=== PATIENT | male | born 1965 | race Hispanic/Latino ===

== ENCOUNTER 2019-01-24 21:23 | Inpatient (IN) | payer BC ==
--- OUTSIDE RECORDS SUMMARY | 2019-01-24 21:27 | XMS REPORT ---
:1965 [facility] Address [address] [place] [address] Dr. Malhotra [address] [place] [id number] Care Team Providers Name Role Phone Unavailable Unavailable Unavailable Problems This patient has no known problems. Allergies, Adverse Reactions, Alerts This patient has no known allergies or adverse reactions. Medications This patient has no known medications.
--- NOTE | 2019-01-24 22:25 | EDPHYS ---
Physician Documentation [facility] Name: Jose Murphy Jr Age: 53 yrs Sex: Male : 1965 Arrival Date: 01/24/2019 Time: 21:26 Bed 28 Private MD: Teto Roberts T ED Physician Gonzales Anguiano HPI: 01/24 22:20 This 53 yrs old Male presents to ER via Wheelchair with complaints of Back rell Pain. 22:20 The patient presents with pain that is acute. The symptoms are located in the left rell scapular area. Historical: - Allergies: 21:40 No Known Allergies; lp1 - Home Meds: 21:40 Cytoxan Oral [Active]; Decadron Oral [Active]; Prilosec 20 mg Oral cpDR 1 cap once lp1 daily [Active]; - PMHx: 21:40 Multiple Myeloma (Poems syndrome); lp1 - PSHx: 21:40 None; lp1 - Immunization history:: Adult Immunizations up to date. - Social history:: Smoking status: Patient/guardian denies using tobacco. - Ebola Screening: : No symptoms or risks identified at this time. - Family history:: not pertinent. ROS: 22:20 Constitutional: Negative for fever, chills, and weight loss, Eyes: Negative for injury, rell pain, redness, and discharge, ENT: Negative for injury, pain, and discharge, Neck: Negative for injury, pain, and swelling, Respiratory: Negative for shortness of breath, cough, wheezing, and pleuritic chest pain, Abdomen/GI: Negative for abdominal pain, nausea, vomiting, diarrhea, and constipation, Back: Negative for injury and pain, : Negative for injury, bleeding, discharge, and swelling, MS/Extremity: Negative for injury and deformity, Skin: Negative for injury, rash, and discoloration, Neuro: Negative for headache, weakness, numbness, tingling, and seizure, Psych: Negative for depression, anxiety, suicide ideation, homicidal ideation, and hallucinations, Allergy/Immunology: Negative for hives, rash, and allergies, Endocrine: Negative for neck swelling, polydipsia, polyuria, polyphagia, and marked weight changes, Hematologic/Lymphatic: Negative for swollen nodes, abnormal bleeding, and unusual bruising. 22:20 Cardiovascular: Positive for chest pain. Exam: 22:20 Constitutional: This is a well developed, well nourished patient who is awake, alert, rell and in no acute distress. Head/Face: Normocephalic, atraumatic. Eyes: Pupils equal round and reactive to light, extra-ocular motions intact. Lids and lashes normal. Conjunctiva and sclera are non-icteric and not injected. Cornea within normal limits. Periorbital areas with no swelling, redness, or edema. ENT: Nares patent. No nasal discharge, no septal abnormalities noted. Tympanic membranes are normal and external auditory canals are clear. Oropharynx with no redness, swelling, or masses, exudates, or evidence of obstruction, uvula midline. Mucous membranes moist. Neck: Trachea midline, no thyromegaly or masses palpated, and no cervical lymphadenopathy. Supple, full range of motion without nuchal rigidity, or vertebral point tenderness. No Meningismus. Chest/axilla: Normal chest wall appearance and motion. Nontender with no deformity. No lesions are appreciated. Cardiovascular: Regular rate and rhythm with a normal S1 and S2. No gallops, murmurs, or rubs. Normal PMI, no JVD. No pulse deficits. Respiratory: Lungs have equal breath sounds bilaterally, clear to auscultation and percussion. No rales, rhonchi or wheezes noted. No increased work of breathing, no retractions or nasal flaring. Abdomen/GI: Soft, non-tender, with normal bowel sounds. No distension or tympany. No guarding or rebound. No evidence of tenderness throughout. Back: No spinal tenderness. No costovertebral tenderness. Full range of motion. Skin: Warm, dry with normal turgor. Normal color with no rashes, no lesions, and no evidence of cellulitis. MS/ Extremity: Pulses equal, no cyanosis. Neurovascular intact. Full, normal range of motion. Neuro: Awake and alert, GCS 15, oriented to person, place, time, and situation. Cranial nerves II-XII grossly intact. Motor strength 5/5 in all extremities. Sensory grossly intact. Cerebellar exam normal. Normal gait. Psych: Awake, alert, with orientation to person, place and time. Behavior, mood, and affect are within normal limits. 23:32 Musculoskeletal/extremity: DVT Exam: No signs of deep vein thrombosis. no pain, no rell swelling, no tenderness, negative Homans' sign noted on exam, no appreciated bluish discoloration, no erythema, no increased warmth. Vital Signs: 21:40 BP 162 / 98; Pulse 107; Resp 18; Temp 99.1(O); Pulse Ox 97% on R/A; Weight 90.72 kg; lp1 Height 5 ft. 9 in. (175.26 cm); Pain 7/10; 22:00 BP 155 / 93 RA; Pulse 94; Resp 19 S; Pulse Ox 98% on R/A; rv 22:30 BP 147 / 95 RA Supine; Pulse 94; Resp 19 S; Pulse Ox 96% on R/A; rv 23:30 BP 138 / 94 RA Supine; Pulse 91; Resp 17 S; Pulse Ox 96% on R/A; rv 21:40 Body Mass Index 29.53 (90.72 kg, 175.26 cm) lp1 MDM: 21:54 Patient medically screened. [facility] 22:21 Data reviewed: vital signs, nurses notes, lab test result(s), EKG, radiologic studies, [facility] plain films. 01/24 22:20 Order name: Basic Metabolic Panel; Complete Time: 23:44 [facility] 01/24 22:20 Order name: CBC with Diff [facility] 01/24 22:20 Order name: LFT's; Complete Time: 23:44 [facility] 01/24 22:20 Order name: Magnesium; Complete Time: 23:44 [facility] 01/24 22:20 Order name: NT PRO-BNP; Complete Time: 23:44 [facility] 01/24 22:20 Order name: PT-INR; Complete Time: 23:30 [facility] 01/24 22:20 Order name: Troponin (emerg Dept Use Only); Complete Time: 23:44 [facility] 01/24 23:00 Order name: Manual Differential [facility] 01/24 23:12 Order name: Basic Metabolic Panel [facility] 01/24 23:12 Order name: CBC with Automated Diff [facility] 01/24 23:12 Order name: Lipid Profile [facility] 01/24 23:12 Order name: Lipid Profile [facility] 01/24 23:12 Order name: Troponin I [facility] 01/24 23:12 Order name: Troponin I [facility] 01/24 22:20 Order name: XRAY Chest (1 view) [facility] 01/24 22:20 Order name: EKG; Complete Time: 22:20 [facility] 01/24 23:12 Order name: Echo with Doppler [facility] 01/24 23:12 Order name: Troponin I [facility] 01/24 23:31 Order name: Blood Culture Adult (2) [facility] 01/24 23:31 Order name: Procalcitonin [facility] 01/24 23:46 Order name: CT Aorta for Dissection [facility] 01/24 22:20 Order name: Cardiac monitoring; Complete Time: 22:52 [facility] 01/24 22:20 Order name: EKG - Nurse/Tech; Complete Time: 22:52 [facility] 01/24 22:20 Order name: IV Saline Lock; Complete Time: 22:52 [facility] 01/24 22:20 Order name: Labs collected and sent; Complete Time: 22:52 [facility] 01/24 22:20 Order name: O2 Per Protocol; Complete Time: 22:52 [facility] 01/24 22:20 Order name: O2 Sat Monitoring; Complete Time: 22:52 [facility] 01/24 23:12 Order name: Heart Healthy [facility] 01/24 23:12 Order name: EKG Electrocardiogram [facility] 01/24 23:12 Order name: EKG Electrocardiogram [facility] 01/24 23:44 Order name: EKG; Complete Time: 23:45 [facility] 01/24 23:44 Order name: EKG - Nurse/Tech; Complete Time: 00:05 [facility] Administered Medications: 22:48 Drug: Aspirin 162 mg Route: PO; rv 01/25 00:44 Follow up: Response: No adverse reaction rv 01/24 22:48 Drug: Lopressor (metoprolol TARTRATE) 50 mg Route: PO; rv 01/25 00:43 Follow up: Response: No adverse reaction rv 01/24 22:48 Drug: morphine 4 mg Route: IVP; Site: left antecubital; rv 01/25 00:42 Follow up: Response: Marked relief of symptoms rv 01/24 22:48 Drug: Zofran 4 mg Route: IVP; Site: left antecubital; rv 01/25 00:38 Follow up: Response: No adverse reaction rv 00:15 Drug: Lovenox 1 mg/kg Route: Sub-Q; Site: left lower abdomen; rv 00:43 Follow up: Response: No adverse reaction rv 00:18 Drug: Rocephin - (cefTRIAXone) 1 grams Route: IVPB; Infused Over: 30 mins; Site: left rv antecubital; 00:41 Follow up: IV Status: Completed infusion rv 00:18 Drug: Lopressor 5 mg Route: IVP; Site: left antecubital; rv 00:40 Follow up: Response: No adverse reaction rv 00:19 Drug: PlaVIX 600 mg Route: PO; rv 00:40 Follow up: Response: No adverse reaction rv 00:19 Drug: Pepcid 20 mg Route: IVP; Site: left antecubital; rv 00:39 Follow up: Response: No adverse reaction rv Disposition: 01/24/19 22:24 Hospitalization ordered by Shala Osei for Inpatient Admission. Preliminary diagnosis are Chest pain, unspecified, Essential (primary) hypertension, Multiple myeloma - began chemo today, Elevated white blood cell count, Non-ST elevation (NSTEMI) myocardial infarction. - Bed requested for Telemetry/MedSurg (Inpatient). - Status is Inpatient Admission. rv - Condition is Fair. - Problem is new. - Symptoms have improved. UTI on Admission? No Signatures: Dispatcher [employer] EDMS Gonzales Anguiano MD MD cha Pena, Laura RN RN lp1 Ida Larios mw2 Avila Thomas RN RN rv Corrections: (The following items were deleted from the chart) 01/24 23:43 22:24 Hospitalization Ordered by Shala Osei MD for Observation. Preliminary mw2 diagnosis is Chest pain, unspecified; Essential (primary) hypertension; Multiple myeloma - began chemo today. Bed requested for Telemetry/MedSurg (observation). Status is Observation. Condition is Fair. Problem is new. Symptoms have improved. UTI on Admission? No. rell 23:46 23:43 01/24/2019 22:24 Hospitalization Ordered by Shala Osei MD for Observation. rell Preliminary diagnosis is Chest pain, unspecified; Essential (primary) hypertension; Multiple myeloma - began chemo today. Bed requested for Telemetry/MedSurg (observation). Status is Observation. Condition is Fair. Problem is new. Symptoms have improved. UTI on Admission? No. mw2 23:47 23:46 01/24/2019 22:24 Hospitalization Ordered by Shala Osei MD for Inpatient rell Admission. Preliminary diagnosis is Chest pain, unspecified; Essential (primary) hypertension; Multiple myeloma - began chemo today. Bed requested for Telemetry/MedSurg (Inpatient). Status is Inpatient Admission. Condition is Fair. Problem is new. Symptoms have improved. UTI on Admission? No. rell 23:50 23:47 01/24/2019 22:24 Hospitalization Ordered by Shala Osei MD for Inpatient mw2 Admission. Preliminary diagnosis is Chest pain, unspecified; Essential (primary) hypertension; Multiple myeloma - began chemo today; Elevated white blood cell count; Non-ST elevation (NSTEMI) myocardial infarction. Bed requested for Telemetry/MedSurg (Inpatient). Status is Inpatient Admission. Condition is Fair. Problem is new. Symptoms have improved. UTI on Admission? No. rell 01/25 00:54 01/24 23:50 01/24/2019 22:24 Hospitalization Ordered by Shala Osei MD for Inpatient rv Admission. Preliminary diagnosis is Chest pain, unspecified; Essential (primary) hypertension; Multiple myeloma - began chemo today; Elevated white blood cell count; Non-ST elevation (NSTEMI) myocardial infarction. Bed requested for Telemetry/MedSurg (Inpatient). Status is Inpatient Admission. Condition is Fair. Problem is new. Symptoms have improved. UTI on Admission? No. mw2
--- NOTE | 2019-01-24 22:25 | ER ---
Nurse's Notes [facility] Name: Jose Murphy Jr Age: 53 yrs Sex: Male : 1965 Arrival Date: 01/24/2019 Time: 21:26 Bed 28 Private MD: Teto Roberts T Diagnosis: Chest pain, unspecified;Essential (primary) hypertension;Multiple myeloma-began chemo today;Elevated white blood cell count;Non-ST elevation (NSTEMI) myocardial infarction Presentation: 01/24 21:38 Presenting complaint: Patient states: Chest and arm pain since Tuesday, L shoulder blade lp1 pain that has been all day today; States taking first dose of Decadron and Cytoxan today for Multiple Myeloma. Transition of care: patient was not received from another setting of care. Onset of symptoms was January 24, 2019. Risk Assessment: Do you want to hurt yourself or someone else? Patient reports no desire to harm self or others. Initial Sepsis Screen: Does the patient meet any 2 criteria? No. Patient's initial sepsis screen is negative. Does the patient have a suspected source of infection? No. Patient's initial sepsis screen is negative. Care prior to arrival: None. 21:38 Method Of Arrival: Wheelchair lp1 21:38 Acuity: SEA 3 lp1 Historical: - Allergies: 21:40 No Known Allergies; lp1 - Home Meds: 21:40 Cytoxan Oral [Active]; Decadron Oral [Active]; Prilosec 20 mg Oral cpDR 1 cap once lp1 daily [Active]; - PMHx: 21:40 Multiple Myeloma (Poems syndrome); lp1 - PSHx: 21:40 None; lp1 - Immunization history:: Adult Immunizations up to date. - Social history:: Smoking status: Patient/guardian denies using tobacco. - Ebola Screening: : No symptoms or risks identified at this time. - Family history:: not pertinent. Screenin:41 Abuse screen: Denies threats or abuse. Denies injuries from another. Nutritional lp1 screening: No deficits noted. Tuberculosis screening: No symptoms or risk factors identified. 21:46 Fall Risk None identified. rv Assessment: 21:44 General: Appears in no apparent distress. comfortable, Behavior is calm, cooperative. rv Pain: Complains of pain in RIGHT SHOULDER\E\. Pain: Pain does not radiate. Neuro: Level of Consciousness is awake, alert, obeys commands, Oriented to person, place, time, situation. Cardiovascular: Capillary refill < 3 seconds Rhythm is sinus tachycardia. Respiratory: Airway is patent. GI: No signs and/or symptoms were reported involving the gastrointestinal system. : No signs and/or symptoms were reported regarding the genitourinary system. EENT: No signs and/or symptoms were reported regarding the EENT system. Derm: Skin is intact. Musculoskeletal: Reports pain in RIGHT SHOULDER. 01/25 00:00 Reassessment: Patient appears in no apparent distress at this time. Patient and/or rv family updated on plan of care and expected duration. Pain level reassessed. Patient is alert, oriented x 3, equal unlabored respirations, skin warm/dry/pink. Vital Signs: 01/24 21:40 BP 162 / 98; Pulse 107; Resp 18; Temp 99.1(O); Pulse Ox 97% on R/A; Weight 90.72 kg; lp1 Height 5 ft. 9 in. (175.26 cm); Pain /10; 22:00 BP 155 / 93 RA; Pulse 94; Resp 19 S; Pulse Ox 98% on R/A; rv 22:30 BP 147 / 95 RA Supine; Pulse 94; Resp 19 S; Pulse Ox 96% on R/A; rv 23:30 BP 138 / 94 RA Supine; Pulse 91; Resp 17 S; Pulse Ox 96% on R/A; rv 21:40 Body Mass Index 29.53 (90.72 kg, 175.26 cm) lp1 ED Course: 21:26 Patient arrived in ED. do 21:27 Teto Roberts MD is Private Physician. do 21:38 EKG done, by ED staff. lp1 21:39 Triage completed. lp1 21:41 Arm band placed on left wrist. lp1 21:41 Patient has correct armband on for positive identification. Placed in gown. Bed in low lp1 position. brick extruder operator on. Pulse ox on. NIBP on. 21:44 Avila Thomas RN is Primary Nurse. rv 21:54 Gonzales Anguiano MD is Attending Physician. rell 22:22 Shala Osei MD is Hospitalizing Provider. rell 22:45 Inserted saline lock: 20 gauge in left antecubital area, using aseptic technique. Blood rv collected. 22:53 XRAY Chest (1 view) In Process Unspecified. EDMS 23:40 Notified ED physician of a critical lab result(s). Troponin of 0.96. Dr Anguiano bb notified. 23:59 First set of blood cultures drawn by me, Second set of blood cultures drawn by me. lt1 04 00:29 CT completed. Patient tolerated procedure well. Patient moved to CT via stretcher. Patient moved back from CT. 00:44 CT Aorta for Dissection Sent. rv 00:44 No provider procedures requiring assistance completed. Patient admitted, IV remains in rv place. Administered Medications: 01/24 22:48 Drug: Aspirin 162 mg Route: PO; rv 01/25 00:44 Follow up: Response: No adverse reaction rv 01/24 22:48 Drug: Lopressor (metoprolol TARTRATE) 50 mg Route: PO; rv 01/25 00:43 Follow up: Response: No adverse reaction rv 01/24 22:48 Drug: morphine 4 mg Route: IVP; Site: left antecubital; rv 01/25 00:42 Follow up: Response: Marked relief of symptoms rv 01/24 22:48 Drug: Zofran 4 mg Route: IVP; Site: left antecubital; rv 01/25 00:38 Follow up: Response: No adverse reaction rv 00:15 Drug: Lovenox 1 mg/kg Route: Sub-Q; Site: left lower abdomen; rv 00:43 Follow up: Response: No adverse reaction rv 00:18 Drug: Rocephin - (cefTRIAXone) 1 grams Route: IVPB; Infused Over: 30 mins; Site: left rv antecubital; 00:41 Follow up: IV Status: Completed infusion rv 00:18 Drug: Lopressor 5 mg Route: IVP; Site: left antecubital; rv 00:40 Follow up: Response: No adverse reaction rv 00:19 Drug: PlaVIX 600 mg Route: PO; rv 00:40 Follow up: Response: No adverse reaction rv 00:19 Drug: Pepcid 20 mg Route: IVP; Site: left antecubital; rv 00:39 Follow up: Response: No adverse reaction rv Outcome: 01/24 22:24 Decision to Hospitalize by Provider. rell 01/25 00:44 Admitted to Med/surg accompanied by tech, via wheelchair, room 206, with chart, Report rv called to FABIÁN PRAJAPATI Condition: good Instructed on the need for admit, Demonstrated understanding of instructions. 00:54 Patient left the ED. rv Signatures: Dispatcher [employer] EDGonzales Danielle MD MD cha Hagler, Ervin eh Ballard, Brenda, RN RN bb Salima Barrera RN RN lp1 Corrie Briceño Ronaldo RN RN Lali Bedolla 1
[2019-01-24] MEDS ORDERED: MORPHINE 4 MG/ML SYR ONE (22:38)
[2019-01-24] MEDS ORDERED: METOPROLOL TAR 50 MG TAB ONE (22:38)
[2019-01-24] MEDS ORDERED: ASPIRIN 81 MG CHEWABLE TABLET ONE (22:38)
[2019-01-24] MEDS ORDERED: ENOXAPARIN 100 MG/ML SYR SQ ONE (22:39)
[2019-01-24] MEDS ORDERED: ONDANSETRON 4 MG/2 ML VIAL ONE (22:39)
[2019-01-24 22:57] LABS: Absolute Lymphocytes (CBC) 1.2 K/uL (0.7-4.9); Absolute Monocytes 0.1 K/uL (0.1-1.3); Absolute Neutrophil 24.2 K/uL (1.8-8.0); Basophils % 0.4 % (0-1.3); Lymphocytes % 4.6 % (15.3-44.8); MPV 6.5 fL (7.6-11.3); Monocytes % 0.5 % (3.3-12.3); RBC Red Blood Cell Count 5.21 M/uL (4.33-5.43)
[2019-01-24 23:00] LABS: Protime INR 1.18
[2019-01-24] MEDS ORDERED: ACETAMINOPHEN 500 MG TAB PO PRN (23:08)
[2019-01-24] MEDS ORDERED: ALPRAZOLAM 0.25 MG TABLET PO PRN (23:08)
[2019-01-24] MEDS ORDERED: MORPHINE 4 MG/ML SYR IV PRN (23:08)
[2019-01-24 23:39] LABS: Albumin 3.7 g/dL (3.4-5.0); Bilirubin Direct 0.2 mg/dL (0-0.2); Bilirubin Total 0.6 mg/dL (0.2-1.0); Magnesium 2.1 mg/dL (1.8-2.4); Potassium 4.6 mmol/L (3.5-5.1); Protein, Total 7.8 g/dL (6.4-8.2)
[2019-01-24 23:42] LABS: Troponin (Emerg Dept Use Only) 0.96 ng/mL (0.0-0.045)
[2019-01-24 23:46] LABS: Blood Morphology Comment NOT SEEN (NOT SEEN); Platelet Estimate INCR
[2019-01-25] MEDS ORDERED: METOPROLOL TARTRATE 5 MG/5 ML INJ IV ONE (00:19)
[2019-01-25] MEDS ORDERED: CEFTRIAXONE/SWI 1gm 1 GM/10 ML SYR ONE (00:19)
[2019-01-25] MEDS ORDERED: CLOPIDOGREL 75 MG TABLET ONE (00:19)
[2019-01-25] MEDS ORDERED: FAMOTIDINE 20 MG/2 ML VIAL IV ONE (00:19)
[2019-01-25 07:51] LABS: Potassium 4.7 mmol/L (3.5-5.1)
[2019-01-25 08:09] LABS: Troponin I 2.47 ng/mL (0.0-0.045)
[2019-01-25 08:10] LABS: Absolute Lymphocytes (CBC) 1.1 K/uL (0.7-4.9); Absolute Monocytes 0.6 K/uL (0.1-1.3); Absolute Neutrophil 21.4 K/uL (1.8-8.0); Basophils % 0.1 % (0-1.3); Lymphocytes % 4.9 % (15.3-44.8); MPV 6.7 fL (7.6-11.3); Monocytes % 2.5 % (3.3-12.3); RBC Red Blood Cell Count 5.02 M/uL (4.33-5.43)
--- NOTE | 2019-01-25 08:17 | EKG ---
Test Date: 2019-01-24 Test Time: 23:56:10 Weapons Designer: MEASUREMENT RESULTS: Intervals: Rate: 85 [place]: 142 QRSD: 86 QT: 332 QTc: 395 [place]: P: 45 [place]: 142 QRS: 1 T: 10 INTERPRETIVE STATEMENTS: Normal sinus rhythm Nonspecific T wave abnormality Abnormal ECG Compared to ECG 01/24/2019 21:35:23 T-wave abnormality now present Sinus tachycardia no longer present Electronically Signed On 01-25-19 07:50:18 CDT by Mario Crandall
--- NOTE | 2019-01-25 08:18 | EKG ---
Test Date: 2019-01-24 Test Time: 21:35:23 Feed Elevator Worker: JESSICA MEASUREMENT RESULTS: Intervals: Rate: 108 [place]: 144 QRSD: 88 QT: 314 QTc: 420 [place]: P: 41 [place]: 144 QRS: -10 T: 0 INTERPRETIVE STATEMENTS: Sinus tachycardia Otherwise normal ECG No previous ECG available for comparison Electronically Signed On 01-25-19 07:51:04 CDT by Mario Crandall
--- NOTE | 2019-01-25 08:57 | RAD REPORT ---
EXAM DESCRIPTION: RAD - Chest Single View - 01/24/2019 10:52 pm CLINICAL HISTORY: CHEST PAIN Chest pain. COMPARISON: No comparisons FINDINGS: Portable technique limits examination quality. The lungs are grossly clear. The heart is normal in size. No displaced fractures. IMPRESSION: No acute intrathoracic process suspected.
[2019-01-25] MEDS ORDERED: ENOXAPARIN 40 MG/0.4 ML SQ SCH (09:00)
[2019-01-25] MEDS: METOPROLOL TAR 50 MG TAB PO SCH ×2 (09:10→20:42)
[2019-01-25] MEDS: ASPIRIN EC 81 MG TAB PO SCH (09:11)
--- NOTE | 2019-01-25 09:50 | RAD REPORT ---
EXAM DESCRIPTION: RAD - Chest Single View - 01/25/2019 8:43 am CLINICAL HISTORY: Elevated Trop Chest pain. COMPARISON: Chest Single View dated 01/24/2019 FINDINGS: Portable technique limits examination quality. The lungs are grossly clear. The heart is normal in size. No displaced fractures. IMPRESSION: No acute intrathoracic process suspected.
--- NOTE | 2019-01-25 10:32 | P.HP ---
Certification for Inpatient Patient admitted to: Observation With expected LOS: <2 Midnights Patient will require the following post-hospital care: None Practitioner: I am a practitioner with admitting privileges, knowledge of patient current condition, hospital course, and medical plan of care. Services: Services provided to patient in accordance with Admission requirements found in Title 42 Section 412.3 of the Code of Federal Regulations Patient History Date of Service: 01/24/19 Reason for admission: DYSPNEA AND CHEST PAIN History of Present Illness: PATIENT IS A 53-YEAR-OLD GENTLEMAN WHO RECEIVED HIS 1ST COURSE OF CHEMOTHERAPY YESTERDAY AT [facility]. PATIENT IS BEING TREATED FOR MULTIPLE MYELOMA. AFTER THE CHEMOTHERAPY PATIENT STATES HE BECAME SHORT OF BREATH. HE WAS HAVING A HARD TIME CATCHING HIS BREATH AND HE CAME INTO THE EMERGENCY ROOM. HE DID HAVE SOME CHEST DISCOMFORT WELL. HOWEVER, SHORTLY AFTER COMING TO THE ER IN GETTING PAIN MEDICATION HIS SYMPTOMS SUBSIDED AND HE WAS FEELING MUCH BETTER. HIS CHEST PAIN HAS COMPLETELY RESOLVED. CURRENTLY HE FEELS LIKE HE IS FEELING GOOD ENOUGH FOR DISCHARGE HOME. WE DO HAVE SERIAL TROPONINS AND EKG PENDING. HE STATES HE HAD AN ECHOCARDIOGRAM AND STRESS TEST PERFORMED ALL IN THE LAST YEAR. THERE WAS NO SIGNIFICANT ABNORMALITY. WILL RULE HIM OUT FOR ACUTE CORONARY SYNDROME AND THEN POSSIBLE DISCHARGE AFTERWARDS. Allergies No Known Allergies Allergy (Unverified 09/22/12 00:44) Home Medications: Cyclophosphamide 50 mg PO DAILY 01/25/19 Dexamethasone [Decadron] 4 mg PO DAILY 01/25/19 Omeprazole 1 tab PO DAILY 01/25/19 Ondansetron [Zofran] 4 mg PO Q6H PRN 01/25/19 - Past Medical/Surgical History Has patient received pneumonia vaccine in the past: No Diabetic: No -: multiple myoloma -: neuropathy Past Surgical History: Patient denies surgical history - Family History Father Medical History: Cancer Mother Medical History: Cancer Notes: breast cancer Brother Medical History: Cancer Notes: prostate - Social History Smoking Status: Former smoker Alcohol use: No CD- Drugs: No Caffeine use: Yes Place of Residence: Home Review of Systems 10-point ROS is otherwise unremarkable Physical Examination - Vital Signs Temperature: 98 F Blood Pressure: 120/69 Pulse: 80 Respirations: 20 Pulse Ox (%): 95 - Physical Exam General: Alert, In no apparent distress, Oriented x3 HEENT: Atraumatic, PERRLA, Mucous membr. moist/pink, EOMI, Sclerae nonicteric Neck: Supple, 2+ carotid pulse no bruit, No LAD, Without JVD or thyroid abnormality Respiratory: Clear to auscultation bilaterally, Normal air movement Cardiovascular: Regular rate/rhythm, Normal S1 S2, No murmurs Gastrointestinal: Normal bowel sounds, Soft and benign, Non-distended, No tenderness Musculoskeletal: No clubbing, No swelling, No tenderness Integumentary: No rashes Neurological: Normal gait, Normal speech, Normal strength at 5/5 x4 extr, Normal tone, Sensation intact, Cranial nerves 3-12 intact, Normal affect Lymphatics: No axilla or inguinal lymphadenopathy - Studies Laboratory Data (last 24 hrs) 01/24/19 22:45: PT 13.8 H, INR 1.18 01/24/19 22:45: WBC 25.7 H*, Hgb 14.3, Hct 42.0, Plt Count 542 H 01/24/19 22:45: Sodium 135 L, Potassium 4.6, BUN 25 H, Creatinine 1.00, Glucose 185 H, Magnesium 2.1, Total Bilirubin 0.6, AST 17, ALT 18, Alkaline Phosphatase 106 01/24/19 06:50: Sodium Cancelled, Potassium Cancelled, BUN Cancelled, Creatinine Cancelled, Glucose Cancelled 01/24/19 06:50: WBC Cancelled, Hgb Cancelled, Hct Cancelled, Plt Count Cancelled Assessment & Plan - Problems (Diagnosis) (1) Chest pain, rule out acute myocardial infarction Current Visit: Yes Status: Acute (2) Dyspnea Current Visit: Yes Status: Acute - Plan 1. SERIAL TROPONINS AND EKG 2. CARDIOLOGY CONSULTATION 3. ECHOCARDIOGRAM AND INPATIENT STRESS TEST PERFORMED AN OUTPT WHICH WERE NEGATIVE 4. ANTI-PLATELET THERAPY, BETA-TRENA, STATIN, AND O2 NEEDED 5. IV MORPHINE FOR PAIN 6. GI/DVT PROPHYLAXIS; ANTICIPATE DISCHARGE HOME IN THE NEXT 24 HR IF WORKUP IS NEGATIVE Discharge Plan: Home Plan to discharge in: 24 Hours - Advance Directives Does patient have a Living Will: No Does patient have a Durable POA for Healthcare: No - Code Status/Comfort Care Code Status Assessed: Yes Code Status: Full Code Critical Care: No Time Spent Managing PTS Care (In Minutes): 40
[2019-01-25] MEDS ORDERED: PRASUGREL (EFFIENT) 10 MG TAB PO ONE (11:31)
--- NOTE | 2019-01-25 12:22 | RAD REPORT ---
EXAM DESCRIPTION: CT Angiography Chest With Intravenous Contrast CT Angiography Abdomen and Pelvis With Intravenous Contrast CLINICAL HISTORY: The patient is 53 years old and is Male; CHEST PAIN TECHNIQUE: Axial computed tomographic angiography images of the chest, abdomen and pelvis with intra venous contrast using CT angiography protocol. Sagittal and coronal reformatted images were created and reviewed. Sagittal and coronal reformatted images were created and reviewed. This CT exam wa s performed using one or more of the following dose reduction techniques: automated exposure contro l, adjustment of the mA and/or kV according to patient size, and/or use of iterative reconstruction t echnique. MIP reconstructed images were created and reviewed. COMPARISON: No relevant prior studies available. FINDINGS: VASCULATURE: AORTA: No acute findings. No aortic aneurysm. No dissection. PULMONARY ARTERIES: Unremarkable as visualized. No pulmonary embolism is identified. GREAT VESSELS OF AORTIC ARCH: No acute findings. No dissection. No arterial occlusion or sig nificant stenosis. CELIAC TRUNK AND MESENTERIC ARTERIES: No acute findings. No occlusion or significant stenosis. RENAL ARTERIES: No acute findings. No occlusion or significant stenosis. ILIAC ARTERIES: No acute findings. No occlusion or significant stenosis. CHEST: LUNGS: A 4 mm right middle lobe pulmonary nodule is present. Minimal dependent densities are not ed within the lung bases. PLEURAL SPACE: Unremarkable. No significant effusion. No pneumothorax. HEART: Unremarkable. No cardiomegaly. No significant pericardial effusion. ABDOMEN: LIVER: There is a diffuse decrease in hepatic parenchymal density, consistent with fatty infiltr ation. The liver is enlarged. GALLBLADDER AND BILE DUCTS: Unremarkable. No calcified stones. No ductal dilation. PANCREAS: Unremarkable. No ductal dilation. No mass. SPLEEN: Unremarkable. No splenomegaly. ADRENALS: Unremarkable. No mass. KIDNEYS AND URETERS: Bilateral nonspecific perinephric stranding is present. The kidneys enhance symmetrically. No obstructing renal or ureteral calculus is seen. There is no hydronephrosis or hydr oureter of either kidney. No solid mass. STOMACH AND BOWEL: The stomach is moderately distended. The small bowel is normal in caliber. St ool is present throughout the colon. There is no mucosal thickening or evidence of bowel obstruction. PELVIS: APPENDIX: The appendix is normal in caliber without surrounding inflammation. BLADDER: The bladder is well distended. REPRODUCTIVE: Unremarkable as visualized. CHEST, ABDOMEN and PELVIS: INTRAPERITONEAL SPACE: Unremarkable. No significant fluid collection. No free air. BONES/JOINTS: Multiple sclerotic foci are present within the pelvis and throughout the spine. Th is correlates with the recent bone scan. No acute fracture. No dislocation. SOFT TISSUES: Small fat-containing umbilical hernia is present. LYMPH NODES: Shotty retroperitoneal adenopathy is present. Minimally prominent mediastinal and hilar adenopathy is present. IMPRESSION: 1. No evidence of aortic aneurysm or dissection. 2. Extensive sclerotic lesions throughout the axial and appendicular skeleton which correlates to p rior bone scan findings. Findings are concerning for metastatic disease. 3. Prominent mediastinal and hilar adenopathy with extensive shotty retroperitoneal adenopathy. Fin dings are concerning for malignancy. Correlation with patient's history is recommended. 4. Incidental right middle lobe pulmonary nodule. ACR White Paper guidelines (MacMahon, et al. Radi ology 2017; 284(1):228-43) suggest an optional follow-up chest CT could be performed at 12 months due to the high risk of malignancy. If unchanged, no further follow-up is necessary. Electronically signed by: Lucia Murillo MD 01/25/2019 12:49 AM CDT Due to temporary technical issues with the PACS/Fluency reporting system, reports are being signed by the in house radiologist as a courtesy to ensure prompt reporting. The interpreting radiologist is f ully responsible for the content of the report.
--- NOTE | 2019-01-25 12:33 | CON ---
Chief Complaint: Chest pain. History Of Present Illness: Mr. Murphy came to the hospital with chest pain. He saw Dr. Mckoy, who had given him chemotherapy a few days earlier. She thought he might have been having acute coronary syndrome, send him to the ER. He has been in the hospital and has had very abnormal cardiac enzymes. The highest troponin so far is 2.4, the initial one was 0.9. He has no previous history of myocard ial infarction or vascular disease. He is a former cigarette smoker. About 2 weeks ago, he had a no ninvasive cardiac workup, that was normal. He has Rdui syndrome with multiple myeloma and has un dergone one induction chemotherapy. He is on the list to have an autologous bone marrow transplant f or this disease at [facility] and that is why he underwent a noninvasive cardiac workup recently. Lukasz marie has been taking dexamethasone, cyclophosphamide, Zofran, and omeprazole. Physical Examination: Vital Signs: He is 5 feet 9 inches, 197 pounds. General: Alert, oriented, pleasant, not in distress. Lungs: Clear. Heart: Within normal limits. Abdomen: Soft. Extremities: Normal. Diagnostic Data: His EKG shows nonspecific T-wave abnormality. Laboratory Data: Reveals an elevated white blood cell count. Platelet count is also elevated at 606 ,000. His creatinine is 1.0. Blood sugar 185, 153. His total cholesterol is 124. Impression: The patient has had a non-ST elevation non-Q-wave myocardial infarction. He should unde rgo a cardiac cath. Right now, it is just a few hours since he ate and he has had Lovenox this morni ng. My plan is to load him with Effient today, hold Lovenox, make him n.p.o. after midnight, and do a cardiac cath and possible stent tomorrow. The patient seems to understand the procedure, potential benefits, indications, risk s, and agrees to proceed. STEVEN/EBONY Voice ID: [id number] Report ID: [id number]
--- NOTE | 2019-01-25 17:16 | EKG ---
Test Date: 2019-01-25 Test Time: 07:47:26 Training And Documentation Specialist: BOBY MEASUREMENT RESULTS: Intervals: Rate: 82 ID: [id number] QRSD: 92 QT: 370 QTc: 432 [place]: P: 35 ID: [id number] QRS: 7 T: 0 INTERPRETIVE STATEMENTS: Normal sinus rhythm Nonspecific T wave abnormality Abnormal ECG Compared to ECG 01/24/2019 23:56:10 No significant changes Electronically Signed On 01-25-19 17:14:53 CDT by Mario Crandall
--- NOTE | 2019-01-25 17:54 | P.PN ---
Date of Service: 01/25/19 (Oncology) Mr Jose Murphy is known to me from outpatient for management of his recent diagnosis of POEMS syndrome. He initially was referred to me for work up for thrombocytosis. 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 He has been seen and evaluated by Stem cell transplant/ myeloma team in [facility] and currently awaiting transplant. In the meantime, he has been started on induction chemotherapy with oral cyclophosphamide and decadron. He presented to our clinic yesterday with epigastric/chest discomfort with radiation to the left arm along with belching and was advised to go to ER for work up to r/o ACS. As per cardiology, it appears to be NSTEMI and is awaiting cardiac cath tomorrow. He seems symptomatically better and back to his baseline. White count elevation is likely secondary to steroid use. Thrombocytosis due to the underlying POEMS. Please do not hesitate to contact me should you have any questions or concerns.
[2019-01-26] MEDS ORDERED: HEPA 1000U/500MLS 2,000 UNIT/1,000 ML BAG IV ONE (07:19)
[2019-01-26] MEDS ORDERED: LIDOCAINE 1% 20 ML MDV ONE (07:19)
[2019-01-26] MEDS ORDERED: NITROGLYCERIN/D5W 25 MG/250 ML BTL IV ONE (07:28)
[2019-01-26] MEDS ORDERED: HEPARIN 5000 UNIT/ML 1 ML VIAL ONE (07:28)
[2019-01-26] MEDS ORDERED: NICARDIPINE HCL 25 MG/10 ML IV ONE (07:28)
[2019-01-26] MEDS: ASPIRIN EC 81 MG TAB PO SCH (07:28)
[2019-01-26] MEDS ORDERED: ATROPINE SULF 1 MG/10 ML SYR IV ONE (07:28)
[2019-01-26] MEDS ORDERED: NA CHLORIDE 0.9% 0 ML ONE (07:28)
[2019-01-26] MEDS ORDERED: NITROGLYCERIN 100 MCG/ML SYR (for cath lab use only) IV ONE (07:28)
[2019-01-26] MEDS: METOPROLOL TAR 50 MG TAB PO SCH (07:29)
[2019-01-26] MEDS ORDERED: NA CHLORIDE 0.9% 500 ML ONE (07:59)
--- NOTE | 2019-01-26 08:17 | P.PN ---
Subjective Date of Service: 01/25/19 Patient's troponin were elevated. They have started trending downward. He remains asymptomatic. Scheduled for cardiac catheterization for non ST- elevation myocardial infarction Review of Systems 10-point ROS is otherwise unremarkable Physical Examination - Vital Signs Temperature: 98.0 F Blood Pressure: 115/66 Pulse: 70 Respirations: 18 Pulse Ox (%): 97 - Physical Exam General: Alert, In no apparent distress, Oriented x3 Respiratory: Clear to auscultation bilaterally, Normal air movement Cardiovascular: Regular rate/rhythm, Normal S1 S2 Gastrointestinal: Normal bowel sounds, Soft and benign, Non-distended, No tenderness Musculoskeletal: No tenderness Integumentary: No rashes Neurological: Normal speech, Normal tone, Sensation intact, Cranial nerves 3-12 intact, Normal affect Lymphatics: No axilla or inguinal lymphadenopathy - Studies Medications List Reviewed: Yes Assessment & Plan - Problems (Diagnosis) (1) Chest pain, rule out acute myocardial infarction Current Visit: Yes Status: Acute (2) Dyspnea Current Visit: Yes Status: Acute (3) POEMS syndrome Current Visit: Yes Status: Acute (4) Multiple myeloma Current Visit: Yes Status: Acute - Plan 1. SERIAL TROPONINS WERE ELEVATED; CARDIAC CATHETERIZATION MORNING 2. CARDIOLOGY CONSULTATION APPRECIATED 3. ECHOCARDIOGRAM AND INPATIENT STRESS TEST PERFORMED AN OUTPT WHICH WERE NEGATIVE 4. ANTI-PLATELET THERAPY, BETA-TRENA, STATIN, AND O2 NEEDED 5. IV MORPHINE FOR PAIN 6. CONTINUE WITH OUTPT FOLLOW-UP PENDING ONCOLOGY 7. GI/DVT PROPHYLAXIS; ANTICIPATE DISCHARGE HOME IN THE NEXT 24 HR IF WORKUP IS NEGATIVE Discharge Plan: Home Plan to discharge in: Greater than 2 days - Advance Directives Does patient have a Living Will: No Does patient have a Durable POA for Healthcare: No - Code Status/Comfort Care Code Status: Full Code Critical Care: No Time Spent Managing PTS Care (In Minutes): 30
[2019-01-26] MEDS ORDERED: MIDAZOLAM HCL 2 MG/2 ML INJ ONE (08:28)
[2019-01-26] MEDS ORDERED: FENTANYL CITR 100 MCG/2 ML ONE (08:29)
[2019-01-26] MEDS ORDERED: PRASUGREL (EFFIENT) 10 MG TAB PO SCH (09:00)
[2019-01-26] MEDS ORDERED: NITROGLYCERIN 0.4 MG/TAB SL PRN (09:15)
[2019-01-26 09:52] VITALS: O2SAT 97
--- NOTE | 2019-01-26 13:49 | P.PN ---
Subjective Date of Service: 01/26/19 Chief Complaint: DYSPNEA AND CHEST PAIN Subjective: No C/O voiced, Improving Patient seen and examined at bedside. at bedside. Chart reviewed and case discussed with nursing staff and Dr. Crandall. Reports no chest pain at this time. Reports no other symptoms. Dyspnea has resolved States he is doing well. No acute events noted overnight Review of Systems 10-point ROS is otherwise unremarkable Physical Examination - Vital Signs Temperature: 97.8 F Blood Pressure: 121/69 Pulse: 71 Respirations: 16 Pulse Ox (%): 98 - Physical Exam General: Alert, In no apparent distress, Oriented x3 HEENT: Atraumatic, PERRLA, EOMI Neck: Supple, JVD not distended Respiratory: Clear to auscultation bilaterally, Normal air movement Cardiovascular: Regular rate/rhythm, Normal S1 S2 Gastrointestinal: Normal bowel sounds, No tenderness - Studies Medications List Reviewed: Yes Assessment And Plan - Plan This is a 53-year-old male with: Chest pain NSTEMI Chest pain seems to have resolved. Cardiology consultation appreciated. Troponins were elevated, he is status post cardiac catheterization. Per cardiology, coronary is were normal, no blockage found. Though did have apical area of ischemia We will continue small dose Cardizem. He does not need Plavix or beta-tara at this time. Continue IV morphine for pain Provide oxygen if needed Anticipate discharge in the next 24 hr. Multiple myeloma. POEMS syndrome He will continue with outpatient follow up with an oncology. DVT prophylaxis: Lovenox GI prophylaxis: None Diet: Heart healthy Disposition: Pending symptomatic improvement. We will observe the next 1 4 hr , discharge in the morning if clinically stable Discharge Plan: Home Plan to discharge in: 24 Hours
--- NOTE | 2019-01-26 19:52 | OP ---
Surgeon: Mario Crandall MD Procedures: Left heart catheterization, coronary left ventricular angiography. Indication: Ocd-IN-skeimgwia GA. Procedure Findings: The patient has normal coronary arteries. There is no clot or dissection or art erial plaque. There is very slow flow in the distal part of the LAD, and there is also an apical GA. Apical akinesis is noted. All these findings are consistent with a Takotsubo myocardial infarction . Procedure In Detail: The patient was brought to the cardiac laboratory helper in a fasting state, sedated wit h Versed, fentanyl, prepared and draped in usual sterile fashion. Right radial approach was used. W e anesthetized the tissues over the right radial artery using 1% lidocaine after an appropriate time- out. We entered the artery with a 21-gauge needle, cannulated it with a 0.021 inch diameter guidewir e, placed a 6-Barb[place] Terumo sheath, flushed it, gave a radial cocktail consisting of nicardipine, hep rich and nitroglycerin. We guided a TIG catheter into the ascending aorta, coronary sinus region usi ng a Terumo Glidewire and fluoroscopy. The wire was removed. We were able to place the catheter tip in the right coronary, left coronary, and left ventricle without any problems. At the end of the pr ocedure, it was apparent no angioplasty or other intervention would be done. We removed the TIG cath eter using a guidewire to keep it as straight as possible, flushed the sheath, removed it, and closed the arteriotomy with a TR band. Estimated Blood Loss: 5 cc. Complications: None. Heavy Equipment Plumbing Supervisor: El Hardwick. STEVEN/EBONY Voice ID: [id number] Report ID: [id number]
[2019-01-27 05:18] VITALS: BMI 27.9
[2019-01-27] MEDS: ASPIRIN EC 81 MG TAB PO SCH (08:45)
[2019-01-27] MEDS ORDERED: DILTIAZEM HCL 120 MG SR CAP PO SCH (09:00)
[2019-01-27 09:49] VITALS: TEMP 97.7
--- NOTE | 2019-01-27 12:25 | P.DS ---
Admission Date: 01/25/19 Discharge Date: 01/27/19 Disposition: ROUTINE DISCHARGE Discharge Condition: GOOD Reason for Admission: DYSPNEA AND CHEST PAIN Consultations: Cardiology Oncology Brief History of Present Illness: PATIENT IS A 53-YEAR-OLD GENTLEMAN WHO RECEIVED HIS 1ST COURSE OF CHEMOTHERAPY YESTERDAY AT [facility]. PATIENT IS BEING TREATED FOR MULTIPLE MYELOMA. AFTER THE CHEMOTHERAPY PATIENT STATES HE BECAME SHORT OF BREATH. HE WAS HAVING A HARD TIME CATCHING HIS BREATH AND HE CAME INTO THE EMERGENCY ROOM. HE DID HAVE SOME CHEST DISCOMFORT WELL. HOWEVER, SHORTLY AFTER COMING TO THE ER IN GETTING PAIN MEDICATION HIS SYMPTOMS SUBSIDED AND HE WAS FEELING MUCH BETTER. HIS CHEST PAIN HAS COMPLETELY RESOLVED. CURRENTLY HE FEELS LIKE HE IS FEELING GOOD ENOUGH FOR DISCHARGE HOME. WE DO HAVE SERIAL TROPONINS AND EKG PENDING. HE STATES HE HAD AN ECHOCARDIOGRAM AND STRESS TEST PERFORMED ALL IN THE LAST YEAR. THERE WAS NO SIGNIFICANT ABNORMALITY. WILL RULE HIM OUT FOR ACUTE CORONARY SYNDROME AND THEN POSSIBLE DISCHARGE AFTERWARDS Hospital Course: Chest pain NSTEMI Chest pain seems to have resolved. Cardiology was consulted. Troponins were elevated, he is status post cardiac catheterization. Per cardiology, coronary is were normal, no blockage found. Though did have apical area of ischemia We will continue small dose Cardizem. He does not need beta-tara at this time. He otherwise remained stable throughout the stay. He will follow up with cardiology in 2 weeks. Multiple myeloma. POEMS syndrome He will continue with outpatient follow up with an oncology. Prior to discharge, patient was symptom free, tolerating PO, ambulating without concerns. He was hemodynamically stable. His cath site was without any hematoma or pain. His diagnosis and treatment plan were discussed with patient and at bedside. All questions were answered. They verbalized understanding. He was discharged in a safe and stable manner. Vital Signs/Physical Exam: Temp Pulse Resp BP Pulse Ox 97.7 F 83 16 114/72 98 01/27/19 08:00 01/27/19 08:45 01/27/19 08:00 01/27/19 08:45 01/27/19 08:00 General: Alert, In no apparent distress, Oriented x3 HEENT: Atraumatic, PERRLA, EOMI Neck: Supple, JVD not distended Respiratory: Clear to auscultation bilaterally, Normal air movement Cardiovascular: Regular rate/rhythm, Normal S1 S2 Gastrointestinal: Normal bowel sounds, No tenderness Musculoskeletal: No tenderness Integumentary: No rashes Neurological: Normal speech, Normal tone, Normal affect Lymphatics: No axilla or inguinal lymphadenopathy Laboratory Data at Discharge: WBC 23.1 K/uL (4.3-10.9) H* 01/25/19 06:50 Hgb 14.1 g/dL (13.6-17.9) 01/25/19 06:50 Hct 41.0 % (39.6-49.0) 01/25/19 06:50 Plt Count 606 K/uL (152-406) H 01/25/19 06:50 PT 13.8 SECONDS (9.5-12.5) H 01/24/19 22:45 INR 1.18 01/24/19 22:45 Sodium 137 mmol/L (136-145) 01/25/19 06:50 Potassium 4.7 mmol/L (3.5-5.1) 01/25/19 06:50 BUN 24 mg/dL (7-18) H 01/25/19 06:50 Creatinine 1.01 mg/dL (0.55-1.3) 01/25/19 06:50 Glucose 153 mg/dL (74-106) H 01/25/19 06:50 Magnesium 2.1 mg/dL (1.8-2.4) 01/24/19 22:45 Total Bilirubin 0.6 mg/dL (0.2-1.0) 01/24/19 22:45 AST 17 U/L (15-37) 01/24/19 22:45 ALT 18 U/L (12-78) 01/24/19 22:45 Alkaline Phosphatase 106 U/L (45-117) 01/24/19 22:45 Troponin I 2.14 ng/mL (0.0-0.045) H* 01/25/19 15:28 Triglycerides 173 mg/dL (<150) H 01/25/19 06:50 Cholesterol 124 mg/dL (<200) 01/25/19 06:50 HDL Cholesterol 33 mg/dL (40-60) L 01/25/19 06:50 Cholesterol/HDL Ratio 3.76 01/25/19 06:50 Home Medications: Cyclophosphamide 50 mg PO DAILY 01/25/19 Dexamethasone [Decadron*] 4 mg PO DAILY 01/25/19 Omeprazole 1 tab PO DAILY 01/25/19 Ondansetron [Zofran (Odt)*] 4 mg PO Q6H PRN 01/25/19 Aspirin [Aspir-Low] 81 mg PO DAILY #30 tablet. 01/27/19 Clopidogrel Bisulfate [Plavix] 75 mg PO DAILY #30 tablet 01/27/19 Diltiazem HCl [Cardizem] 120 mg PO DAILY #30 tablet 01/27/19 Nitroglycerin [Nitrostat*] 0.4 mg SL UD PRN #15 tab 01/27/19 New Medications: Aspirin [Aspir-Low] 81 mg PO DAILY #30 tablet. Clopidogrel Bisulfate [Plavix] 75 mg PO DAILY #30 tablet Diltiazem HCl [Cardizem] 120 mg PO DAILY #30 tablet Nitroglycerin [Nitrostat*] 0.4 mg SL UD PRN #15 tab PRN Reason: Pain Scale 2-4 (Mild) Patient Discharge Instructions: Please follow up with your primary care physician in 2-3 days. Please follow up with cardiology in 1-2 weeks Diet: AHA Activity: Ad chloe Followup: Sean Rowland MD [ACTIVE - CAN ADMIT] - 1-2 Weeks Time spent managing pt's care (in minutes): 45
[2019-01-27 14:20] VITALS: BP 100/57
--- NOTE | 2019-01-28 23:15 | PN ---
Date of Progress Note: 01/27/2019 Mr. Murphy [facility] Heart catheterization on 01/26/2019 revealed takotsubo syndrome. He had no focal stenosis. Some low flow in the distal LAD, apical ballooning. No intervention was d one. The patient is doing great and no issues with his right wrist. He will be going home on Cardiz em, aspirin, and Plavix, and we would like to see him in the office in the next 2 weeks. LISS/EBONY Voice ID: [id number] Report ID: [id number]
== END 2019-01-27 13:29 | disposition home or self-care (01) | DRG 287 ==
LOC: ER 21:23 → ERHOLD 23:14 → INTOOBSV 23:14 → 2ND 01-25 00:50 → OBSVTOIN 01-25 13:47
PROVIDERS: ADMIT Hospitalist; ATTEND Family Medicine
PROC: 4A023N7 Measurement of Cardiac Sampling and Pressure, Left Heart, Percutaneous Approach (ICD-10-PCS; principal; 2019-01-26)
PROC: B211YZZ Fluoroscopy of Multiple Coronary Arteries using Other Contrast (ICD-10-PCS; 2019-01-26)
PROC: B215YZZ Fluoroscopy of Left Heart using Other Contrast (ICD-10-PCS; 2019-01-26)
DX: I51.81 Takotsubo syndrome (principal); C90.00 Multiple myeloma not having achieved remission; Q93.82 Williams syndrome; G62.9 Polyneuropathy, unspecified; Z87.891 Personal history of nicotine dependence; D47.3 Essential (hemorrhagic) thrombocythemia
CPT/HCPCS: 36415; 71045; 71275; 74175; 80048; 80061; 80076; 82962; 83735; 83880; 84145; 84484; 85025; 85610; 87040; 93005; 93458; 96365; 96372; 96375; 99285; C1893; G0378; J0583; J0696; J1644; J1650; J2250; J2405; J3010; Q9967

== ENCOUNTER → 2023-11-03 | Emergency (ER) | payer OTHER ==
[~2023-11-03] MED LIST: DIPHENHYDRAMINE 50 MG/ML VIAL ONE
--- OUTSIDE RECORDS SUMMARY | 2023-11-03 05:45 | XMS REPORT | Clinical Summary ---
Author Name Unknown Organization [facility] Address [address] [place] [address] Care Team Providers Care Transportation Dispatch Manager Name Role Phone Jennie Rivera Unavailable [phone] Dewayne Nowak MD Primary Care Provider [phone] Daniel Rowe DDS Unavailable [phone] Jailene Gray MD Unavailable [phone] Grant Bangura MD Unavailable [phone] Allergies Active Allergy Reactions Criticality Noted Date Comments Carfilzomib Itching,Rash Medium 06/22/2023 Patient received C1D1 Daratumumab and Carfilzomib and had rash, redness, warmth 2 hours after treatment (discharged and returned 10 mins later) requiring additional Benadryl before resolving. Daratumumab Itching,Rash Medium 06/22/2023 Patient received C1D1 Daratumumab and carfilzomib and had rash, redness, warmth 2 hours after treatment (discharged and returned 10 mins later) requiring additional Benadryl before resolving. Diltiazem Rash Low 07/09/2019 Medications Medication Sig Dispensed Refills Start Date End Date Status traMADol (ULTRAM) 50 mg tabletIndicatio ns:Status post stem cell transplant,POEM S syndrome Take 1 tablet (50 mg) by mouth every 6 (six) hours as needed for moderate pain or severe pain. 30 tablet 0 06/17/2020 Active gabapentin (NEURONTIN) 600 mg tabletIndicatio ns:Status post stem cell transplant,POEM S syndrome Take 1 tablet (600 mg) by mouth 3 (three) times a day. 270 tablet 1 06/12/2021 Active cetirizine (ZyrTEC) 10 mg tablet TAKE ONE (1) TABLET(S) BY MOUTH EVERY MORNING. 0 03/31/2023 Active valACYclovir (Valtrex) 500 mg tabletIndicatio ns:POEMS syndrome Take 1 tablet (500 mg) by mouth daily. 90 tablet 3 06/20/2023 Active montelukast (SINGULAIR) 10 mg tablet TAKE ONE (1) TABLET(S) BY MOUTH DAILY IN THE MORNING. 0 03/31/2023 3 Discontinued dexAMETHasone (DECADRON) 4 mg tabletIndicatio ns:POEMS syndrome Take 20 mg (5 tablets) by mouth once weekly on the day after daratumumab. 20 tablet 0 06/21/2023 3 Discontinued(Ther apy completed) pantoprazole (PROTONIX) 40 mg EC tabletIndicatio ns:POEMS syndrome Take 1 tablet (40 mg) by mouth every morning before breakfast. 90 tablet 3 06/14/2023 3 Discontinued(Ther apy completed) baclofen (LIORESAL) 5 mg tab tabletIndicatio ns:Hiccoughs Take 1 tablet (5 mg) by mouth 3 (three) times a day. 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 Encounters Date Type Department Care Team Description 09/21/2023 10:30 AM CIGAR MAKING MACHINE SUPERVISOR Follow[facility]Up [facility] [address] [place] [address] Main [facility], 8th [place] [address] Favian Stacy MD Status post stem cell transplant; POEMS syndrome 09/21/2023 8:16 AM CIGAR MAKING MACHINE SUPERVISOR - 09/21/2023 11:59 PM CIGAR MAKING MACHINE SUPERVISOR Hospital Encounter Diagnostic [facility] Center [facility], [place] [address] Thuy Jimenez V, SLOOP CAPTAIN POEMS syndrome; Status post stem cell transplant Discharge Disposition: Home 09/21/2023 8:15 AM CIGAR MAKING MACHINE SUPERVISOR Hospital Encounter Diagnostic [facility], [place] [address] Barbara, Cyndi, SLOOP CAPTAIN POEMS syndrome; Status post stem cell transplant Discharge Disposition: Home 09/21/2023 Travel 09/20/2023 4:15 PM CIGAR MAKING MACHINE SUPERVISOR [facility] [address] [place] [address], 6th [place] [address] Dewayne Nowak MD POEMS syndrome 09/19/2023 Mobile Encounter [facility] [address] [place] [address], 6th [place] [address] Halie Verduzco APRN POEMS syndrome (Primary Dx) 08/16/2023 1:15 PM CDT [facility]Up [facility] [address] [place] [address], 6th [place] [address] Dewayne Nowak MD POEMS syndrome 08/16/2023 7:00 AM CDT Ancillary Procedure PET Imaging [address] [facility], 6th [place] [address] Dewayne Nowak MD POEMS syndrome 08/16/2023 Travel 08/15/2023 9:32 AM CDT - 08/15/2023 11:59 PM CDT Hospital Encounter [facility] [address] [place] [address], [place] [address] Shelley Jones PA POEMS syndrome Discharge Disposition: Home 08/15/2023 9:30 AM CDT - 08/15/2023 9:31 AM CDT Hospital Encounter [facility] [address] [place] [address], [place] [address] Shelley Jones PA POEMS syndrome Discharge Disposition: Home 08/09/2023 7:10 AM CDT - 08/09/2023 11:59 PM CDT Hospital Encounter Ambulatory Treatment Center - Main Building [address] [place] [address], 2nd [place] [address] Dewayne Nowak MD Panganiban, Ezra B, RN POEMS syndrome (Primary Dx) Discharge Disposition: Home 08/09/2023 Travel 08/04/2023 10:00 AM CDT Social Work [facility] Clinical Support Services [address] [place] [address], 8th [place] [address] Thuy Jimenez V, Radha Dunbar, FRONT OFFICE MEDICAL ASSISTANT POEMS syndrome 08/02/2023 8:00 AM CDT Infusion [facility] [address] [place] [address] [facility], Floor 6 [place] [address] Dewayne Nowak, Ratna Bedoya, RN POEMS syndrome (Primary Dx) 08/02/2023 Travel 07/26/2023 9:00 AM CDT Infusion [facility] [address] [place] [address] [facility], Floor 6 [place] [address] Dewayne Nowak, Hansa Betancur, RN POEMS syndrome (Primary Dx) 07/26/2023 Travel 07/22/2023 Orders Only [facility] [address] [place] [address], 8th Floor Elevator [address] [place] [phone] Favian Stacy MD POEMS syndrome (Primary Dx) 07/19/2023 11:26 AM CDT - 07/19/2023 11:59 PM CDT Hospital Encounter [facility] Treatment Center - Main Building [address] [place] [address], 10th [place] [address] Dewayne Nowak, Mario Jurado, RN POEMS syndrome (Primary Dx) Discharge Disposition: Home 07/19/2023 10:15 AM CDT [facility] [address] [place] [address], 6th [place] [address] Dewayne Nowak MD POEMS syndrome (Primary Dx) 07/19/2023 Travel 07/18/2023 10:30 AM CDT Follow-Up [facility] Main dg, 8th [place] [address] Favian Stacy MD POEMS syndrome (Primary Dx); Status post stem cell transplant 07/18/2023 9:10 AM CDT - 07/18/2023 11:59 PM CDT Hospital Encounter [facility] [address] [place] [address] Main [facility], [place] [address] Dewayne Nowak MD POEMS syndrome Discharge Disposition: Home 07/18/2023 9:00 AM CDT - 07/18/2023 9:09 AM CDT Hospital Encounter [facility] [address] [place] [address] Main [facility], Elevator A [place] [phone] Dewayne Nowak MD POEMS syndrome Discharge Disposition: Home 07/18/2023 Travel 07/12/2023 7:10 AM CDT - 07/12/2023 11:59 PM CDT Hospital Encounter [facility]ulatory Treatment Center - Main Building [address] [place] [address] Main [facility], 2nd [place] [address] Dewayne Nowak MD Reine, Sharon A, VICTORINA POEMS syndrome (Primary Dx) Discharge Disposition: Home 07/12/2023 6:53 AM CDT - 07/12/2023 7:09 AM CDT Hospital Encounter [facility] [address] [place] [address] Main [facility], Elevator A [place] [phone] Dewayne Nowak MD POEMS syndrome Discharge Disposition: Home 07/12/2023 Travel 07/07/2023 Orders Only [facility] [address] [place] [address] Main [facility], 6th Floor Elevator B [place] [phone] Dewayne Nowak MD Hiccoughs (Primary Dx) 07/05/2023 7:33 AM CDT - 07/05/2023 11:59 PM CDT Hospital Encounter [facility]ulatory Treatment [facility] - Main Building [address] [place] [address] Main dg, 2nd [place] [address] Dewayne Nowak MD Ventura, Clarivel T, RN POEMS syndrome (Primary Dx) Discharge Disposition: Home 07/05/2023 Travel 06/29/2023 Orders Only [facility] Main dg, 6th [place] [address] Halie Verduzco APRN 06/28/2023 8:12 AM CDT - 06/28/2023 11:59 PM CDT Hospital Encounter [facility]ulatory Treatment Center - Main Building [address] [place] [address], 2nd [place] [address] Dewayne Nowak MD Saberon, Baby L, RN POEMS syndrome (Primary Dx) Discharge Disposition: Home 06/28/2023 Travel 06/22/2023 8:30 AM CDT Infusion [facility] [address] [facility], 8th Floor Elev[place] [address] Halie Verduzco, Teodora Kim RN Adverse effect of antineoplastic and immunosuppressive drugs, initial encounter (Primary Dx); POEMS syndrome; Rash 06/22/2023 Travel 06/21/2023 12:00 PM CDT - 06/21/2023 11:59 PM CDT Hospital Encounter [facility] [address] [place] [address], [place] [address] Dewayne Nowak MD POEMS syndrome Discharge Disposition: Home 06/21/2023 10:28 AM CDT - 06/21/2023 11:59 AM CDT Hospital Encounter Cardiopulmonary Center - Pulmonology Lab [address] [place] [address], 6th [place] [address] Dewayne Nowak MD POEMS syndrome Discharge Disposition: Home 06/21/2023 10:25 AM CDT - 06/21/2023 10:27 AM CDT Hospital Encounter Cardiopulmonary Center [address] [place] [address] Main [facility], 6th [place] [address] Dewayne Nowak MD POEMS syndrome Discharge Disposition: Home 06/21/2023 Travel 06/21/2023 Orders Only [facility] Main [facility], 6th [place] [address] Halie Verduzco APRN POEMS syndrome (Primary Dx) 06/20/2023 Nurse Triage [facility] PHYSICIAN [address] [place] [id number] Anna Dyson RN 06/15/2023 Orders Only [facility] [address] [place] [address] Main [facility], 6th [place] [address] Heydi Berrios MD 06/10/2023 10:45 AM CDT Follow[facility]Up [facility] [address] [place] [address], 6th [place] [address] Dewayne Nowak MD POEMS syndrome (Primary Dx) 06/10/2023 9:45 AM CDT - 06/10/2023 11:59 PM CDT Hospital Encounter [facility] [address] [place] [address], [place] [address] Halie Verduzco APRN POEMS syndrome Discharge Disposition: Home 06/10/2023 Travel 06/10/2023 Orders Only [facility] [address] [place] [address], 6th [place] [address] Halie Verduzco APRN POEMS syndrome (Primary Dx) 05/24/2023 9:17 AM CDT - 05/24/2023 11:59 PM CDT Hospital Encounter Interventional Radiology [address] [facility], 4th [place] [address] Halie Verduzco APRN Lee, Stephen, MD POEMS syndrome Discharge Disposition: Home 05/24/2023 Travel 05/23/2023 9:36 AM CDT - 05/23/2023 11:59 PM CDT Hospital Encounter [facility] [address] [place] [address], 11th [place] [address] Halie Verduzco APRN Suarez, Carla Patricia, APRN POEMS syndrome Discharge Disposition: Home 05/23/2023 8:51 AM CDT - 05/23/2023 9:35 AM CDT Hospital Encounter [facility] [address] [facility] Main Bldg, [place] [address] Halie Verduzco APRN POEMS syndrome Discharge Disposition: Home 05/23/2023 Education Main [facility] 3rd [place] [address] Denilson Wells MA 05/23/2023 Travel 05/23/2023 Orders Only Main Interventional Radiology [address] [facility] B[facility]g, 3rd [place] [address] Adriana Pedro PA 05/20/2023 Orders Only Main Interventional Radiology [address] [facility], 3rd [place] [address] Melvina López PA-C 05/18/2023 Orders Only [facility] [address] [facility] Main Bldg, 6th [place] [address] Halie Verduzco APRN POEMS syndrome (Primary Dx) 05/11/2023 11:30 AM CDT Follow-Up [facility] [address] [facility] Main Bldg, 8th [place] [address] Favian Stacy MD POEMS syndrome (Primary Dx); Status post stem cell transplant 05/11/2023 7:30 AM CDT Ancillary Procedure PET Imaging [address] [facility], 6th [place] [address] Thuy Jimenez APRN Status post stem cell transplant; POEMS syndrome 05/11/2023 7:00 AM CDT Hospital Encounter [facility] [address] [facility] Main dg, [place] [address] Thuy Jimenez V, SLOOP CAPTAIN Status post stem cell transplant; POEMS syndrome Discharge Disposition: Home 05/11/2023 7:00 AM CDT Hospital Encounter [facility] [address] [place] [address], [place] [address] Tuhy Jimenez V, SLOOP CAPTAIN Status post stem cell transplant; POEMS syndrome Discharge Disposition: Home 05/11/2023 Travel 11/23/2022 3:30 PM CIGAR MAKING MACHINE SUPERVISOR Telemedicine [facility] [address] [place] [address], 6th [place] [address] Dewayne Nowak MD POEMS syndrome 11/16/2022 9:23 AM CIGAR MAKING MACHINE SUPERVISOR - 11/16/2022 11:59 PM CIGAR MAKING MACHINE SUPERVISOR Hospital Encounter [facility] [address] [place] [address], [place] [address] Dewayne Nowak MD POEMS syndrome Discharge Disposition: Home after 11/03/2022 Immunizations Name Administration Dates Next Due Pfizer SARS-CoV-2 Vaccination (Purple Cap) 01/11,12/20/2020 DTaP / IPV 04/02/2020,12/31/2019,10/03/2019 Hepatitis A 04/02/2020,10/03/2019 Hepatitis B 04/02/2020,12/31/2019,10/03/2019 Hib (PRP-OMP) 04/02/2020,12/31/2019,10/03/2019 Influenza Quadrivalent High Dose 10/05/2021 Influenza, Unspecified 09/29/2020,10/03/2019 Pneumococcal Conjugate 13-Valent 04/02/2020,12/15,10/03/2019 Pneumococcal Polysaccharide 09/29/2020 Surgical History Surgery Date Site/Laterality Comments MULTIPLE TOOTH EXTRACTIONS 10/17/2016 - 10/16/2017 Right Medical History Medical History Date Comments Neuropathy 2018 Family History Medical History Relation Name Comments -Genitourinary (Bladder, Kid manda, Prostate, Testicle) Brother 1 Richie mabry -Other cancer Brother 2 Richie abarcaza Gastric cancer Relation Name Status Comments Brother 1 Richie mabry Brother 2 Richie douglass clotilde Social History Tobacco Use Types Packs/Day Years Used Date Smoking Tobacco: Former Cigarettes 1 15 0 03/18/1984 - 06/27/2011 Smokeless Tobacco: Never Tobacco Cessation:Counseling Given: Not Answered Alcohol Use Standard Drinks/Week Comments No 0 (1 standard drink = 0.6 oz pur e alcohol) Sex and Gender Information Value Date Recorded Sex Assigned at Male 09/30/2020 8:21 AM CIGAR MAKING MACHINE SUPERVISOR Gender Identity Male 09/30/2020 8:21 AM CIGAR MAKING MACHINE SUPERVISOR Sexual Orientation Straight 09/30/2020 8: 21 AM CIGAR MAKING MACHINE SUPERVISOR Obstetrics History Last Filed Vital Signs Vital Sign Reading Time Taken Comments Blood Pressure 146/78 09/21/2023 9:54 AM CIGAR MAKING MACHINE SUPERVISOR Pulse 75 09/21/2023 9:54 AM CIGAR MAKING MACHINE SUPERVISOR Temperature 36.6 C (97.9 F) 09/21/2023 9:54 AM CS T Respiratory Rate 18 09/21/2023 9:54 AM CIGAR MAKING MACHINE SUPERVISOR Oxygen Saturation 99% 09/21/2023 9:54 AM CIGAR MAKING MACHINE SUPERVISOR Inhaled Oxygen Concentration - - Weight 93.3 kg (205 lb 11 oz) 09/21/2023 9:54 AM CIGAR MAKING MACHINE SUPERVISOR Height 172 cm (5' 7.72") 08/16/2023 6:49 AM CDT Body Mass Index 31.54 08/16/2023 6:49 AM CDT Plan of Treatment Upcoming Encounters Date Type Department Care Team Description 11/22/2023 3:00 PM CIGAR MAKING MACHINE SUPERVISOR Telemedicine [facility] [address] [place] [address], 6th [place] [address] Dewayne Nowak MD [address] [place] [id number] 01/20/2024 11:30 AM CDT Appointment [facility] [address] [place] [address], [facility] [address] Dewayne Nowak MD [address] [place] [address] 01/20/2024 11:45 AM CDT Appointment [facility] [address] [place] [address], [place] [address] Dewayne Nowak MD [address] [place] [address] 01/24/2024 11:30 AM CDT Follow-Up [facility] [address] [facility] Main Bldg, 6th Floor [address]vator [address] [place], [place] [id number] Dewayne Nowak MD [address] [place] [address] Health Maintenance Due Date Last Done Comments COVID-19 Vaccination (3 - Pf izer risk series) 02/08/2021 01/11/2021, 12/20/2020 Procedures Procedure Name Priority Date/Time Associated Diagnosis Comments HISTORICAL ABORH Routine 09/21/2023 9:31 AM CIGAR MAKING MACHINE SUPERVISOR Status post stem cell transplant POEMS syndrome TMP INTERPRETATION ANTIBODY IDENTIFICATION Routine 09/21/2023 8:36 AM CIGAR MAKING MACHINE SUPERVISOR Status post stem cell transplant POEMS syndrome ANTIBODY ID Routine 09/21/2023 8:36 AM CIGAR MAKING MACHINE SUPERVISOR Status post stem cell transplant POEMS syndrome ABID COMPLETE Routine 09/21/2023 8:36 AM CIGAR MAKING MACHINE SUPERVISOR Status post stem cell transplant POEMS syndrome TMP INTERP AUTO ANTIBODY SCREEN POSITIVE Routine 09/21/2023 8:36 AM CIGAR MAKING MACHINE SUPERVISOR Status post stem cell transplant POEMS syndrome FREE KAPPA/FREE LAMBDA RATIO Routine 09/21/2023 8:36 AM CIGAR MAKING MACHINE SUPERVISOR POEMS syndrome IMMUNOFIXATION ELECTROPHORESIS Routine 09/21/2023 8:36 AM CIGAR MAKING MACHINE SUPERVISOR POEMS syndrome PROTEIN ELECTROPHORESIS Routine 09/21/20 8:36 AM CIGAR MAKING MACHINE SUPERVISOR POEMS syndrome .CBC Routine 09/21/2023 8:36 AM CIGAR MAKING MACHINE SUPERVISOR POEMS syndrome URINE TOTAL PROTEIN 24 HOUR Routine 09/21/2023 8:36 AM CIGAR MAKING MACHINE SUPERVISOR POEMS syndrome TYPE AND SCREEN Routine 09/21/2023 8:36 AM CIGAR MAKING MACHINE SUPERVISOR Status post stem cell transplant POEMS syndrome TESTOSTERONE LEVEL Routine 09/21/2023 8: 36 AM CIGAR MAKING MACHINE SUPERVISOR POEMS syndrome HEMOGLOBIN A1C Routine 09/21/2023 8:36 AM CIGAR MAKING MACHINE SUPERVISOR POEMS syndrome THYROID STIMULATING HORMONE Routine 09/21/2023 8:36 AM CIGAR MAKING MACHINE SUPERVISOR POEMS syndrome FREE T3 Routine 09/21/2023 8:36 AM CIGAR MAKING MACHINE SUPERVISOR POEMS syndrome FREE THYROXINE Routine 09/21/2023 8:36 AM CIGAR MAKING MACHINE SUPERVISOR POEMS syndrome INTERLEUKIN-6 Routine 09/21/2023 8:36 AM CIGAR MAKING MACHINE SUPERVISOR POEMS syndrome VASCULAR ENDOTHELIAL GROWTH FCT Routine 09/21/2023 8:36 AM CIGAR MAKING MACHINE SUPERVISOR POEMS syndrome LACTATE DEHYDROGENASE Routine 09/21/2023 8:36 AM CIGAR MAKING MACHINE SUPERVISOR POEMS syndrome BETA 2 MICROGLOBULIN Routine 09/21/2023 8:36 AM CIGAR MAKING MACHINE SUPERVISOR POEMS syndrome SERUM PROTEIN ELECTROPHORESIS WITH MELISSA Routine 09/21/2023 8:36 AM CIGAR MAKING MACHINE SUPERVISOR POEMS syndrome FREE LAMBDA LIGHT CHAIN Routine 09/21/20 8:36 AM CIGAR MAKING MACHINE SUPERVISOR POEMS syndrome FREE KAPPA LIGHT CHAIN Routine 8:36 AM CIGAR MAKING MACHINE SUPERVISOR POEMS syndrome IMMUNOGLOBULIN M Routine 09/21/2023 8:36 AM CIGAR MAKING MACHINE SUPERVISOR POEMS syndrome IMMUNOGLOBULIN G Routine 09/21/2023 8:36 AM CIGAR MAKING MACHINE SUPERVISOR POEMS syndrome IMMUNOGLOBULIN A Routine 09/21/2023 8:36 AM CIGAR MAKING MACHINE SUPERVISOR POEMS syndrome URIC ACID Routine 09/21/2023 8:36 AM CIGAR MAKING MACHINE SUPERVISOR POEMS syndrome PHOSPHORUS LEVEL Routine 09/21/2023 8:36 AM CIGAR MAKING MACHINE SUPERVISOR POEMS syndrome MAGNESIUM LEVEL Routine 09/21/2023 8:36 AM CIGAR MAKING MACHINE SUPERVISOR POEMS syndrome COMPREHENSIVE METABOLIC PANEL Routine 09/21/2023 8:36 AM CIGAR MAKING MACHINE SUPERVISOR POEMS syndrome COMPLETE BLOOD COUNT W/ DIFFERENTIAL Routine 09/21/2023 8:36 AM CIGAR MAKING MACHINE SUPERVISOR POEMS syndrome PETCT WB SUBSEQUENT TREATMENT STRATEGY Routine 08/16/2023 8:33 AM CDT POEMS syndrome DIFFERENTIAL Routine 08/15/2023 9:46 AM CDT POEMS syndrome FREE KAPPA/FREE LAMBDA RATIO Routine 08/15/2023 9:46 AM CDT POEMS syndrome MDA CP BLSTFL Routine 08/15/2023 9:46 AM CDT POEMS syndrome URINE TOTAL PROTEIN 24 HOUR Routine 08/15/2023 9:46 AM CDT POEMS syndrome IMMUNOFIXATION ELECTROPHORESIS URINE Routine 08/15/2023 9:46 AM CDT POEMS syndrome PROTEIN ELECTROPHORESIS URINE Routine 08/15/2023 9:46 AM CDT POEMS syndrome IMMUNOFIXATION ELECTROPHORESIS Routine 08/15/2023 9:46 AM CDT POEMS syndrome PROTEIN ELECTROPHORESIS Routine 08/15/20 9:46 AM CDT POEMS syndrome PROTEIN ELECTROPHORESIS URINE WITH MELISSA Routine 08/15/2023 9:46 AM CDT POEMS syndrome .CBC Routine 08/15/2023 9:46 AM CDT POEMS syndrome VASCULAR ENDOTHELIAL GROWTH FCT Routine 08/15/2023 9:46 AM CDT POEMS syndrome LACTATE DEHYDROGENASE Routine 08/15/2023 9:46 AM CDT POEMS syndrome BETA 2 MICROGLOBULIN Routine 08/15/2023 9:46 AM CDT POEMS syndrome SERUM PROTEIN ELECTROPHORESIS WITH MELISSA Routine 08/15/2023 9:46 AM CDT POEMS syndrome FREE LAMBDA LIGHT CHAIN Routine 08/15/20 9:46 AM CDT POEMS syndrome FREE KAPPA LIGHT CHAIN Routine 9:46 AM CDT POEMS syndrome IMMUNOGLOBULIN M Routine 08/15/2023 9:46 AM CDT POEMS syndrome IMMUNOGLOBULIN G Routine 08/15/2023 9:46 AM CDT POEMS syndrome IMMUNOGLOBULIN A Routine 08/15/2023 9:46 AM CDT POEMS syndrome URIC ACID Routine 08/15/2023 9:46 AM CDT POEMS syndrome PHOSPHORUS LEVEL Routine 08/15/2023 9:46 AM CDT POEMS syndrome MAGNESIUM LEVEL Routine 08/15/2023 9:46 AM CDT POEMS syndrome COMPREHENSIVE METABOLIC PANEL Routine 08/15/2023 9:46 AM CDT POEMS syndrome COMPLETE BLOOD COUNT W/ DIFFERENTIAL Routine 08/15/2023 9:46 AM CDT POEMS syndrome DIFFERENTIAL Routine 08/09/2023 7:03 AM CDT POEMS syndrome MDA CP PLASMF Routine 08/09/2023 7:03 AM CDT POEMS syndrome MDA CP BLSTFL Routine 08/09/2023 7:03 AM CDT POEMS syndrome .CBC Routine 08/09/2023 7:03 AM CDT POEMS syndrome COMPLETE BLOOD COUNT W/ DIFFERENTIAL Routine 08/09/2023 7:03 AM CDT POEMS syndrome FRACTIONATED BILIRUBIN Routine 7:12 AM CDT POEMS syndrome TOTAL PROTEIN Routine 08/02/2023 7:12 AM CDT POEMS syndrome ASPARTATE AMINOTRANSFERASE Routine 08/02/2023 7:12 AM CDT POEMS syndrome ALANINE AMINOTRANSFERASE Routine 7:12 AM CDT POEMS syndrome ALKALINE PHOSPHATASE Routine 08/02/2023 7:12 AM CDT POEMS syndrome ALBUMIN LEVEL Routine 08/02/2023 7:12 AM CDT POEMS syndrome CALCIUM LEVEL Routine 08/02/2023 7:12 AM CDT POEMS syndrome .GLOMERULAR FILTRATION RATE Routine 08/02/2023 7:12 AM CDT POEMS syndrome SERUM CREATININE Routine 08/02/2023 7:12 AM CDT POEMS syndrome ELECTROLYTE PANEL Routine 08/02/2023 7:1 2 AM CDT POEMS syndrome BLOOD UREA NITROGEN Routine 08/02/2023 7 :12 AM CDT POEMS syndrome GLUCOSE LEVEL Routine 08/02/2023 7:12 AM CDT POEMS syndrome DIFFERENTIAL Routine 08/02/2023 7:12 AM CDT POEMS syndrome .CBC Routine 08/02/2023 7:12 AM CDT POEMS syndrome MAGNESIUM LEVEL Routine 08/02/2023 7:12 AM CDT POEMS syndrome COMPREHENSIVE METABOLIC PANEL Routine 08/02/2023 7:12 AM CDT POEMS syndrome COMPLETE BLOOD COUNT W/ DIFFERENTIAL Routine 08/02/2023 7:12 AM CDT POEMS syndrome HIV 1 RNA PCR QUANTITATIVE Routine 07/26/2023 10:36 AM CDT TMP RPR PATH INTERP Routine 07/26/2023 8 :26 AM CDT HIV 1/2 ANTIGEN/ANTIBODY, FOURTH GEN W/RFL Routine 07/26/2023 8:26 AM CDT HTLV I/II AB SCREEN WITH CONFIRM Routine 07/26/2023 8:26 AM CDT POEMS syndrome RAPID PLASMA REAGIN (RPR) Routine 07/26/2023 8:26 AM CDT POEMS syndrome HEPATITIS C VIRUS ANTIBODY Routine 07/26/2023 8:26 AM CDT POEMS syndrome HEPATITIS B CORE ANTIBODY Routine 07/26/2023 8:26 AM CDT POEMS syndrome HEPATITIS B SURFACE ANTIGEN Routine 07/26/2023 8:26 AM CDT POEMS syndrome FRACTIONATED BILIRUBIN Routine 8:26 AM CDT POEMS syndrome TOTAL PROTEIN Routine 07/26/2023 8:26 AM CDT POEMS syndrome ASPARTATE AMINOTRANSFERASE Routine 07/26/2023 8:26 AM CDT POEMS syndrome ALANINE AMINOTRANSFERASE Routine 8:26 AM CDT POEMS syndrome ALKALINE PHOSPHATASE Routine 07/26/2023 8:26 AM CDT POEMS syndrome ALBUMIN LEVEL Routine 07/26/2023 8:26 AM CDT POEMS syndrome CALCIUM LEVEL Routine 07/26/2023 8:26 AM CDT POEMS syndrome .GLOMERULAR FILTRATION RATE Routine 07/26/2023 8:26 AM CDT POEMS syndrome SERUM CREATININE Routine 07/26/2023 8:26 AM CDT POEMS syndrome ELECTROLYTE PANEL Routine 07/26/2023 8:2 6 AM CDT POEMS syndrome BLOOD UREA NITROGEN Routine 07/26/2023 8 :26 AM CDT POEMS syndrome GLUCOSE LEVEL Routine 07/26/2023 8:26 AM CDT POEMS syndrome DIFFERENTIAL Routine 07/26/2023 8:26 AM CDT POEMS syndrome .CBC Routine 07/26/2023 8:26 AM CDT POEMS syndrome MAGNESIUM LEVEL Routine 07/26/2023 8:26 AM CDT POEMS syndrome COMPREHENSIVE METABOLIC PANEL Routine 07/26/2023 8:26 AM CDT POEMS syndrome COMPLETE BLOOD COUNT W/ DIFFERENTIAL Routine 07/26/2023 8:26 AM CDT POEMS syndrome CMV ANTIBODY IGG + IGM - PATHOLOGIST REVIEW Routine 07/26/2023 8:26 AM CDT CMV ANTIBODY IGG + IGM Routine 8:26 AM CDT POEMS syndrome INFECTIOUS DISEASE GROUPING Routine 07/26/2023 8:[address] CRAWFORD MELISSA PATH REVIEW Routine 023 9:28 AM CDT PROT ELEC PATH REVIEW Routine 07/18/2023 9:28 AM CDT FREE KAPPA/FREE LAMBDA RATIO Routine 07/18/2023 9:28 AM CDT FRACTIONATED BILIRUBIN Routine 9:28 AM CDT POEMS syndrome TOTAL PROTEIN Routine 07/18/2023 9:28 AM CDT POEMS syndrome ASPARTATE AMINOTRANSFERASE Routine 07/18/2023 9:28 AM CDT POEMS syndrome ALANINE AMINOTRANSFERASE Routine 023 9:28 AM CDT POEMS syndrome ALKALINE PHOSPHATASE Routine 07/18/2023 9:28 AM CDT POEMS syndrome ALBUMIN LEVEL Routine 07/18/2023 9:28 AM CDT POEMS syndrome CALCIUM LEVEL Routine 07/18/2023 9:28 AM CDT POEMS syndrome .GLOMERULAR FILTRATION RATE Routine 07/18/2023 9:28 AM CDT POEMS syndrome SERUM CREATININE Routine 07/18/2023 9:28 AM CDT POEMS syndrome ELECTROLYTE PANEL Routine 07/18/2023 9:2 8 AM CDT POEMS syndrome BLOOD UREA NITROGEN Routine 07/18/2023 9 :28 AM CDT POEMS syndrome GLUCOSE LEVEL Routine 07/18/2023 9:28 AM CDT POEMS syndrome DIFFERENTIAL Routine 07/18/2023 9:28 AM CDT POEMS syndrome .CBC Routine 07/18/2023 9:28 AM CDT POEMS syndrome VASCULAR ENDOTHELIAL GROWTH FCT Routine 07/18/2023 9:28 AM CDT POEMS syndrome LACTATE DEHYDROGENASE Routine 07/18/2023 9:28 AM CDT POEMS syndrome BETA 2 MICROGLOBULIN Routine 07/18/2023 9:28 AM CDT POEMS syndrome SERUM PROTEIN ELECTROPHORESIS WITH MELISSA Routine 07/18/2023 9:28 AM CDT POEMS syndrome PROTEIN ELECTROPHORESIS Routine 07/18/20 9:28 AM CDT POEMS syndrome FREE LAMBDA LIGHT CHAIN Routine 07/18/20 9:28 AM CDT POEMS syndrome FREE KAPPA LIGHT CHAIN Routine 9:28 AM CDT POEMS syndrome IMMUNOGLOBULIN M Routine 07/18/2023 9:28 AM CDT POEMS syndrome IMMUNOGLOBULIN G Routine 07/18/2023 9:28 AM CDT POEMS syndrome IMMUNOGLOBULIN A Routine 07/18/2023 9:28 AM CDT POEMS syndrome URIC ACID Routine 07/18/2023 9:28 AM CDT POEMS syndrome PHOSPHORUS LEVEL Routine 07/18/2023 9:28 AM CDT POEMS syndrome MAGNESIUM LEVEL Routine 07/18/2023 9:28 AM CDT POEMS syndrome COMPREHENSIVE METABOLIC PANEL Routine 07/18/2023 9:28 AM CDT POEMS syndrome COMPLETE BLOOD COUNT W/ DIFFERENTIAL Routine 07/18/2023 9:28 AM CDT POEMS syndrome .DR. ARCHIBALD UIFE PATH REVIEW Routine 07/18/2023 4:[address] ARCHIBALD U PROT ELEC PATH REVIEW Routine 07/18/2023 4:00 AM CDT .TOTAL VOLUME Routine 07/18/2023 4:00 AM CDT URINE TOTAL PROTEIN 24 HOUR Routine 07/18/2023 4:00 AM CDT PROTEIN ELECTROPHORESIS URINE WITH MELISSA Routine 07/18/2023 4:00 AM CDT POEMS syndrome PROTEIN ELECTROPHORESIS URINE Routine 07/18/2023 4:00 AM CDT POEMS syndrome DIFFERENTIAL Routine 07/12/2023 7:05 AM CDT POEMS syndrome .CBC Routine 07/12/2023 7:05 AM CDT POEMS syndrome COMPLETE BLOOD COUNT W/ DIFFERENTIAL Routine 07/12/2023 7:05 AM CDT POEMS syndrome BLOOD UREA NITROGEN Routine 07/05/2023 7 :24 AM CDT POEMS syndrome FRACTIONATED BILIRUBIN Routine 7:24 AM CDT POEMS syndrome TOTAL PROTEIN Routine 07/05/2023 7:24 AM CDT POEMS syndrome ASPARTATE AMINOTRANSFERASE Routine 07/05/2023 7:24 AM CDT POEMS syndrome ALANINE AMINOTRANSFERASE Routine 023 7:24 AM CDT POEMS syndrome ALKALINE PHOSPHATASE Routine 07/05/2023 7:24 AM CDT POEMS syndrome ALBUMIN LEVEL Routine 07/05/2023 7:24 AM CDT POEMS syndrome CALCIUM LEVEL Routine 07/05/2023 7:24 AM CDT POEMS syndrome .GLOMERULAR FILTRATION RATE Routine 07/05/2023 7:24 AM CDT POEMS syndrome SERUM CREATININE Routine 07/05/2023 7:24 AM CDT POEMS syndrome ELECTROLYTE PANEL Routine 07/05/2023 7:2 4 AM CDT POEMS syndrome GLUCOSE LEVEL Routine 07/05/2023 7:24 AM CDT POEMS syndrome DIFFERENTIAL Routine 07/05/2023 7:24 AM CDT POEMS syndrome .CBC Routine 07/05/2023 7:24 AM CDT POEMS syndrome MAGNESIUM LEVEL Routine 07/05/2023 7:24 AM CDT POEMS syndrome COMPREHENSIVE METABOLIC PANEL Routine 07/05/2023 7:24 AM CDT POEMS syndrome COMPLETE BLOOD COUNT W/ DIFFERENTIAL Routine 07/05/2023 7:24 AM CDT POEMS syndrome FRACTIONATED BILIRUBIN Routine 8:03 AM CDT POEMS syndrome TOTAL PROTEIN Routine 06/28/2023 8:03 AM CDT POEMS syndrome ASPARTATE AMINOTRANSFERASE Routine 06/28/2023 8:03 AM CDT POEMS syndrome ALANINE AMINOTRANSFERASE Routine 023 8:03 AM CDT POEMS syndrome ALKALINE PHOSPHATASE Routine 06/28/2023 8:03 AM CDT POEMS syndrome ALBUMIN LEVEL Routine 06/28/2023 8:03 AM CDT POEMS syndrome CALCIUM LEVEL Routine 06/28/2023 8:03 AM CDT POEMS syndrome .GLOMERULAR FILTRATION RATE Routine 06/28/2023 8:03 AM CDT POEMS syndrome SERUM CREATININE Routine 06/28/2023 8:03 AM CDT POEMS syndrome ELECTROLYTE PANEL Routine 06/28/2023 8:0 3 AM CDT POEMS syndrome BLOOD UREA NITROGEN Routine 06/28/2023 8 :03 AM CDT POEMS syndrome GLUCOSE LEVEL Routine 06/28/2023 8:03 AM CDT POEMS syndrome DIFFERENTIAL Routine 06/28/2023 8:03 AM CDT POEMS syndrome .CBC Routine 06/28/2023 8:03 AM CDT POEMS syndrome MAGNESIUM LEVEL Routine 06/28/2023 8:03 AM CDT POEMS syndrome COMPREHENSIVE METABOLIC PANEL Routine 06/28/2023 8:03 AM CDT POEMS syndrome COMPLETE BLOOD COUNT W/ DIFFERENTIAL Routine 06/28/2023 8:03 AM CDT POEMS syndrome TMP INTERPRETATION RBC PHENOTYPE BY MOLECULAR METHODS Routine 06/21/2023 12:31 PM CDT TMP INTERPRETATION ANTIBODY SCREEN NEGATIVE Routine 06/21/2023 12:31 PM CDT CLOT EXPIRATION DATE Routine 06/21/2023 12:31 PM CDT FRACTIONATED BILIRUBIN Routine 12:31 PM CDT POEMS syndrome TOTAL PROTEIN Routine 06/21/2023 12:31 PM CDT POEMS syndrome ASPARTATE AMINOTRANSFERASE Routine 06/21/2023 12:31 PM CDT POEMS syndrome ALANINE AMINOTRANSFERASE Routine 023 12:31 PM CDT POEMS syndrome ALKALINE PHOSPHATASE Routine 06/21/2023 12:31 PM CDT POEMS syndrome ALBUMIN LEVEL Routine 06/21/2023 12:31 PM CDT POEMS syndrome CALCIUM LEVEL Routine 06/21/2023 12:31 PM CDT POEMS syndrome .GLOMERULAR FILTRATION RATE Routine 06/21/2023 12:31 PM CDT POEMS syndrome SERUM CREATININE Routine 06/21/2023 12:3 1 PM CDT POEMS syndrome ELECTROLYTE PANEL Routine 06/21/2023 12: 31 PM CDT POEMS syndrome BLOOD UREA NITROGEN Routine 06/21/2023 1 2:31 PM CDT POEMS syndrome GLUCOSE LEVEL Routine 06/21/2023 12:31 PM CDT POEMS syndrome DIFFERENTIAL Routine 06/21/2023 12:31 PM CDT POEMS syndrome .CBC Routine 06/21/2023 12:31 PM CDT POEMS syndrome ANTIBODY SCREEN Routine 06/21/2023 12:31 PM CDT POEMS syndrome ABORH Routine 06/21/2023 12:31 PM CDT POEMS syndrome MAGNESIUM LEVEL Routine 06/21/2023 12:31 PM CDT POEMS syndrome COMPREHENSIVE METABOLIC PANEL Routine 06/21/2023 12:31 PM CDT POEMS syndrome COMPLETE BLOOD COUNT W/ DIFFERENTIAL Routine 06/21/2023 12:31 PM CDT POEMS syndrome TYPE AND SCREEN Routine 06/21/2023 12:31 PM CDT POEMS syndrome RBC ANTIGENS BY MOLECULAR METHODS Routine 06/21/2023 12:31 PM CDT POEMS syndrome SPIROMETRY W/O DILATORS, DLCO AND BODY PLETHSMOGRAPHIC LUNG VOLUMES Routine 06/21/2023 12:00 PM CDT POEMS syndrome ECHOCARDIOGRAM 2D COMPLETE Routine 06/21/2023 11:28 [address] CDT POEMS syndrome DR[address] PRAKASH MELISSA PATHE REVIEW Routine 06/10/20 10:[address] PRAKASH PROT ELECTROPHORESIS PATH REVIEW Routine 06/10/2023 10:06 AM CDT FREE KAPPA/FREE LAMBDA RATIO Routine 06/10/2023 10:06 AM CDT INTERLEUKIN-6 FINAL REPORT Routine 06/10/2023 10:06 AM CDT FRACTIONATED BILIRUBIN Routine 10:06 AM CDT POEMS syndrome TOTAL PROTEIN Routine 06/10/2023 10:06 AM CDT POEMS syndrome ASPARTATE AMINOTRANSFERASE Routine 06/10/2023 10:06 AM CDT POEMS syndrome ALANINE AMINOTRANSFERASE Routine 023 10:06 AM CDT POEMS syndrome ALKALINE PHOSPHATASE Routine 06/10/2023 10:06 AM CDT POEMS syndrome ALBUMIN LEVEL Routine 06/10/2023 10:06 AM CDT POEMS syndrome CALCIUM LEVEL Routine 06/10/2023 10:06 AM CDT POEMS syndrome .GLOMERULAR FILTRATION RATE Routine 06/10/2023 10:06 AM CDT POEMS syndrome SERUM CREATININE Routine 06/10/2023 10:0 6 AM CDT POEMS syndrome ELECTROLYTE PANEL Routine 06/10/2023 10: 06 AM CDT POEMS syndrome BLOOD UREA NITROGEN Routine 06/10/2023 1 0:06 AM CDT POEMS syndrome GLUCOSE LEVEL Routine 06/10/2023 10:06 AM CDT POEMS syndrome DIFFERENTIAL Routine 06/10/2023 10:06 AM CDT POEMS syndrome .CBC Routine 06/10/2023 10:06 AM CDT POEMS syndrome INTERLEUKIN-6 Routine 06/10/2023 10:06 AM CDT POEMS syndrome VASCULAR ENDOTHELIAL GROWTH FCT Routine 06/10/2023 10:06 AM CDT POEMS syndrome LACTATE DEHYDROGENASE Routine 06/10/2023 10:06 AM CDT POEMS syndrome BETA 2 MICROGLOBULIN Routine 06/10/2023 10:06 AM CDT POEMS syndrome SERUM PROTEIN ELECTROPHORESIS WITH MELISSA Routine 06/10/2023 10:06 AM CDT POEMS syndrome PROTEIN ELECTROPHORESIS Routine 06/10/20 10:06 AM CDT POEMS syndrome FREE LAMBDA LIGHT CHAIN Routine 06/10/20 10:06 AM CDT POEMS syndrome FREE KAPPA LIGHT CHAIN Routine 10:06 AM CDT POEMS syndrome IMMUNOGLOBULIN M Routine 06/10/2023 10:0 6 AM CDT POEMS syndrome IMMUNOGLOBULIN G Routine 06/10/2023 10:0 6 AM CDT POEMS syndrome IMMUNOGLOBULIN A Routine 06/10/2023 10:0 6 AM CDT POEMS syndrome URIC ACID Routine 06/10/2023 10:06 AM CDT POEMS syndrome PHOSPHORUS LEVEL Routine 06/10/2023 10:0 6 AM CDT POEMS syndrome MAGNESIUM LEVEL Routine 06/10/2023 10:06 AM CDT POEMS syndrome COMPREHENSIVE METABOLIC PANEL Routine 06/10/2023 10:06 AM CDT POEMS syndrome COMPLETE BLOOD COUNT W/ DIFFERENTIAL Routine 06/10/2023 10:06 AM CDT POEMS syndrome IR US GUIDED BIOPSY LYMPH NODE 60 Routine 05/24/2023 11:28 AM CDT POEMS syndrome FUNGAL CULTURE W/ SMEAR Routine 05/24/20 11:14 AM CDT TISSUE/FNA CULTURE W/ GRAM STAIN Routine 05/24/2023 11:14 AM CDT ANAEROBIC CULTURE Routine 05/24/2023 11: 14 AM CDT AFB CULTURE W/ SMEAR Routine 05/24/2023 11:14 AM CDT CYTOLOGY IMAGE-GUIDED FNA INTERPRETATION Routine 05/24/2023 10:53 AM CDT POEMS syndrome PATHOLOGY BIOPSY INTERPRETATION Routine 05/24/2023 10:53 AM CDT POEMS syndrome HP FC MRD MYELOMA INTERPRETATION AND REPORT Routine 05/24/2023 10:53 AM CDT HP FC FLOW CYTOMETRY BLOOD COLLECTION Routine 05/24/2023 10:53 AM CDT HP CG MYELOMA FISH TESTS INTERPRETATION AND REPORT Routine 05/24/2023 9:16 AM CDT HP CYTOGENETICS BLOOD COLLECTION Routine 05/24/2023 9:16 AM CDT HEMATOPATHOLOGY BONE MARROW DIFFERENTIAL Routine 05/23/2023 10:48 AM CDT POEMS syndrome HEMATOPATHOLOGY BONE MARROW INTERPRETATION Routine 05/23/2023 10:48 AM CDT POEMS syndrome HP CG MYELOMA FISH TESTS INTERPRETATION AND REPORT Routine 05/23/2023 10:41 AM CDT HP CG CHROMOSOME ANALYSIS INTERPRETATION AND REPORT Routine 05/23/2023 10:41 AM CDT HP FC MRD MYELOMA INTERPRETATION AND REPORT Routine 05/23/2023 10:41 AM CDT HP CYTOGENETICS BLOOD COLLECTION Routine 05/23/2023 10:41 AM CDT HP MOLECULAR BLOOD COLLECTION Routine 05/23/2023 10:41 AM CDT HP FC FLOW CYTOMETRY BLOOD COLLECTION Routine 05/23/2023 10:41 AM CDT NASIM TOMPKINS TP53 COLLECTION, NONBLOOD Routine 05/23/2023 10:41 AM CDT POEMS syndrome NASIM TOMPKINS KRAS MUTATION ANALYSIS COLLECTION, NONBLOOD Routine 05/23/2023 10:41 AM CDT POEMS syndrome NASIM TOMPKINS BRAF MUTATION ANALYSIS COLLECTION, NONBLOOD Routine 05/23/2023 10:41 AM CDT POEMS syndrome HP CG CHROMOSOME ANALYSIS COLLECTION, NONBLOOD Routine 05/23/2023 10:41 AM CDT POEMS syndrome HP CG MYELOMA FISH PANEL COLLECTION, NONBLOOD Routine 05/23/2023 10:41 AM CDT POEMS syndrome HP FC MYELOMA COLLECTION, NONBLOOD Routine 05/23/2023 10:41 AM CDT POEMS syndrome GA DIAGNOSTIC BONE MARROW BIOPSIES & ASPIRATIONS Routine 05/23/2023 10:20 AM CDT POEMS syndrome INTERLEUKIN-6 FINAL REPORT Routine 05/23/2023 9:07 AM CDT DIFFERENTIAL Routine 05/23/2023 9:07 AM CDT POEMS syndrome .CBC Routine 05/23/2023 9:07 AM CDT POEMS syndrome PROTHROMBIN TIME Routine 05/23/2023 9:07 AM CDT COMPLETE BLOOD COUNT W/ DIFFERENTIAL Routine 05/23/2023 9:07 AM CDT POEMS syndrome INTERLEUKIN-6 Routine 05/23/2023 9:07 AM CDT POEMS syndrome VASCULAR ENDOTHELIAL GROWTH FCT Routine 05/23/2023 9:07 AM CDT POEMS syndrome PERIPHERAL SMR FOR BONE MARROW Routine 05/23/2023 9:07 AM CDT POEMS syndrome PETCT SUBSEQUENT TREATMENT STRATEGY Routine 05/11/2023 9:43 AM CDT Status post stem cell transplant POEMS syndrome .DR. ARCHIBALD MELISSA PATH REVIEW Routine 05/11/2023 7:[address] ARCHIBALD PROT ELEC PATH REVIEW Routine 05/11/2023 7:21 AM CDT CLOT EXPIRATION DATE Routine 05/11/2023 7:21 AM CDT TMP INTERPRETATION ANTIBODY SCREEN NEGATIVE Routine 05/11/2023 7:21 AM CDT FREE KAPPA/FREE LAMBDA RATIO Routine 05/11/2023 7:21 AM CDT ANTIBODY SCREEN Routine 05/11/2023 7:21 AM CDT Status post stem cell transplant POEMS syndrome ABORH Routine 05/11/2023 7:21 AM CDT Status post stem cell transplant POEMS syndrome FRACTIONATED BILIRUBIN Routine 7:21 AM CDT Status post stem cell transplant POEMS syndrome TOTAL PROTEIN Routine 05/11/2023 7:21 AM CDT Status post stem cell transplant POEMS syndrome ASPARTATE AMINOTRANSFERASE Routine 05/11/2023 7:21 AM CDT Status post stem cell transplant POEMS syndrome ALANINE AMINOTRANSFERASE Routine 023 7:21 AM CDT Status post stem cell transplant POEMS syndrome ALKALINE PHOSPHATASE Routine 05/11/2023 7:21 AM CDT Status post stem cell transplant POEMS syndrome ALBUMIN LEVEL Routine 05/11/2023 7:21 AM CDT Status post stem cell transplant POEMS syndrome CALCIUM LEVEL Routine 05/11/2023 7:21 AM CDT Status post stem cell transplant POEMS syndrome .GLOMERULAR FILTRATION RATE Routine 05/11/2023 7:21 AM CDT Status post stem cell transplant POEMS syndrome SERUM CREATININE Routine 05/11/2023 7:21 AM CDT Status post stem cell transplant POEMS syndrome ELECTROLYTE PANEL Routine 05/11/2023 7:2 1 AM CDT Status post stem cell transplant POEMS syndrome BLOOD UREA NITROGEN Routine 05/11/2023 7 :21 AM CDT Status post stem cell transplant POEMS syndrome GLUCOSE LEVEL Routine 05/11/2023 7:21 AM CDT Status post stem cell transplant POEMS syndrome DIFFERENTIAL Routine 05/11/2023 7:21 AM CDT Status post stem cell transplant POEMS syndrome .CBC Routine 05/11/2023 7:21 AM CDT Status post stem cell transplant POEMS syndrome VASCULAR ENDOTHELIAL GROWTH FCT Routine 05/11/2023 7:21 AM CDT Status post stem cell transplant POEMS syndrome SERUM PROTEIN ELECTROPHORESIS WITH MELISSA Routine 05/11/2023 7:21 AM CDT Status post stem cell transplant POEMS syndrome PROTEIN ELECTROPHORESIS Routine 05/11/20 7:21 AM CDT Status post stem cell transplant POEMS syndrome FREE LAMBDA LIGHT CHAIN Routine 05/11/20 7:21 AM CDT Status post stem cell transplant POEMS syndrome FREE KAPPA LIGHT CHAIN Routine 7:21 AM CDT Status post stem cell transplant POEMS syndrome IMMUNOGLOBULIN M Routine 05/11/2023 7:21 AM CDT Status post stem cell transplant POEMS syndrome IMMUNOGLOBULIN G Routine 05/11/2023 7:21 AM CDT Status post stem cell transplant POEMS syndrome IMMUNOGLOBULIN A Routine 05/11/2023 7:21 AM CDT Status post stem cell transplant POEMS syndrome BETA 2 MICROGLOBULIN Routine 05/11/2023 7:21 AM CDT Status post stem cell transplant POEMS syndrome MAGNESIUM LEVEL Routine 05/11/2023 7:21 AM CDT Status post stem cell transplant POEMS syndrome LACTATE DEHYDROGENASE Routine 05/11/2023 7:21 AM CDT Status post stem cell transplant POEMS syndrome URIC ACID Routine 05/11/2023 7:21 AM CDT Status post stem cell transplant POEMS syndrome PHOSPHORUS LEVEL Routine 05/11/2023 7:21 AM CDT Status post stem cell transplant POEMS syndrome COMPREHENSIVE METABOLIC PANEL Routine 05/11/2023 7:21 AM CDT Status post stem cell transplant POEMS syndrome TYPE AND SCREEN Routine 05/11/2023 7:21 AM CDT Status post stem cell transplant POEMS syndrome COMPLETE BLOOD COUNT W/ DIFFERENTIAL Routine 05/11/2023 7:21 AM CDT Status post stem cell transplant POEMS syndrome .DR. ARCHIBALD UIFE PATH REVIEW Routine 05/11/2023 6:[address] ARCHIBALD U PROT ELEC PATH REVIEW Routine 05/11/2023 6:00 AM CDT .TOTAL VOLUME Routine 05/11/2023 6:00 AM CDT URINE TOTAL PROTEIN 24 HOUR Routine 05/11/2023 6:00 AM CDT PROTEIN ELECTROPHORESIS URINE Routine 05/11/2023 6:00 AM CDT Status post stem cell transplant POEMS syndrome PROTEIN ELECTROPHORESIS URINE WITH MELISSA Routine 05/11/2023 6:00 AM CDT Status post stem cell transplant POEMS syndrome DR. CRAWFORD MELISSA PATH REVIEW Routine 023 9:34 AM CIGAR MAKING MACHINE SUPERVISOR PROT ELEC PATH REVIEW Routine 11/16/2022 9:34 AM CIGAR MAKING MACHINE SUPERVISOR FREE KAPPA/FREE LAMBDA RATIO Routine 11/16/2022 9:34 AM CIGAR MAKING MACHINE SUPERVISOR INTERLEUKIN-6 FINAL REPORT Routine 11/16/2022 9:34 AM CIGAR MAKING MACHINE SUPERVISOR FRACTIONATED BILIRUBIN Routine 9:34 AM CIGAR MAKING MACHINE SUPERVISOR POEMS syndrome TOTAL PROTEIN Routine 11/16/2022 9:34 AM CIGAR MAKING MACHINE SUPERVISOR POEMS syndrome ASPARTATE AMINOTRANSFERASE Routine 11/16/2022 9:34 AM CIGAR MAKING MACHINE SUPERVISOR POEMS syndrome ALANINE AMINOTRANSFERASE Routine 023 9:34 AM CIGAR MAKING MACHINE SUPERVISOR POEMS syndrome ALKALINE PHOSPHATASE Routine 11/16/2022 9:34 AM CIGAR MAKING MACHINE SUPERVISOR POEMS syndrome ALBUMIN LEVEL Routine 11/16/2022 9:34 AM CIGAR MAKING MACHINE SUPERVISOR POEMS syndrome CALCIUM LEVEL Routine 11/16/2022 9:34 AM CIGAR MAKING MACHINE SUPERVISOR POEMS syndrome .GLOMERULAR FILTRATION RATE Routine 11/16/2022 9:34 AM CIGAR MAKING MACHINE SUPERVISOR POEMS syndrome SERUM CREATININE Routine 11/16/2022 9:34 AM CIGAR MAKING MACHINE SUPERVISOR POEMS syndrome ELECTROLYTE PANEL Routine 11/16/2022 9:3 4 AM CIGAR MAKING MACHINE SUPERVISOR POEMS syndrome BLOOD UREA NITROGEN Routine 11/16/2022 9 :34 AM CIGAR MAKING MACHINE SUPERVISOR POEMS syndrome GLUCOSE LEVEL Routine 11/16/2022 9:34 AM CIGAR MAKING MACHINE SUPERVISOR POEMS syndrome DIFFERENTIAL Routine 11/16/2022 9:34 AM CIGAR MAKING MACHINE SUPERVISOR POEMS syndrome .CBC Routine 11/16/2022 9:34 AM CIGAR MAKING MACHINE SUPERVISOR POEMS syndrome INTERLEUKIN-6 Routine 11/16/2022 9:34 AM CIGAR MAKING MACHINE SUPERVISOR POEMS syndrome VASCULAR ENDOTHELIAL GROWTH FCT Routine 11/16/2022 9:34 AM CIGAR MAKING MACHINE SUPERVISOR POEMS syndrome LACTATE DEHYDROGENASE Routine 11/16/2022 9:34 AM CIGAR MAKING MACHINE SUPERVISOR POEMS syndrome BETA 2 MICROGLOBULIN Routine 11/16/2022 9:34 AM CIGAR MAKING MACHINE SUPERVISOR POEMS syndrome SERUM PROTEIN ELECTROPHORESIS WITH MELISSA Routine 11/16/2022 9:34 AM CIGAR MAKING MACHINE SUPERVISOR POEMS syndrome PROTEIN ELECTROPHORESIS Routine 11/16/19 9:34 AM CIGAR MAKING MACHINE SUPERVISOR POEMS syndrome FREE LAMBDA LIGHT CHAIN Routine 11/16/19 9:34 AM CIGAR MAKING MACHINE SUPERVISOR POEMS syndrome FREE KAPPA LIGHT CHAIN Routine 9:34 AM CIGAR MAKING MACHINE SUPERVISOR POEMS syndrome IMMUNOGLOBULIN M Routine 11/16/2022 9:34 AM CIGAR MAKING MACHINE SUPERVISOR POEMS syndrome IMMUNOGLOBULIN G Routine 11/16/2022 9:34 AM CIGAR MAKING MACHINE SUPERVISOR POEMS syndrome IMMUNOGLOBULIN A Routine 11/16/2022 9:34 AM CIGAR MAKING MACHINE SUPERVISOR POEMS syndrome URIC ACID Routine 11/16/2022 9:34 AM CIGAR MAKING MACHINE SUPERVISOR POEMS syndrome PHOSPHORUS LEVEL Routine 11/16/2022 9:34 AM CIGAR MAKING MACHINE SUPERVISOR POEMS syndrome MAGNESIUM LEVEL Routine 11/16/2022 9:34 AM CIGAR MAKING MACHINE SUPERVISOR POEMS syndrome COMPREHENSIVE METABOLIC PANEL Routine 11/16/2022 9:34 AM CIGAR MAKING MACHINE SUPERVISOR POEMS syndrome COMPLETE BLOOD COUNT W/ DIFFERENTIAL Routine 11/16/2022 9:34 AM CIGAR MAKING MACHINE SUPERVISOR POEMS syndrome after 11/03/2022 Results * Historical ABORh (09/21/2023 9:31 AM CIGAR MAKING MACHINE SUPERVISOR) ABORh O POS 09/21/2023 9:32 AM CIGAR MAKING MACHINE SUPERVISOR [facility] Blood Peripheral blood specimen / Unknown 09/21/2023 9:31 AM CIGAR MAKING MACHINE SUPERVISOR 09/21/2023 9:31 AM CIGAR MAKING MACHINE SUPERVISOR Thuy Odonnell APRN BLOOD BANK TEST OR DERABLES [facility] - TRANSFUSION SERVICES [facility] [id number] [place] [address] * ABID Complete (09/21/2023 8:36 AM CIGAR MAKING MACHINE SUPERVISOR) ABID Complete Yes 09/21/2023 12:18 PM CIGAR MAKING MACHINE SUPERVISOR [facility] - TRANSFUSION SERVICES Blood Peripheral blood specimen / Unknown Venipuncture / Unknown 09/21/2023 8:36 AM CIGAR MAKING MACHINE SUPERVISOR 09/21/2023 8:42 AM CIGAR MAKING MACHINE SUPERVISOR Thuy Odonnell APRN BLOOD BANK TEST OR DERABLES Performing Organization Address City/[facility] Co de Phone Number [facility] [address] [facility] [address] [place] [address] * MELISSA (09/21/2023 8:36 AM CIGAR MAKING MACHINE SUPERVISOR) Only the most recent of2 resultswithin the time period is included. Serum Immunofixation AL + AL 09/30/2023 4:12 PM CIGAR MAKING MACHINE SUPERVISOR [facility] MELISSA Path Interp The follow-up serum protein immunofixation electrophoretic patterns obtained with the use of antisera against IgG, IgA, IgM, bound kappa and bound lambda light chains show two IgA lambda M-protein bands. 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 A small IgG kappa band is also present. Correlation with the clinical findings is recommended to determine the significance of this IgG kappa band, as it may represent the presence of daratumumab. 09/30/2023 4:12 PM CIGAR MAKING MACHINE SUPERVISOR [facility] Pathologist Signature . 09/30/2023 4:12 PM CIGAR MAKING MACHINE SUPERVISOR [facility] Blood Peripheral blood specimen / Unknown Venipuncture / Unknown 09/21/2023 8:36 AM CIGAR MAKING MACHINE SUPERVISOR 09/21/2023 8:42 AM CIGAR MAKING MACHINE SUPERVISOR Dewayne Nowak MD LAB BLOOD ORDERABLES [facility] Unless otherwise noted, all lab tests performed by: Division of Pathology and Laboratory Medicine [address] [place] [id number] * (ABNORMAL) Serum Protein Electrophoresis (09/21/2023 8:36 AM CIGAR MAKING MACHINE SUPERVISOR) Only the most recent of2 resultswithin the time period is included. Albumin 4.4 3.6 - 5.4 gm/dL 09/30/2023 4:12 PM CIGAR MAKING MACHINE SUPERVISOR [facility] Alpha 1 Globulin 0.3 0.2 - 0.4 gm/dL 09/30/2023 4:12 PM CIGAR MAKING MACHINE SUPERVISOR [facility] Alpha 2 Globulin 0.9 0.5 - 1.0 gm/dL 09/30/2023 4:12 PM CIGAR MAKING MACHINE SUPERVISOR [facility] Beta Globulin 0.9 0.5 - 1.1 gm/dL 09/30/2023 4:12 PM CIGAR MAKING MACHINE SUPERVISOR [facility] Gamma Globulin 0.3(L) 0.7 - 1.6 gm/dL 09/30/2023 4:12 PM CIGAR MAKING MACHINE SUPERVISOR [facility] Paraprotein1 0.0 0.0 - 0.0 gm/dL 09/30/2023 4:12 PM CIGAR MAKING MACHINE SUPERVISOR [facility] [facility] Paraprotein2 0.1(H) 0.0 - 0.0 gm/dL 09/30/2023 4:12 PM CIGAR MAKING MACHINE SUPERVISOR [facility] SPE Path Interp The follow-up serum protein electrophoretic pattern shows that the small M-protein peak is still discernable in the gamma region. It shows no change when compared to the previous value on 08/15/23. 09/30/2023 4:12 PM CIGAR MAKING MACHINE SUPERVISOR [facility] Pathologist Signature . 09/30/2023 4:12 PM CIGAR MAKING MACHINE SUPERVISOR [facility] Total Protein 6.8 6.4 - 8.3 gm/dL 09/30/2023 4:12 PM CIGAR MAKING MACHINE SUPERVISOR [facility] Blood Peripheral blood specimen / Unknown Venipuncture / Unknown 09/21/2023 8:36 AM CIGAR MAKING MACHINE SUPERVISOR 09/21/2023 8:42 AM CIGAR MAKING MACHINE SUPERVISOR Dewayne Nowak MD LAB BLOOD ORDERABLES [facility] Unless otherwise noted, all lab tests performed by: Division of Pathology and Laboratory Medicine [address] [place] [address] * Interleukin-6 (09/21/2023 8:36 AM CIGAR MAKING MACHINE SUPERVISOR) Only the most recent of4 resultswithin the time period is included. Interleukin-6 Quantity <3.2 <=5.0 pg/mL 09/22/2023 8:27 AM CIGAR MAKING MACHINE SUPERVISOR [facility] Comment:<LLOQ: Concentration is below the Lower Limit of Quantification of this test. HLA Comment Interfering substances were not determined. 09/22/2023 8:27 AM CIGAR MAKING MACHINE SUPERVISOR [facility] Cytokine Testing Note Test results are used to understand the pathophysiology of Immune, infectious, or inflammatory disorders. Given significant variation between laboratories and/or lots with all reagents, current methodology used in this test may not be suitable for repeated determinations over a long-term study or comparison between different laboratories. 09/22/2023 8:27 AM CIGAR MAKING MACHINE SUPERVISOR [facility] Cytokine Testing Methodology Multiplex Luminex Assay 09/22/2023 8:27 AM CIGAR MAKING MACHINE SUPERVISOR [facility] Cytokine Testing Signature These results were reviewed and interpreted byÁngel Amos MD, MS, F([facility])[[id number]] and Bruce Floyd M.D.[[id number]], Ph.D. 09/22/2023 8:27 AM CIGAR MAKING MACHINE SUPERVISOR [facility] Cytokine Testing Disclaimer Tests were developed and characteristics determined by [facility] laboratory. The validation study has been reviewed, and the performance of the method is considered acceptable for patient testing. The tests have not cleared by U.S. Food and Drug Administration. The laboratory is certified under CLIA-88 as qualified to perform high- complexity clincal laboratory testing. BIJAL: [id number] CAP: [id number] 09/22/2023 8:27 AM CIGAR MAKING MACHINE SUPERVISOR [facility] Blood Peripheral blood specimen / Unknown Venipuncture / Unknown 09/21/2023 8:36 AM CIGAR MAKING MACHINE SUPERVISOR 09/21/2023 8:42 AM CIGAR MAKING MACHINE SUPERVISOR Dewayne Nowak MD LAB BLOOD ORDERABLES [facility] [address] [place] [address] * (ABNORMAL) .CBC (09/21/2023 8:36 AM [facility]) Only the most recent of14 resultswithin the time period is included. White Blood Cell 7.1 4.1 - 10.5 K/uL 09/21/2023 9:01 AM [facility] Red Blood Cell 4.33 4.30 - 6.04 M/uL 09/21/2023 9:01 AM [facility] Hemoglobin 13.7 13.3 - 17.4 g/dL 09/21/2023 9:01 AM [facility] Hematocrit 39.7 39.5 - 51.8 % 09/21/2023 9:01 AM [facility] Mean Cell Volume 92 82 - 99 fL 09/21/2023 9:01 AM [facility] Mean Cell Hemoglobin 31.6 26.6 - 33.2 pg 09/21/2023 9:01 AM [facility] Mean Cell Hemoglobin Concentration 34.5 31.1 - 35.2 g/dL 09/21/2023 9:01 AM [facility] RDW-SD 39.8 37.5 - 49.7 fL 09/21/2023 9:01 AM [facility] Red Cell Diameter Width 11.8 11.6 - 15.5 % 09/21/2023 9:01 AM [facility] Platelet 225 160 - 397 K/uL 09/21/2023 9:01 AM [facility] Mean Platelet Volume 9.0(L) 9.1 - 12.6 fL 09/21/2023 9:01 AM [facility] INRBC 0.0 0.0 - 0.1 /100 WBC 09/21/2023 9:01 AM [facility] Comment: The INRBC (instrument NRBC) value reflects the enumeration of nucleated red blood cells contained in a 200uL sample of whole blood analyzed by the instrument. This value may differ from the NRBC value reported in a manual differential, which is based on a 100 cell differential. Neutrophil % 71.3 43.2 - 72.7 % 09/21/2023 9:01 AM [facility] Lymphocyte % 19.0 16.8 - 46.2 % 09/21/2023 9:01 AM [facility] Monocyte % 7.6 5.1 - 12.5 % 09/21/2023 9:01 AM [facility] Eosinophil % 1.4 0.4 - 6.3 % 09/21/2023 9:01 AM [facility] Basophil % 0.6 0.2 - 1.4 % 09/21/2023 9:01 AM [facility] IGRE % 0.1 0.1 - 1.5 % 09/21/2023 9:01 AM [facility] Comment:The IGRE% includes M etamyelocytes, Myelocytes and Promyelocytes. Neutrophil Abs 5.08 1.95 - 7.25 K/uL 09/21/2023 9:01 AM [facility] Lymphocyte Abs 1.35 1.01 - 3.24 K/uL 09/21/2023 9:01 AM [facility] Monocyte Abs 0.54 0.24 - 0.85 K/uL 09/21/2023 9:01 AM [facility] Eosinophil Abs 0.10 0.02 - 0.50 K/uL 09/21/2023 9:01 AM [facility] Basophil Abs 0.04 0.02 - 0.09 K/uL 09/21/2023 9:01 AM [facility] IG Abs 0.01 0.01 - 0.12 K/uL 09/21/2023 9:01 AM [facility] Blood Peripheral blood specimen / Unknown Venipuncture / Unknown 09/21/2023 8:36 AM CIGAR MAKING MACHINE SUPERVISOR 09/21/2023 8:42 AM [facility] Dewayne Nowak MD LAB BLOOD ORDERABLES [facility] Unless otherwise noted, all lab tests performed by: Division of Pathology and Laboratory Medicine [address] [place] [id number] * TMP Interp Auto Antibody Screen Positive (09/21/2023 8:36 AM CIGAR MAKING MACHINE SUPERVISOR) TMP Auto Pos ABSC Interp At the present time, laboratory testing of this patient s red blood cell (RBC) antibody screen is positive. DISPENSING CROSSMATCH COMPATIBLE RBC UNITS TO THIS PATIENT MAY REQUIRE ADDITIONAL TIME. Alloantibodies directed to RBC surface antigens most often form due to exposure to foreign RBCs during previous transfusion(s) / transplantation, during in female patients, or from exposure to environmental antigens similar in structure to RBC antigens. The presence of these actively formed antibodies may fade over time but can reemerge with re-exposure. Passively acquired alloantibodies may be present in a patient who recently received intravenous immunoglobulin (IVIg) and may be detected by this test. Additional new alloantibodies can result from recent transfusion or ; therefore, we require a repeat type and screen every three days in patients with continuing transfusion needs. 09/21/2023 4:17 PM CIGAR MAKING MACHINE SUPERVISOR [facility] TMP Signature . 09/21/2023 4:17 PM CIGAR MAKING MACHINE SUPERVISOR [facility] Blood Peripheral blood specimen / Unknown Venipuncture / Unknown 09/21/2023 8:36 AM CIGAR MAKING MACHINE SUPERVISOR 09/21/2023 8:42 AM CIGAR MAKING MACHINE SUPERVISOR Thuy Odonnell APRN BLOOD BANK TEST OR DERABLES [facility] - TRANSF[facility]ION SERVICES [facility] [address] [facility] [address] [place] [address] * Free [place]/Free Lambda Ratio (09/21/2023 8:36 AM CIGAR MAKING MACHINE SUPERVISOR) Only the most recent of6 resultswithin the time period is included. Free [place]/ Free Lambda Ratio 0.98 0.26 - 1.65 09/21/2023 3:42 PM CIGAR MAKING MACHINE SUPERVISOR [facility] Blood Peripheral blood specimen / Unknown Venipuncture / Unknown 09/21/2023 8:36 AM CIGAR MAKING MACHINE SUPERVISOR 09/21/2023 8:42 AM CIGAR MAKING MACHINE SUPERVISOR Dewayne Nowak MD LAB BLOOD ORDERABLES [facility] Unless otherwise noted, all lab tests performed by: Division of Pathology and Laboratory Medicine [address] [place] [address] * (ABNORMAL) Comprehensive Metabolic Panel (09/21/2023 8:36 AM CIGAR MAKING MACHINE SUPERVISOR) Only the most recent of2 resultswithin the time period is included. Bilirubin Total 0.6 <=1.2 mg/dL 09/21/2023 9:28 AM [facility] Comment: Indocyanine Green (ICG) may cause falsely elevated bilirubin results. Total and direct bilirubin must not be measured from samples containing indocyanine green. False elevation of total bilirubin can be seen in patients with IgG concentrations above 28 g/L. This result was previously suppressed from the chart. Bilirubin Direct <0.2 <=0.3 mg/dL 09/21/2023 9:28 AM [facility] Comment: Indocyanine Green (ICG) may cause falsely elevated bilirubin results. Total and direct bilirubin must not be measured from samples containing indocyanine green. This result was previously suppressed from the chart. Bilirubin Indirect 2022 9:28 AM [facility] Comment:Unable to calculate Indirect Bilirubin result due to some parameters are outside reportable range eGFR 100 >=60 mL/min/1. 73 sq. m 09/21/2023 9:28 AM [facility] Comment: The eGFRcr is calculated with the 2020 CKD-EPI creatinine equation using creatinine, patient's age, and sex for adults 18 years of age and older. Other factors, especially muscle mass, may affect accuracy and need to be considered. According to the Kidney Disease: Improving Global Outcomes (KDIGO) CKD Work Group 2012 Clinical Practice Guideline, chronic kidney disease (CKD) is defined as the abnormalities of kidney structure or function, present for more than 3 months, with implications for health. CKD should be classified by cause, GFR category, and albuminuria category. KDIGO guidelines provide the following GFR categories. Stage / Description / GFR mL/min/1.73 m2: G1* / Normal or high / >= 90 G2* / Mildly decreased / 60-89 G3a / Mildly to moderately decreased / 45-59 G3b / Moderately to severely decreased / 30-44 G4 / Severely decreased / 15-29 G5 / Kidney failure / <15 *In the absence of evidence of kidney damage, neither G1 nor G2 fulfill criteria for CKD. Tot Protein 6.8 6.4 - 8.3 gm/dL 09/21/2023 9:28 AM [facility] Comment:This result was prev iously suppressed from the chart. Calcium Level Total 9.3 8.2 - 10.2 mg/dL 09/21/2023 9:28 AM [facility] Comment:This result was prev iously suppressed from the chart. Alkaline Phosphatase 98 40 - 129 U/L 09/21/2023 9:28 AM [facility] Comment:This result was prev iously suppressed from the chart. Albumin Level 4.8 3.5 - 5.2 gm/dL 09/21/2023 9:28 AM [facility] Comment:This result was prev iously suppressed from the chart. AST 16 <=40 U/L 09/21/2023 9:28 AM [facility] Comment:This result was prev iously suppressed from the chart. ALT 15 <=41 U/L 09/21/2023 9:28 AM [facility] Comment:This result was prev iously suppressed from the chart. Sodium Level 141 136 - 145 mmol/L 09/21/2023 9:28 AM [facility] Comment:This result was prev iously suppressed from the chart. Potassium Level 4.2 3.4 - 4.5 mmol/L 09/21/2023 9:28 AM [facility] Comment:This result was prev iously suppressed from the chart. Chloride 103 98 - 107 mmol/L 09/21/2023 9:28 AM [facility] Comment:This result was prev iously suppressed from the chart. CO2 28 22 - 29 mmol/L 09/21/2023 9:28 AM [facility] Comment:This result was prev iously suppressed from the chart. Anion Gap 10 4 - 14 mmol/L 09/21/2023 9:28 AM [facility] Comment:This result was prev iously suppressed from the chart. Creatinine 0.84 0.67 - 1.17 mg/dL 09/21/2023 9:28 AM CIGAR MAKING MACHINE SUPERVISOR [facility] Comment:This result was prev iously suppressed from the chart. BUN 13 6 - 23 mg/dL 09/21/2023 9:28 AM [facility] Comment:This result was prev iously suppressed from the chart. Glucose Level 105(H) 70 - 99 mg/dL 09/21/2023 9:28 AM [facility] Comment: Effective 05/12/16, the glucose reference intervals have been updated based on [place] [employer] guidelines (Standards of Medical Care in Diabetes 2016. Diabetes Care 2016; 39: S13-S22). Fasting blood glucose: Normal: 70-99 mg/dL Impaired fasting glucose (increased risk for diabetes or pre-diabetes): 100-125 mg/dL Diabetes mellitus: >/=126 mg/dL Random blood glucose: Normal: 70-199 mg/dL Note: Random glucose >100 mg/dL is associated with increased risk for diabetes. This result was previously suppressed from the chart. Blood Peripheral blood specimen / Unknown Venipuncture / Unknown 09/21/2023 8:36 AM CIGAR MAKING MACHINE SUPERVISOR 09/21/2023 8:42 AM CIGAR MAKING MACHINE SUPERVISOR Dewayne Nowak MD LAB BLOOD ORDERABLES [facility] Unless otherwise noted, all lab tests performed by: Division of Pathology and Laboratory Medicine [address] [place] [id number] * 24hr Urine Total Protein (09/21/2023 8:36 AM CIGAR MAKING MACHINE SUPERVISOR) Only the most recent of4 resultswithin the time period is included. Urine Total Protein <4 mg/dL 09/21/2023 10:25 AM [facility] Comment:Caution is advised w hen interpreting values greater than 555 mg/dL. Results requiring extended dilution beyond the supervisor screen making's recommended limit may not dilute linearly due to potential matrix effect. Correlation with clinical context is recommended. Urine Total Pro per Total volume 09/21/2023 10:25 AM [facility] Comment:Unable to perform 24 hr calculation due to one or more parameters outside of reportable ranges. Total Volume 2,250 mL/24hr 09/21/2023 10:25 AM CIGAR MAKING MACHINE SUPERVISOR [facility] Hours Collected 24 hr 10:25 AM CIGAR MAKING MACHINE SUPERVISOR [facility] Start Date 09/20/2023 09/21/2023 10:25 AM CIGAR MAKING MACHINE SUPERVISOR [facility] Start Time 8:00 AM 09/21/2023 10:25 AM CIGAR MAKING MACHINE SUPERVISOR [facility] End Date 09/21/2023 09/21/2023 10:25 AM CIGAR MAKING MACHINE SUPERVISOR [facility] End Time 8:00 AM 09/21/2023 10:25 AM [facility] How many jugs collected? 1 09/21/2023 10:25 AM [facility] Urine 24 Hr Voided urine specimen / Unknown Non-blood Collection / Unknown 09/21/2023 8:36 AM CIGAR MAKING MACHINE SUPERVISOR 09/21/2023 9:34 AM CIGAR MAKING MACHINE SUPERVISOR Dewayne Nowak MD URINE ORDERABLES [facility] Unless otherwise noted, all lab tests performed by: Division of Pathology and Laboratory Medicine [address] [place] [id number] * TMP Interpretation Antibody Identification (09/21/2023 8:36 AM CIGAR MAKING MACHINE SUPERVISOR) TMP ABID Interpretation At the present time, laboratory testing of this patient's red blood cell (RBC) antibody screen is positive. DISPENSING CROSSMATCH COMPATIBLE RBC UNITS TO THIS PATIENT MAY REQUIRE ADDITIONAL TIME. This patient has formed an alloantibody against an unidentified RBC antigen(s). We are unable to determine if specific alloantibodies are present or if the unidentified antibodies are clinically significant. All RBC units for transfusion should be crossmatched, and compatible or least incompatible RBC unit(s) should be selected for transfusion. This will cause a delay in dispensing RBCs. If least incompatible units are dispensed, monitoring for signs or symptoms of hemolysis is recommended. Alloantibodies directed to RBC surface antigens most often form due to exposure to foreign RBCs during previous transfusion(s) / transplantation, during in female patients, or from exposure to environmental antigens similar in structure to RBC antigens. The presence of these actively formed antibodies may fade over time but can reemerge with re-exposure. Passively acquired alloantibodies may be present in a patient who recently received intravenous immunoglobulin (IVIg) and may be detected by this test. Additional new alloantibodies can result from recent transfusion or ; therefore, we require a repeat type and screen every three days in patients with continuing transfusion needs. 09/22/2023 1:40 PM CIGAR MAKING MACHINE SUPERVISOR [facility] TMP Signature . 09/22/2023 1:40 PM CIGAR MAKING MACHINE SUPERVISOR [facility] Blood Peripheral blood specimen / Unknown Venipuncture / Unknown 09/21/2023 8:36 AM CIGAR MAKING MACHINE SUPERVISOR 09/21/2023 8:42 AM CIGAR MAKING MACHINE SUPERVISOR Thuy Odonnell APRN BLOOD BANK TEST OR DERABLES [facility] - TRANSF[facility]ION SERVICES [facility] [address] [facility] [address] [place] [address] * Vascular Endothelial Growth Factor (VEGF) (09/21/2023 8:36 AM CIGAR MAKING MACHINE SUPERVISOR) Only the most recent of7 resultswithin the time period is included. VEGF-Sullivan 47.1 <=96.2 pg/mL 09/27/2023 1:29 PM CIGAR MAKING MACHINE SUPERVISOR [facility] Comment: ADDITIONAL INFORMATION This test was developed and its performance characteristics determined by [facility] in a manner consistent with CLIA requirements. This test has not been cleared or approved by the U.S. Food and Drug Administration. Test Performed by: [facility] - [address] [address] Child Care Provider: Chase Thornton M.D. Ph.D.; CLIA# [id number] Blood Peripheral blood specimen / Unknown Venipuncture / Unknown 09/21/2023 8:36 AM CIGAR MAKING MACHINE SUPERVISOR 09/21/2023 8:42 AM CIGAR MAKING MACHINE SUPERVISOR Dewayne Nowak MD LAB BLOOD ORDERABLES Performing Organization Address City/[facility]/ZIP Co de Phone Number [facility] * Free Lambda Light Chain (09/21/2023 8:36 AM CIGAR MAKING MACHINE SUPERVISOR) Only the most recent of6 resultswithin the time period is included. Free Lambda Light chain 6.88 5.71 - 26.30 mg/L 09/21/2023 3:42 PM CIGAR MAKING MACHINE SUPERVISOR [facility] Blood Peripheral blood specimen / Unknown Venipuncture / Unknown 09/21/2023 8:36 AM CIGAR MAKING MACHINE SUPERVISOR 09/21/2023 8:42 AM CIGAR MAKING MACHINE SUPERVISOR Dewayne Nowak MD LAB BLOOD ORDERABLES Performing Organization Address City/[facility] Co de Phone Number [facility] Unless otherwise noted, all lab tests performed by: Division of Pathology and Laboratory Medicine [address] [place] [address] * Free [place] Light Chain (09/21/2023 8:36 AM CIGAR MAKING MACHINE SUPERVISOR) Only the most recent of6 resultswithin the time period is included. Free [place] Light 6.77 3.30 - 19.40 mg/L 09/21/2023 3:42 PM CIGAR MAKING MACHINE SUPERVISOR [facility] Blood Peripheral blood specimen / Unknown Venipuncture / Unknown 09/21/2023 8:36 AM CIGAR MAKING MACHINE SUPERVISOR 09/21/2023 8:42 AM CIGAR MAKING MACHINE SUPERVISOR Dewayne Nowak MD LAB BLOOD ORDERABLES Performing Organization Address City/[facility] Co de Phone Number [facility] Unless otherwise noted, all lab tests performed by: Division of Pathology and Laboratory Medicine [address] [place] [id number] * Antibody Identification (09/21/2023 8:36 AM CIGAR MAKING MACHINE SUPERVISOR) ABID 1 Ab Und Specificity 09/21/2023 12:18 PM CIGAR MAKING MACHINE SUPERVISOR [facility] Blood Peripheral blood specimen / Unknown Venipuncture / Unknown 09/21/2023 8:36 AM CIGAR MAKING MACHINE SUPERVISOR 09/21/2023 8:42 AM CIGAR MAKING MACHINE SUPERVISOR Thuy Jimenez V SLOOP CAPTAIN BLOOD BANK TEST OR DERABLES [facility] TRAN[facility]ION SERVICES [facility] [address] [facility] [address] [place] [address] * (ABNORMAL) Type and Screen (09/21/2023 8:36 AM CIGAR MAKING MACHINE SUPERVISOR) ABORh O POS 09/21/2023 8:16 AM CIGAR MAKING MACHINE SUPERVISOR [facility] ABSC Positive(A) 09/21/2023 8:16 AM CIGAR MAKING MACHINE SUPERVISOR [facility] Clot Expiration 09/24/2023 23:59 09/21/2023 8:16 AM CIGAR MAKING MACHINE SUPERVISOR [facility] Historical Record Check Complete 09/21/2023 8:16 AM CIGAR MAKING MACHINE SUPERVISOR [facility] Blood Peripheral blood specimen / Unknown Venipuncture / Unknown 09/21/2023 8:36 AM CIGAR MAKING MACHINE SUPERVISOR 09/21/2023 8:42 AM CIGAR MAKING MACHINE SUPERVISOR Thuy Jimenez VBRIGETTE BLOOD BANK TEST OR DERABLES [facility] - TRANSFUSION SERVICES [facility] [address] [facility] [address] [place] [address] * Uric Acid (09/21/2023 8:36 AM CIGAR MAKING MACHINE SUPERVISOR) Only the most recent of6 resultswithin the time period is included. Uric Acid 6.8 3.4 - 7.0 mg/dL 09/21/2023 9:27 AM CIGAR MAKING MACHINE SUPERVISOR [facility] Blood Peripheral blood specimen / Unknown Venipuncture / Unknown 09/21/2023 8:36 AM CIGAR MAKING MACHINE SUPERVISOR 09/21/2023 8:42 AM CIGAR MAKING MACHINE SUPERVISOR Dewayne Nowak MD LAB BLOOD ORDERABLES [facility] Unless otherwise noted, all lab tests performed by: Division of Pathology and Laboratory Medicine [address] [place] [id number] * Free T3 (09/21/2023 8:36 AM CIGAR MAKING MACHINE SUPERVISOR) Free T3 3.0 2.0 - 4.4 pg/mL 09/21/2023 10:06 AM CIGAR MAKING MACHINE SUPERVISOR [facility] Blood Peripheral blood specimen / Unknown Venipuncture / Unknown 09/21/2023 8:36 AM CIGAR MAKING MACHINE SUPERVISOR 09/21/2023 8:42 AM CIGAR MAKING MACHINE SUPERVISOR Dewayne Nowak MD LAB BLOOD ORDERABLES [facility] Unless otherwise noted, all lab tests performed by: Division of Pathology and Laboratory Medicine [address] [place] [address] * TSH (09/21/2023 8:36 AM CIGAR MAKING MACHINE SUPERVISOR) Thyroid Stimulating Hormone 1.67 0.27 - 4.20 mcunit/mL 09/21/2023 9:40 AM CIGAR MAKING MACHINE SUPERVISOR [facility] Blood Peripheral blood specimen / Unknown Venipuncture / Unknown 09/21/2023 8:36 AM CIGAR MAKING MACHINE SUPERVISOR 09/21/2023 8:42 AM CIGAR MAKING MACHINE SUPERVISOR Dewayne Nwoak MD LAB BLOOD ORDERABLES Performing Organization Address City/[facility]/ZIP Co de Phone Number [facility] Unless otherwise noted, all lab tests performed by: Division of Pathology and Laboratory Medicine [address] [place] [id number] * Free T4 (09/21/2023 8:36 AM CIGAR MAKING MACHINE SUPERVISOR) T4 (Thyroxine) Free 1.22 0.93 - 1.70 ng/dL 09/21/2023 9:40 AM CIGAR MAKING MACHINE SUPERVISOR [facility] Blood Peripheral blood specimen / Unknown Venipuncture / Unknown 09/21/2023 8:36 AM CIGAR MAKING MACHINE SUPERVISOR 09/21/2023 8:42 AM CIGAR MAKING MACHINE SUPERVISOR Dewayne Nowak MD LAB BLOOD ORDERABLES [facility] Unless otherwise noted, all lab tests performed by: Division of Pathology and Laboratory Medicine [address] [place] [phone] * Testosterone Level (09/21/2023 8:36 AM CIGAR MAKING MACHINE SUPERVISOR) Pathologist [facility] Testosterone Total 373 193 - 740 ng/dL 09/21/2023 10:06 AM CIGAR MAKING MACHINE SUPERVISOR [facility] Blood Peripheral blood specimen / Unknown Venipuncture / Unknown 09/21/2023 8:36 AM CIGAR MAKING MACHINE SUPERVISOR 09/21/2023 8:42 AM CIGAR MAKING MACHINE SUPERVISOR Narrative [facility] - 09/21/2023 10:06 AM CIGAR MAKING MACHINE SUPERVISOR Reference Ranges: Male: Age 20 - 49 249 - 836 Age >=50 193 - 740 Female: Age 20 - 49 8 - 48 Age >=50 3 - 41 Dewayne Nowak MD LAB BLOOD ORDERABLES Performing Organization Address City/[facility]/ZIP Co de Phone Number [facility] Unless otherwise noted, all lab tests performed by: Division of Pathology and Laboratory Medicine [address] [place] [address] [id number] * Phosphorus Level (09/21/2023 8:36 AM CIGAR MAKING MACHINE SUPERVISOR) Only the most recent of6 resultswithin the time period is included. [facility] Phosphorus Level 3.5 2.5 - 4.5 mg/dL 09/21/2023 9:27 AM CIGAR MAKING MACHINE SUPERVISOR [facility] Blood Peripheral blood specimen / Unknown Venipuncture / Unknown 09/21/2023 8:36 AM CIGAR MAKING MACHINE SUPERVISOR 09/21/2023 8:42 AM CIGAR MAKING MACHINE SUPERVISOR Dewayne Nowak MD LAB BLOOD ORDERABLES [facility] Unless otherwise noted, all lab tests performed by: Division of Pathology and Laboratory Medicine [address] [place] [address] [id number] * Magnesium Level (09/21/2023 8:36 AM CIGAR MAKING MACHINE SUPERVISOR) Only the most recent of11 resultswithin the time period is included. [facility] Magnesium Level 2.1 1.6 - 2.6 mg/dL 09/21/2023 9:27 AM CIGAR MAKING MACHINE SUPERVISOR [facility] Blood Peripheral blood specimen / Unknown Venipuncture / Unknown 09/21/2023 8:36 AM CIGAR MAKING MACHINE SUPERVISOR 09/21/2023 8:42 AM CIGAR MAKING MACHINE SUPERVISOR Dewayne Nowak MD LAB BLOOD ORDERABLES Performing Organization Address [facility] de Phone Number [facility] Unless otherwise noted, all lab tests performed by: Division of Pathology and Laboratory Medicine [address] [place] [address] [id number] * LDH (09/21/2023 8:36 AM CIGAR MAKING MACHINE SUPERVISOR) Only the most recent of6 resultswithin the time period is included. [facility] LDH 190 135 - 225 U/L 09/21/2023 9:27 AM CIGAR MAKING MACHINE SUPERVISOR [facility] Blood Peripheral blood specimen / Unknown Venipuncture / Unknown 09/21/2023 8:36 AM CIGAR MAKING MACHINE SUPERVISOR 09/21/2023 8:42 AM CIGAR MAKING MACHINE SUPERVISOR Narrative [facility] - 09/21/2023 9:27 AM CIGAR MAKING MACHINE SUPERVISOR Results greater than 1651 U/L may not be reliable due to matrix effect with extended dilution as it exceeds the supervisor screen making's recommended limit. Caution should be exercised when interpreting such values and done in conjunction with clinical context. Dewayne Nowak MD LAB BLOOD ORDERABLES Performing Organization Address [facility] de Phone Number [facility] Unless otherwise noted, all lab tests performed by: Division of Pathology and Laboratory Medicine [address] [place] [address] [phone] * (ABNORMAL) Hemoglobin A1c (09/21/2023 8:36 AM CIGAR MAKING MACHINE SUPERVISOR) Pathologist [facility] Hemoglobin A1c <4.3(L) 4.3 - 5.6 % 09/21/2023 9:45 AM CIGAR MAKING MACHINE SUPERVISOR [facility] Blood Peripheral blood specimen / Unknown Venipuncture / Unknown 09/21/2023 8:36 AM CIGAR MAKING MACHINE SUPERVISOR 09/21/2023 8:42 AM CIGAR MAKING MACHINE SUPERVISOR Narrative [facility] - 09/21/2023 9:45 AM CIGAR MAKING MACHINE SUPERVISOR HbA1c values >=6.5% are diagnostic of diabetes mellitus. Diagnosis should be confirmed by repeat testing. Therapeutic Action suggested: >8.0% HbA1c; Goal of therapy: <7.0% HbA1c Dewayne Nowak MD LAB BLOOD ORDERABLES Performing Organization Address City/[facility] Co de Phone Number [facility] Unless otherwise noted, all lab tests performed by: Division of Pathology and Laboratory Medicine [address] [place] [address] [phone] * IgA (09/21/2023 8:36 AM CIGAR MAKING MACHINE SUPERVISOR) Only the most recent of6 resultswithin the time period is included. IgA 210.0 85.0 - 499.0 mg/dL 09/21/2023 3:42 PM CIGAR MAKING MACHINE SUPERVISOR [facility] Blood Peripheral blood specimen / Unknown Venipuncture / Unknown 09/21/2023 8:36 AM CIGAR MAKING MACHINE SUPERVISOR 09/21/2023 8:42 AM CIGAR MAKING MACHINE SUPERVISOR Dewayne Nowak MD LAB BLOOD ORDERABLES Performing Organization Address [facility] Co de Phone Number [facility] Unless otherwise noted, all lab tests performed by: Division of Pathology and Laboratory Medicine [address] [place] [address] [phone] * (ABNORMAL) IgM (09/21/2023 8:36 AM CIGAR MAKING MACHINE SUPERVISOR) Only the most recent of6 resultswithin the time period is included. IgM <12.0(L) 35.0 - 242.0 mg/dL 09/21/2023 3:42 PM CIGAR MAKING MACHINE SUPERVISOR [facility] Blood Peripheral blood specimen / Unknown Venipuncture / Unknown 09/21/2023 8:36 AM CIGAR MAKING MACHINE SUPERVISOR 09/21/2023 8:42 AM CIGAR MAKING MACHINE SUPERVISOR Dewayne Nowak MD LAB BLOOD ORDERABLES Performing Organization Address City/[facility] Co de Phone Number [facility] Unless otherwise noted, all lab tests performed by: Division of Pathology and Laboratory Medicine [address] [place] [address] [phone] * (ABNORMAL) IgG (09/21/2023 8:36 AM CIGAR MAKING MACHINE SUPERVISOR) Only the most recent of6 resultswithin the time period is included. IgG 343.0(L) 610.0 - 1,616.0 mg/dL 09/21/2023 3:42 PM CIGAR MAKING MACHINE SUPERVISOR [facility] Blood Peripheral blood specimen / Unknown Venipuncture / Unknown 09/21/2023 8:36 AM CIGAR MAKING MACHINE SUPERVISOR 09/21/2023 8:42 AM CIGAR MAKING MACHINE SUPERVISOR Dewayne Nowak MD LAB BLOOD ORDERABLES Performing Organization Address [facility] de Phone Number [facility] Unless otherwise noted, all lab tests performed by: Division of Pathology and Laboratory Medicine [address] [place] [address] [id number] * Beta 2 Microglobulin (09/21/2023 8:36 AM CIGAR MAKING MACHINE SUPERVISOR) Only the most recent of6 resultswithin the time period is included. Beta 2 Microglobulin 1.80 0.80 - 2.30 mg/L 09/21/2023 3:42 PM CIGAR MAKING MACHINE SUPERVISOR [facility] Blood Peripheral blood specimen / Unknown Venipuncture / Unknown 09/21/2023 8:36 AM CIGAR MAKING MACHINE SUPERVISOR 09/21/2023 8:42 AM CIGAR MAKING MACHINE SUPERVISOR Narrative [facility] - 09/21/2023 3:42 PM CIGAR MAKING MACHINE SUPERVISOR This test is measured by turbidimetric methodology on The Binding [employer] Optilite analyzer. Results obtained in different methods are not interchangeable. Dewayne Nowak MD LAB BLOOD ORDERABLES Performing Organization Address [facility] de Phone Number [facility] Unless otherwise noted, all lab tests performed by: Division of Pathology and Laboratory Medicine [address] [place] [address] [phone] * PETCT WB Subsequent Treatment Strategy (08/16/2023 8:33 AM CDT) Anatomical Region Laterality Modality Whole Body Positron Emissio n Tomography (PET) 08/16/2023 9:50 AM CDT Impressions 08/16/2023 10:07 AM CDT Grossly unchanged distribution and appearance of FDG avid lymphadenopathy and osseous lesions, allowing for differences in study technique. ACTIONABLE ITEMS/RECOMMENDATIONS: None. Narrative 08/16/2023 10:07 AM CDT FULL RESULT: Examination: 18F-FDG-PET/CT without contrast, 08/16/2023 8:33 AM Clinical History: POEMS syndrome. Multiple myeloma. Indication: Subsequent treatment planning Comparison: FDG PET/CT from 05/11/2023 Technique: F-18 fluorodeoxyglucose 9.8 mCi was administered intravenously via right antecubital fossa. To allow for distribution and uptake of radiotracer, the patient was asked to rest quietly for approximately 60-90 minutes. PET/CT imaging was performed from the vertex to feet. CT scanning was done for attenuation correction, image registration, and diagnosis with scan parameters optimized to minimize radiation exposure to the patient. SUV measurements are reported as maximum SUV based on body weight unless otherwise specified. Findings: Head and Neck: Grossly similar uptake involving FDG avid right cervical lymphadenopathy, SUV 12, previously same, image 132, with comparison slightly limited secondary to differences in arm positioning. Similarly, previously seen left cervical lymphadenopathy is grossly similar, SUV 8.5, previously 6.9, image 113, can evaluation is limited secondary to arms being in different positions. No suspicious focal uptake in the brain. Sinuses are well aerated. Chest: Previously seen posterior mediastinal lymphadenopathy is grossly unchanged in distribution and appearance, reference juxta esophageal, SUV 8.8, previously 8.1, image 195. Revisualized FDG avid right axillary level 1 lymphadenopathy, again comparison is limited secondary to arms being in different positions, SUV 14, previously 6.0, with increased prominence of uptake possibly related to differences in study technique with increased sensitivity of the contemporaneous Quadra scanner. Additional previously seen paraspinal FDG avid nodularity is also grossly similar in distribution and appearance, reference image 195, SUV 9.0, previously 7.0. Otherwise, no evidence of hypermetabolic pulmonary mass, pneumothorax, or significant pleural effusion. The thoracic aorta is within normal limits of caliber. The pericardium is grossly unremarkable. Similar appearance of left sided mild gynecomastia and small cutaneous chest nodule, image 210, the latter of which probably represents a sebaceous cyst and can be correlated clinically. Abdomen and Pelvis: No definite hypermetabolic or enlarged abdominopelvic lymphadenopathy. Heterogeneous activity in the liver without suspicious focal uptake. Nonenlarged spleen is not hypermetabolic. The kidneys demonstrate relatively symmetric mild perinephric fat stranding. The adrenal glands, pancreas, and partially contracted gallbladder are otherwise grossly unremarkable. No suspicious focal uptake in the bowel. Anorectal activity is considered physiologic. The appendix is not dilated. Ventral hernia containing fat. Limited evaluation of underdistended urinary bladder is grossly unremarkable. Some mild heterogeneous activity in the prostate gland with a slightly more focal area of uptake along the right apex correlating with a calcific density, image 437, probably representing chronic prostatitis. No significant ascites. Musculoskeletal: Grossly similar distribution and appearance of previously seen hypermetabolic osseous lesions, reference: 1. Left humeral head, SUV 6.2, previously 8.1, image 139. 2. T1, SUV 3.5, previously 4.1, image 145. 3. T4 posterior elements/spinous process, SUV 16, previously 13, image 171. 4. L2 spinous process, SUV 6.9, previously 5.9, image 294. 5. Right pubis, SUV 5.3, previously 3.8, image 428. 6. Right intertrochanteric, SUV 6.0, previously 4.6, image 443. Previously seen uptake involving T12 sclerotic lesion is somewhat less prominent, SUV 3.3, previously 6.1, considered nonspecific. Otherwise, additional scattered non-FDG avid predominantly sclerotic lesions may represent treated disease. No definite new hypermetabolic lytic or blastic osseous lesions. Procedure Note David Benjamin MD - 08/16/2023 FULL RESULT: Examination: 18F-FDG-PET/CT without contrast, 08/16/2023 8:33 AM Clinical History: POEMS syndrome. Multiple myeloma. Indication: Subsequent treatment planning Comparison: FDG PET/CT from 05/11/2023 Technique: F-18 fluorodeoxyglucose 9.8 mCi was administered intravenously via rightantecubital fossa. To allow for distribution and uptake of radiotracer,the patient was asked to rest quietly for approximately 60-90 minutes.PET/CT imaging was performed from the vertex to feet. CT scanning was donefor attenuation correction, image registration, and diagnosis with scanparameters optimized to minimize radiation exposure to the patient. SUVmeasurements are reported as maximum SUV based on body weight unlessotherwise specified. Findings: Head and Neck: Grossly similar uptake involving FDG avid right cervical lymphadenopathy,SUV 12, previously same, image 132, with comparison slightly limitedsecondary to differences in arm positioning. Similarly, previously seenleft cervical lymphadenopathy is grossly similar, SUV 8.5, previously 6.9,image 113, can evaluation is limited secondary to arms being in differentpositions. No suspicious focal uptake in the brain. Sinuses are well aerated. Chest: Previously seen posterior mediastinal lymphadenopathy is grossly unchangedin distribution and appearance, reference juxta esophageal, SUV 8.8,previously 8.1, image 195. Revisualized FDG avid right axillary level 1lymphadenopathy, again comparison is limited secondary to arms being indifferent positions, SUV 14, previously 6.0, with increased prominence ofuptake possibly related to differences in study technique with increasedsensitivity of the contemporaneous Quadra scanner. Additional previouslyseen paraspinal FDG avid nodularity is also grossly similar indistribution and appearance, reference image 195, SUV 9.0, previously7.0. Otherwise, no evidence of hypermetabolic pulmonary mass, pneumothorax, orsignificant pleural effusion. The thoracic aorta is within normal limitsof caliber. The pericardium is grossly unremarkable. Similar appearance ofleft sided mild gynecomastia and small cutaneous chest nodule, image 210,the latter of which probably represents a sebaceous cyst and can becorrelated clinically. Abdomen and Pelvis: No definite hypermetabolic or enlarged abdominopelvic lymphadenopathy.Heterogeneous activity in the liver without suspicious focal uptake.Nonenlarged spleen is not hypermetabolic. The kidneys demonstraterelatively symmetric mild perinephric fat stranding. The adrenal glands,pancreas, and partially contracted gallbladder are otherwise grosslyunremarkable. No suspicious focal uptake in the bowel. Anorectal activityis considered physiologic. The appendix is not dilated. Ventral herniacontaining fat. Limited evaluation of underdistended urinary bladder isgrossly unremarkable. Some mild heterogeneous activity in the prostategland with a slightly more focal area of uptake along the right apexcorrelating with a calcific density, image 437, probably representingchronic prostatitis. No significant ascites. Musculoskeletal: Grossly similar distribution and appearance of previously seenhypermetabolic osseous lesions, reference: 1. Left humeral head, SUV 6.2, previously 8.1, image 139. 2. T1, SUV 3.5, previously 4.1, image 145. 3. T4 posterior elements/spinous process, SUV 16, previously 13, [id number]. 4. L2 spinous process, SUV 6.9, previously 5.9, image 294. 5. Right pubis, SUV 5.3, previously 3.8, image 428. 6. Right intertrochanteric, SUV 6.0, previously 4.6, image 443. Previously seen uptake involving T12 sclerotic lesion is somewhat lessprominent, SUV 3.3, previously 6.1, considered nonspecific. Otherwise,additional scattered non- FDG avid predominantly sclerotic lesions mayrepresent treated disease. No definite new hypermetabolic lytic or blasticosseous lesions. IMPRESSION: Grossly unchanged distribution and appearance of FDG avid lymphadenopathyand osseous lesions, allowing for differences in study technique. ACTIONABLE ITEMS/RECOMMENDATIONS: None. Dewayne Nowak MD IMG PETCT ORDERABLES * [facility] CP BLSTFL (08/15/2023 9:46 AM CDT) Only the most recent of2 resultswithin the time period is included. 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 08/30/2023 6:52 PM [facility] Urine 24 Hr Non-blood Collection / Unknown 08/15/2023 9:46 AM CDT 08/15/2023 10:58 AM CDT Shelley HSIEH URINE ORDERABLES Performing Organization Address [facility] de Phone Number [facility] Unless otherwise noted, all lab tests performed by: Division of Pathology and Laboratory Medicine [address] [place] [address] [phone] * Protein Electrophoresis Urine (08/15/2023 9:46 AM CDT) Urine Albumin % 29.4 % 08/30/2023 6:52 PM [facility] U Globulin % 70.6 % 08/30/2023 6:52 PM [facility] U ProE Path Interp The follow-up urine protein electrophoretic pattern shows a faint indistinct linear density in the gamma region. If a Bence-Streeter proteinuria is suspected clinically, serum free light chain and urine MELISSA studies are recommended. 08/30/2023 6:52 PM [facility] Pathologist Signature . 08/30/2023 6:52 PM [facility] Urine 24 Hr Non-blood Collection / Unknown 08/15/2023 9:46 AM CDT 08/15/2023 10:58 AM CDT Shelley HSIEH URINE ORDERABLES Performing Organization Address City/[facility] Co de Phone Number [facility] Unless otherwise noted, all lab tests performed by: Division of Pathology and Laboratory Medicine [address] [place] [address] [phone] * (ABNORMAL) Differential (08/15/2023 9:46 AM CDT) Only the most recent of13 resultswithin the time period is included. Total Cells 113 08/15/2023 11:58 AM CDT [facility] Manual Neutrophil % 77.0(H) 43.2 - 72.7 % 08/15/2023 11:58 AM CDT [facility] Comment:The Neutrophil count includes Bands. Manual Lymphocyte % 17.0 16.8 - 46.2 % 08/15/2023 11:58 AM CDT [facility] Manual Monocyte % 5.0(L) 5.1 - 12.5 % 08/15/2023 11:58 AM CDT [facility] Manual Eosinophil % 1.0 0.4 - 6.3 % 08/15/2023 11:58 AM CDT [facility] Metamyelocyte % 11:58 AM CDT [facility] Comment:The Metamyelocyte co unt includes Myelocytes. Manual Neutrophil Abs 5.47 1.95 - 7.25 K/uL 08/15/2023 11:58 AM CDT [facility] Manual Lymphocyte Abs 1.21 1.01 - 3.24 K/uL 08/15/2023 11:58 AM CDT [facility] Manual Monocyte Abs 0.36 0.24 - 0.85 K/uL 08/15/2023 11:58 AM CDT [facility] Manual Eosinophil Abs 0.07 0.02 - 0.50 K/uL 08/15/2023 11:58 AM CDT [facility] RBC Morphology PRESENT 08/15/2023 11:58 AM CDT [facility] Ovalocyte Present(A) (none) 08/15/2023 11:58 AM CDT [facility] Tear Drop Present(A) (none) 08/15/2023 11:58 AM CDT [facility] Microcyte Present(A) (none) 08/15/2023 11:58 AM CDT [facility] Blood Venipuncture / Unknown 08/15/2023 9:46 AM CDT 08/15/2023 10:00 AM CDT Shelley HSIEH LAB BLOOD ORDERABLES [facility] Unless otherwise noted, all lab tests performed by: Division of Pathology and Laboratory Medicine [address] [place] [address] [phone] * MDA CP PLASMF (08/09/2023 7:03 AM CDT) Blood Peripheral blood specimen / Unknown Venipuncture / Unknown 08/09/2023 7:03 AM CDT 08/09/2023 7:32 AM CDT Dewayne Nowak MD LAB BLOOD ORDERABLES [facility] Unless otherwise noted, all lab tests performed by: Division of Pathology and Laboratory Medicine [address] [place] [address] [phone] * .Serum Creatinine (08/02/2023 7:12 AM CDT) Only the most recent of9 resultswithin the time period is included. Creatinine 0.77 0.67 - 1.17 mg/dL [facility] [place] Comment:Testing Performed at [facility], [address] [place] [id number] Blood 08/02/2023 7:12 AM CDT 08/02/2023 7:14 AM CDT Dewayne Nowak MD LAB BLOOD ORDERABLES Performing Organization Address [facility] de Phone Number [address] [phone] * Glomerular Filtration Rate (08/02/2023 7:12 AM CDT) Only the most recent of9 resultswithin the time period is included. eGFR 103 >=60 mL/min/1.7 3 sq. m [employer] Comment: The eGFRcr is calculated with the 2020 CKD-EPI creatinine equation using creatinine, patient's age, and sex for adults 18 years of age and older. Other factors, especially muscle mass, may affect accuracy and need to be considered. According to the Kidney Disease: Improving Global Outcomes (KDIGO) CKD Work Group 2012 Clinical Practice Guideline, chronic kidney disease (CKD) is defined as the abnormalities of kidney structure or function, present for more than 3 months, with implications for health. CKD should be classified by cause, GFR category, and albuminuria category. KDIGO guidelines provide the following GFR categories Stage Description GFR mL/min/1.73 m2 G1* Normal or high >= 90 G2* Mildly decreased 60-89 G3a Mildly to moderately decreased 45-59 G3b Moderately to severely decreased 30-44 G4 Severely decreased 15-29 G5 Kidney failure <15 *In the absence of evidence of kidney damage, neither G1 nor G2 fulfill criteria for CKD. Testing Performed at [facility], [address] [place] [id number] Blood 08/02/2023 7:12 AM CDT 08/02/2023 7:14 AM CDT Dewayne Nowak MD LAB BLOOD ORDERABLES [facility] [address] [id number] * Fractionated Bilirubin (08/02/2023 7:12 AM CDT) Only the most recent of9 resultswithin the time period is included. Bili Total 0.7 <=1.2 mg/dL [facility] Comment: Indocyanine Green (ICG) may cause falsely elevated bilirubin results. Total and direct bilirubin must not be measured from samples containing indocyanine green. False elevation of total bilirubin can be seen in patients with IgG concentrations above 28 g/L. Testing Performed at [facility], [address] [place] [id number] Bili Direct <0.2 <=0.3 mg/dL [facility] Comment: Indocyanine Green (ICG) may cause falsely elevated bilirubin results. Total and direct bilirubin must not be measured from samples containing indocyanine green. Testing Performed at [facility], [address] [place] [address] Bili Indirect See Note 0.0 - 0.9 mg/dL LAWRENCE SHOOK Comment: Unable to calculate Indirect Bilirubin result due to some parameters are outside reportable range Testing Performed at [facility], [address] [place] [address] Blood 08/02/2023 7:12 AM CDT 08/02/2023 7:14 AM CDT Dewayne Nowak MD LAB BLOOD ORDERABLES Performing Organization Address [facility] Co de Phone Number [address] [address] * BUN (08/02/2023 7:12 AM CDT) Only the most recent of9 resultswithin the time period is included. BUN 20 6 - 23 mg/dL [facility] Comment:Testing Performed at [facility], [address] [place] [address] Blood 08/02/2023 7:12 AM CDT 08/02/2023 7:14 AM CDT Dewayne Nowak MD LAB BLOOD ORDERABLES Performing Organization Address [facility] [place] [address] * ALT (08/02/2023 7:12 AM CDT) Only the most recent of9 resultswithin the time period is included. ALT 16 <=41 U/L [facility] Comment:Testing Performed at [facility], [address] [place] [address] Blood 08/02/2023 7:12 AM CDT 08/02/2023 7:14 AM CDT Dewayne Nowak MD LAB BLOOD ORDERABLES Performing Organization Address [facility] Co de Phone Number [address] [address] * Aspartate Aminotransferase (08/02/2023 7:12 AM CDT) Only the most recent of9 resultswithin the time period is included. AST 12 <=40 U/L [facility] Comment:Testing Performed at [facility], [address] [place] [address] Blood 08/02/2023 7:12 AM CDT 08/02/2023 7:14 AM CDT Dewayne Nowak MD LAB BLOOD ORDERABLES Performing Organization Address [facility] [place] [address] * (ABNORMAL) Total Protein (08/02/2023 7:12 AM CDT) Only the most recent of9 resultswithin the time period is included. [facility] Total Protein 6.3(L) 6.4 - 8.3 g/dL [facility] Comment:Testing Performed at [facility], [address] [place] [address] Blood 08/02/2023 7:12 AM CDT 08/02/2023 7:14 AM CDT Dewayne Nowak MD LAB BLOOD ORDERABLES Performing Organization Address [facility] [place] [address] * Alkaline Phosphatase (08/02/2023 7:12 AM CDT) Only the most recent of9 resultswithin the time period is included. [facility] Alk Phos 91 40 - 129 U/L [facility] [place] Comment:Testing Performed at [facility], [address] [place] [address] Blood 08/02/2023 7:12 AM CDT 08/02/2023 7:14 AM CDT Dewayne Nowak MD LAB BLOOD ORDERABLES Performing Organization Address [facility] [place] [address] * (ABNORMAL) Glucose Level (08/02/2023 7:12 AM CDT) Only the most recent of9 resultswithin the time period is included. [facility] Glucose Level 105(H) 70 - 99 mg/dL [facility] [employer] [place] Comment: Effective 05/12/16, the glucose reference intervals have been updated based on [place] [employer] guidelines (Standards of Medical Care in Diabetes 2016. Diabetes Care 2016; 39: S13-S22). Fasting blood glucose: Normal: 70-99 mg/dL Impaired fasting glucose (increased risk for diabetes or pre-diabetes): 100-125 mg/dL Diabetes mellitus: >/=126 mg/dL Random blood glucose: Normal: 70-199 mg/dL Note: Random glucose >100 mg/dL is associated with increased risk for diabetes Testing Performed at [facility], [address] [place] [address] Blood 08/02/2023 7:12 AM CDT 08/02/2023 7:14 AM CDT Dewayne Nowak MD LAB BLOOD ORDERABLES Performing Organization Address [facility] [place] [address] * Calcium Level (08/02/2023 7:12 AM CDT) Only the most recent of9 resultswithin the time period is included. Calcium Lvl 8.9 8.4 - 10.2 mg/dL [employer] Comment:Testing Performed at [facility], [address] [place] [address] Blood 08/02/2023 7:12 AM CDT 08/02/2023 7:14 AM CDT Dewayne Nowak MD LAB BLOOD ORDERABLES Performing Organization Address [facility] [place] [address] * Albumin Level (08/02/2023 7:12 AM CDT) Only the most recent of9 resultswithin the time period is included. Albumin Lvl 4.2 3.5 - 5.2 gm/dL [employer] Comment:Testing Performed at [facility], [address] [place] [address] Blood 08/02/2023 7:12 AM CDT 08/02/2023 7:14 AM CDT Dewayne Nowak MD LAB BLOOD ORDERABLES Performing Organization Address [facility] Co de Phone Number [facility] [employer] [address] [address] * Electrolyte Panel (08/02/2023 7:12 AM CDT) Only the most recent of9 resultswithin the time period is included. [facility] Sodium Lvl 142 136 - 145 mEq/L [facility] Comment:Testing Performed at [facility], [address] [place], [place] [id number] Potassium Lvl 4.5 3.5 - 5.1 mEq/L [facility] Comment:Testing Performed at [facility], [address] [place], [place] [id number] Chloride 104 98 - 107 mEq/L [facility] Comment:Testing Performed at [facility], [address] [place] [address] CO2 27 22 - 29 mEq/L [facility] Comment:Testing Performed at [facility], [address] [place] [address] Anion Gap 11 4 - 14 mEq/L [facility] Comment:Testing Performed at [facility], [address] [place] [address] Blood 08/02/2023 7:12 AM CDT 08/02/2023 7:14 AM CDT Dewayne Nowak MD LAB BLOOD ORDERABLES Performing Organization Address City/[facility]/ZIP Co de Phone Number [address] [address] * HIV 1 RNA Quantification (07/26/2023 10:36 AM CDT) [facility] HIV 1 RNA PCR-Clement Undetected Undetected cpy/mL [facility] Comment: Result in log copies/mL is Undetected. ADDITIONAL INFORMATION The quantification range of this assay is 20 to 10,000,000 copies/mL (1.30 log to 7.00 log copies/mL). Testing was performed using the brent HIV-1 test ([employer] with the brent 6800 System. This test has been modified from the supervisor screen making's instructions. Its performance characteristics were determined by [facility] in a manner consistent with CLIA requirements. This test has not been cleared or approved by the U.S. Food and Drug Administration. Test Performed by: [place] [address] Child Care Provider: Chase Thornton M.D. Ph.D.; CLIA# [id number] Blood 07/26/2023 10:3 6 AM CDT 07/26/2023 10:47 AM CDT Thuy Odonnell APRN LAB BLOOD ORDERABL ES Performing Organization Address [facility]/ZIP Co de Phone Number [facility] Unless otherwise noted, all lab tests performed by: Division of Pathology and Laboratory Medicine [address] [place] [address] * HTLV I/II Ab Screen with Confirm (07/26/2023 8:26 AM CDT) [facility] HTLV I/II Ab Screen-Sullivan Negative Negative [facility] Comment: Test Performed by: [address] [address] Child Care Provider: Chase Thornton M.D. Ph.D.; CLIA# [id number] Blood 07/26/2023 8:26 AM CDT 07/26/2023 10:32 AM CDT Narrative [facility] - 07/28/2023 1:03 PM CDT in TRANSIT to [facility] Thuy Odonnell APRN LAB BLOOD ORDERABL ES Performing Organization Address [facility]/ZIP Co de Phone Number [facility] Unless otherwise noted, all lab tests performed by: Division of Pathology and Laboratory Medicine [address] [place] [address] * Rapid Plasma Reagin (RPR) [Syphilis SCREENING] (07/26/2023 8:26 AM CDT) [facility] RPR Screening Non Reactive Non Reactive [facility] Blood 07/26/2023 8:26 AM CDT 07/26/2023 4:24 PM CDT Thuy Odonnell APRN LAB BLOOD ORDERABL ES [facility] [address] [place] [address] * TMP RPR Path Interpretation (07/26/2023 8:26 AM CDT) [facility] TMP RPR Path Interpretation The Rapid Plasma Reagin (RPR) assay is negative. If a syphilis infection is suspected, please perform a Treponemal specific screening assay. [facility] Comment: [place] [id number] Dictated by: [place] [id number] Dictated Date/Time: 07.27.2023 9:27 AM CDT Transcribed Date/Time: 07.27.2023 9:27 AM CDT Electronically Signed By: [place] [id number] on 07.27.2023 9:27 AM C Blood 07/26/2023 8:26 AM CDT 07/26/2023 4:24 PM CDT Thuy Odonnell APRN LAB BLOOD ORDERABL ES [facility] [address] [place] [address] * HIV 1/2 Antigen/Antibody, Fourth Gen W/RFL (07/26/2023 8:26 AM CDT) HIV Ag/Ab, 4TH Gen NON-REACT LALO NON-REACT LALO [facility] Comment: HIV-1 antigen and HIV-1/HIV-2 antibodies were not detected. There is no laboratory evidence of HIV infection. PLEASE NOTE: This information has been disclosed to you from records whose confidentiality may be protected by state law. If your state requires such protection, then the state law prohibits you from making any further disclosure of the information without the specific written consent of the person to whom it pertains, or as otherwise permitted by law. A general authorization for the release of medical or other information is NOT sufficient for this purpose. For additional information please refer to http://education.PartyWithMe/faq/VBJ402 (This link is being provided for informational/ educational purposes only.) The performance of this assay has not been clinically validated in patients less than 2 years old. Lab test performed by: Lab Mnemonic: [employer] [address] [address] MARKELL CLARKE MD,PHD. Blood 07/26/2023 8:26 AM CDT 07/26/2023 12:29 PM CDT Thuy Odonnell APRN LAB BLOOD ORDERABL ES Performing Organization Address City/[facility] Co de Phone Number [facility] * Hepatitis C Virus Antibody (07/26/2023 8:26 AM CDT) Pathologist [facility] HCVAb. Non Reactive Non Reactive [facility] Comment: Antibody detection in the immunocompromised and immunosuppressed population may be delayed or absent entirely. Therefore serial testing, correlation with other clinical findings, and supplemental testing (if available) should be taken into consideration when interpreting the results. Blood 07/26/2023 8:26 AM CDT 07/26/2023 10:48 AM CDT Thuy Odonnell APRN LAB BLOOD ORDERABL ES [facility] Unless otherwise noted, all lab tests performed by: Division of Pathology and Laboratory Medicine [address] [place] [address] * Hepatitis B Total Ig Core Ab (SCREENING) (anti-HBc total Ig; HBcAb total Ig) (07/26/2023 8:26 AM CDT) HBcAb. Non Reactive Non Reactive [facility] Blood 07/26/2023 8:26 AM CDT 07/26/2023 10:48 AM CDT Thuy Odonnell APRN LAB BLOOD ORDERABL ES [facility] Unless otherwise noted, all lab tests performed by: Division of Pathology and Laboratory Medicine [address] [place] [address] * CMV Antibody IgG + IgM - Pathologist Review (07/26/2023 8:26 AM CDT) CMV Panel GA Positive IgG with low IgM suggests previous infection. IVIG can give false positivity. High titers of IgG can give false negative IgM. Therefore, active disease is possible but less likely with this pattern. Reviewed and Electronically signed by Pathologist: Naomi Casarez MD, PhD #[id number] [facility] Comment: Test performed by an immunoassay intended for the qualitative detection of IgG and IgM antibodies to Cytomegalovirus (CMV) in human serum. When equivocal results are obtained, another specimen should be collected 10-14 days later. NAOMI CASAREZ MD, PhD - [id number] Dictated by: NAOMI CASAREZ MD, PhD - [id number] Dictated Date/Time: 08.01.2023 14:36 PM CDT Transcribed Date/Time: 08.01.2023 14:36 PM CDT Electronically Signed By: NAOMI CASAREZ MD, PhD - [id number] on 08.01.2023 14:36 PM Blood 07/26/2023 8:26 AM CDT 07/28/2023 9:22 AM CDT Thuy Odonnell APRN MICROBIOLOGY - GEN ERAL ORDERABLES Performing Organization Address [facility] Co de Phone Number [facility] Unless otherwise noted, all lab tests performed by: Division of Pathology and Laboratory Medicine [address] [place] [address] * (ABNORMAL) CMV Antibody IgG + IgM (07/26/2023 8:26 AM CDT) Pathologist [facility] CMV IgM Int Negative Negative [facility] CMV IgG Int Positive(A) Negative [facility] Blood 07/26/2023 8:26 AM CDT 07/26/2023 12:41 PM CDT Thuy Odonnell APRN MICROBIOLOGY - GEN ERAL ORDERABLES Performing Organization Address [facility] Co de Phone Number [facility] Unless otherwise noted, all lab tests performed by: Division of Pathology and Laboratory Medicine [address] [place] [address] * Hepatitis B Surface Ag (07/26/2023 8:26 AM CDT) Pathologist [facility] HBsAg. Non Reactive Non Reactive [facility] Blood 07/26/2023 8:26 AM CDT 07/26/2023 10:48 AM CDT Thuy Odonnell APRN LAB BLOOD ORDERABL ES Performing Organization Address [facility] Co de Phone Number [facility] Unless otherwise noted, all lab tests performed by: Division of Pathology and Laboratory Medicine [address] [place] [address] * Immunoelectrophoresis Path Review (07/18/2023 9:28 AM CDT) Only the most recent of2 resultswithin the time period is included. [facility] MELISSA Path Int The follow-up serum protein immunofixation electrophoretic patterns obtained with the use of antisera against IgG, IgA, IgM, bound [place] and bound Lambda light chain proteins are positive for an IgA lambda monoclonal gammopathy. A small IgG kappa band is also present. Correlation with the clinical findings is recommended to determine the significance of this small band, as it may represent the presence of Daratumumab. [facility] Comment: MD Chilo LEWIS Dictated by: MD Chilo LEWIS Dictated Date/Time: 07.19.2023 12:04 PM CDT Transcribed Date/Time: 07.19.2023 12:04 PM CDT Electronically Signed By: MD Chilo LEWIS on 07.19.2023 12:04 PM Blood 07/18/2023 9:28 AM CDT 07/18/2023 12:09 PM CDT Dewayne Nowak MD LAB BLOOD ORDERABLES [facility] Unless otherwise noted, all lab tests performed by: Division of Pathology and Laboratory Medicine [address] [place] [address] * Protein Electrophoresis Path Review (07/18/2023 9:28 AM CDT) Only the most recent of2 resultswithin the time period is included. SPE Path Interp The follow-up serum protein electrophoretic pattern shows a small protein peak in the gamma region, in the same location as the previously identified paraprotein 2 peak [facility] Comment: MD Chilo LEWIS Dictated by: MD Chilo LEWIS Dictated Date/Time: 07.19.2023 12:04 PM CDT Transcribed Date/Time: 07.19.2023 12:04 PM CDT Electronically Signed By: MD Chilo LEWIS on 07.19.2023 12:04 PM Blood 07/18/2023 9:28 AM CDT 07/18/2023 12:09 PM CDT Dewayne Nowak MD LAB BLOOD ORDERABLES [facility] Unless otherwise noted, all lab tests performed by: Division of Pathology and Laboratory Medicine [address] [place] [address] * MLEISSA (07/18/2023 9:28 AM CDT) Only the most recent of4 resultswithin the time period is included. MELISSA AL + AL MI MD [facility] Blood 07/18/2023 9:28 AM CDT 07/18/2023 10:23 AM CDT Dewayne Nowak MD LAB BLOOD ORDERABLES Performing Organization Address [facility] de Phone Number [facility] Unless otherwise noted, all lab tests performed by: Division of Pathology and Laboratory Medicine [address] [place] [address] * (ABNORMAL) Serum Protein Electrophoresis (07/18/2023 9:28 AM CDT) Only the most recent of4 resultswithin the time period is included. TOT PROTEIN 6.4 6.4 - 8.3 gm/dL [facility] Albumin 4.0 3.6 - 5.4 gm/dL [facility] Alpha 1 Globulin 0.3 0.2 - 0.4 gm/dL [facility] Alpha 2 Globulin 0.9 0.5 - 1.0 gm/dL [facility] Beta Globulin 0.9 0.5 - 1.1 gm/dL [facility] Gamma Globulin 0.3(L) 0.7 - 1.6 gm/dL [facility] Paraprotein1 see note 0.0 - 0.0 gm/dL [facility] Paraprotein2 0.1(H) 0.0 - 0.0 gm/dL [facility] Blood 07/18/2023 9:28 AM CDT 07/18/2023 10:23 AM CDT Dewayne Nowak MD LAB BLOOD ORDERABLES [facility] Unless otherwise noted, all lab tests performed by: Division of Pathology and Laboratory Medicine [address] [place] [address] * Urine MELISSA Path Review (07/18/2023 4:00 AM CDT) Only the most recent of2 resultswithin the time period is included. Pathologist [facility] UIFE Path Int The follow-up urine protein immunofixation electrophoretic patterns obtained with the use of antisera against IgG, IgA, IgM, bound kappa and bound lambda light chains, free kappa and free lambda light chains do not show definitive evidence of a Bence-Streeter proteinuria. 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 Pathologist [facility] U ProE Path Int The follow-up urine protein electrophoretic pattern does not show definitive evidence of a Bence-Streeter protein peak. 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 Total Volume 3,300(H) 1,200 - 1,500 mL/24 h [facility] Hrs Collected 24 [facility] Start Date 07/17/2023 [facility] End Date 07/18/2023 [facility] U24 Comment [id number] [facility] Urine 24 Hr 07/18/2023 4:00 AM CDT 07/18/2023 11:30 AM CDT Dewayne Nowak MD URINE ORDERABLES [facility] Unless otherwise noted, all lab tests performed by: Division of Pathology and Laboratory Medicine [address] [place] [address] * Protein Electrophoresis Urine (07/18/2023 4:00 AM CDT) Only the most recent of2 resultswithin the time period is included. U Albumin % 31.6 % [facility] U Globulin% 68.4 % [place] [facility] Urine 24 Hr 07/18/2023 4:00 AM CDT 07/18/2023 12:19 PM CDT Dewayne Nowak MD URINE ORDERABLES Performing Organization Address [facility] Co de Phone Number [facility] Unless otherwise noted, all lab tests performed by: Division of Pathology and Laboratory Medicine [address] [place] [phone] * MELISSA Urine (07/18/2023 4:00 AM CDT) Only the most recent of2 resultswithin the time period is included. Pathologist [facility] UIFE No BJP Seen [facility] Urine 24 Hr 07/18/2023 4:00 AM CDT 07/18/2023 12:19 PM CDT Dewayne Nowak MD URINE ORDERABLES Performing Organization Address [facility] Co de Phone Number [facility] Unless otherwise noted, all lab tests performed by: Division of Pathology and Laboratory Medicine [address] [place] [address] * Clot Expiration Date (06/21/2023 12:31 PM CDT) Only the most recent of2 resultswithin the time period is included. [facility] T & S Expiration 06/24/2023 [facility] Blood 06/21/2023 12:3 1 PM CDT 06/21/2023 1:19 PM CDT Dewayne Nowak MD BLOOD BANK TEST ORDE RABLES Performing Organization Address [facility] Co de Phone Number [facility] Unless otherwise noted, all lab tests performed by: Division of Pathology and Laboratory Medicine [address] [place] [address] * TMP Interpretation RBC Pheno by Molecular Methods (06/21/2023 12:31 PM CDT) [facility] TMP Interp RBC Molec Method The patient is negative for the following RBC antigens by molecular genotype method. Allo-antibodie s against them can be potentially form if exposed: E (big E), K (KEL1), Kpa, Jsa, Jka, S (big S). Hemoglobin S is negative. Testing performed at [facility], [address] [place] [address], [address]. [facility] Comment: MD Chilo RESENDEZ [id number] Dictated by: MD Chilo RESENDEZ [id number] Dictated Date/Time: 06.29.2023 13:28 PM CDT Transcribed Date/Time: 06.29.2023 13:28 PM CDT Electronically Signed By: MD Chilo RESENDEZ [id number] on 06.29.2023 13:28 PM Blood 06/21/2023 12:3 1 PM CDT 06/21/2023 1:19 PM CDT Dewayne Nowak MD BLOOD BANK TEST AMANDA GREEN [facility] Organization Address City/State/ZIP Co de Phone Number [facility] Unless otherwise noted, all lab tests performed by: Division of Pathology and Laboratory Medicine [address] [place] [address] * TMP Interpretation Antibody Screen Negative (06/21/2023 12:31 PM CDT) Only the most recent of2 resultswithin the time period is included. TMP Auto Neg ABSC Interp At the present time, patient plasma shows no evidence of RBC alloantibodi es. [facility] Comment: MD Chilo BURTON [id number] Dictated by: MD Chilo BURTON6 Dictated Date/Time: 06.22.2023 10:24 AM CDT Transcribed Date/Time: 06.22.2023 10:24 AM CDT Electronically Signed By: GITA ZURITA MD - [id number] on 06.22.2023 10:24 AM Blood 06/21/2023 12:3 1 PM CDT 06/21/2023 1:19 PM CDT Dewayne Nowak MD BLOOD BANK TEST ORDAngie GREEN [facility] Unless otherwise noted, all lab tests performed by: Division of Pathology and Laboratory Medicine [address] [place] [phone] * RBC Antigens Molecular Methods (06/21/2023 12:31 PM CDT) Phenotype c+. [facility] Phenotype Kpa- [facility] Phen[facility] LWa+ [facility] Phen[facility] C+ [facility] Phenotype Fyb+ [facility] Phenotype A1(TNP) [facility] Phenotype Jkb+ [facility] Phen[facility] k+. [facility] Phenotype s+. [facility] Phenotype Fya+ [facility] Phenotype Kpb+ [facility] Phenotype E[facility] Phenotype N+ [facility] Phenotype Jka- [facility] Phenotype K- [facility] Phenotype LWb+ [facility] Phenotype e+. [facility] Phenotype Jsa- [facility] Phenotype HgbS- [facility] Phenotype M+ [facility] Phenotype S- [facility] Phenotype Jsb+ [facility] [place] Blood 06/21/2023 12:3 1 PM CDT 06/21/2023 1:19 PM CDT Dewayne Nowak MD BLOOD BANK TEST AMANDA GREEN Performing Organization Address City/[facility]/ZIP Co de Phone Number [facility] Unless otherwise noted, all lab tests performed by: Division of Pathology and Laboratory Medicine [address] [place] [phone] * ABORh (06/21/2023 12:31 PM CDT) Only the most recent of2 resultswithin the time period is included. Pathologist [facility] ABORh. O POS MI MD [facility]ARR[facility] Blood 06/21/2023 12:3 1 PM CDT 06/21/2023 1:19 PM CDT Dewayne Nowak MD BLOOD BANK TEST AMANDA PACHECOKIARA Performing Organization Address [facility] Co de Phone Number [facility] Unless otherwise noted, all lab tests performed by: Division of Pathology and Laboratory Medicine [address] [place] [phone] * Antibody Screen (06/21/2023 12:31 PM CDT) Only the most recent of2 resultswithin the time period is included. [facility] ABSC. Negative ABSC [facility] Blood 06/21/2023 12:3 1 PM CDT 06/21/2023 1:19 PM CDT Dewayne Nowak MD BLOOD BANK TEST AMANDA GREEN Performing Organization Address [facility] Co de Phone Number [facility] Unless otherwise noted, all lab tests performed by: Division of Pathology and Laboratory Medicine [address] [place] [phone] * SPIROMETRY W/O DILATORS, DLCO AND BODY PLETHSMOGRAPHIC LUNG VOLUMES (06/21/2023 12:00 PM CDT) [facility] FVC (L) pre 3.944 3.475 - 5.178 L 06/21/2023 12:01 PM CDT [facility] FEV1 (L) pre 3.078 2.574 - 4.013 L 06/21/2023 12:01 PM CDT [facility] FEV1/FVC (%) pre 78.049 66.405 - 85.761 % 06/21/2023 12:01 PM CDT [facility] DLCO_SB ml/(min*mmHg) 23.061 16.505 - 33.092 ml/(min*mm Hg) 06/21/2023 12:01 PM CDT [facility] DLCOc_SB ml/(min*mmHg) 22.996 16.505 - 33.092 ml/(min*mm Hg) 06/21/2023 12:01 PM CDT [facility] TLC (L) 5.749 5.351 - 7.654 L 06/21/2023 12:01 PM CDT [facility] RV (L) 1.805 1.599 - 2.947 L 06/21/2023 12:01 PM CDT [facility] RV/TLC (%) 31.397 27.598 - 45.562 % 06/21/2023 12:01 PM CDT [facility] FVC (% pred) pre 91 % 06/21/2023 12:01 PM CDT [facility] FEV1 (%pred) pre 93 % 06/21/2023 12:01 PM CDT [facility] FEV1/FVC (% pred) pre 103 % 06/21/2023 12:01 PM CDT [facility] TLC (% pred) 88 % 06/21/2023 12:01 PM CDT [facility] RV (% pred) 79 % 06/21/2023 12:01 PM CDT [facility] RV/TLC (% pred) 86 % 12:01 PM CDT [facility] DLCO_SB (% pred) 93 % 06/21/2023 12:01 PM CDT [facility] DLCOc_SB (% pred) 93 % 06/21/2023 12:01 PM CDT [facility] 06/21/2023 11:0 6 AM CDT Dewayne Nowak MD PFT ORDERABLES [facility] * Echocardiogram 2D Complete (06/21/2023 11:28 AM CDT) [facility] 10:4 7 AM CDT Narrative [facility] - 06/21/2023 12:04 PM CDT Echocardiographic Report Interpretation Summary A complete two-dimensional transthoracic echocardiogram was performed (2D, M- mode, Doppler and color flow Doppler). The study was technically adequate and no significant change is noted compared to the previous study. Normal left ventricular size and systolic function. LV ejection fraction calculated using the bi-plane method of disks is 66 %. The right ventricle is normal in size and function. Right ventricular systolic pressure is normal. There is no pericardial effusion. Left Ventricle: Normal left ventricular size and systolic function. LV ejection fraction calculated using the bi-plane method of disks is 66 %. I WMSI = 1.00 % Normal = 100 Normal GLS Segments Size X - Cannot 2 - 1-2 small Interpret 1 - Normal Hypokinetic 3 - Akinetic 4 - Dyskinetic3- 5 moderate 5 - Aneurysmal 6-14 large 15-16 diffuse Cardiac Mechanics/Speckle Tracking Imaging: Normal global longitudinal peak systolic value. Strain Imaging was performed; GLPS avg = -19.6%. Diastology: The transmitral spectral Doppler flow pattern is suggestive of impaired LV relaxation. Right Ventricle: The right ventricle is normal in size and function. Atria: Atria are normal in size. Mitral Valve: The mitral valve is grossly normal. Tricuspid Valve: The tricuspid valve is not well visualized, but is grossly normal. There is trace tricuspid regurgitation. Right ventricular systolic pressure is normal. Aortic Valve: The aortic valve is trileaflet. The aortic valve opens well. No aortic regurgitation is present. Pulmonic Valve: The pulmonic valve is not well visualized. Trace pulmonic valvular regurgitation. Great Vessels: The aortic root is normal size. The inferior vena cava demonstrates normal size and normal respiratory variation. Pericardium/Pleural: There is no pericardial effusion. MMode/2D Measurements IVSd: 1.0 cm LVIDd: 4.1 cm LVIDs: 3.2 cm LVPWd: 1.0 cm FS: 22.0 % Ao root diam: 3.0 cm Ao root area: 7.0 cm2 LA dimension: 3.8 cm LVOT diam: 2.2 cm EDV(MOD-A4C): 84.9 ml ESV(MOD-A4C): 29.0 ml LVOT area: 3.7 cm2 EF(MOD-A4C): 65.9 % EDV(MOD-A2C): 89.5 ml ESV(MOD-A2C): 30.5 ml EDV(MOD-bp): 87.1 ml EF(MOD-A2C): 65.9 % ESV(MOD-bp): 29.8 ml EF(MOD-bp): 65.8 % LAV(MOD-A2C): 41.2 ml LAV(MOD-A4C): 52.9 ml EDV (MOD-bp) Index: 42.0 ml/m2 LAV(MOD-bp): 48.0 ml LAV(MOD-bp) Indexed: 23.1 ml/m2 ESV (MOD-bp) Index: 14.4 ml/m2 RWT: 0.51 cm TAPSE (>1.6): 2.3 cm Doppler Measurements MV E max ama: 78.1 cm/sec MV V2 max: 100.2 cm/sec MV A max ama: 93.2 cm/sec MV max P.0 mmHg MV E/A: 0.84 MV V2 mean: 56.9 cm/sec MV mean P.5 mmHg MV V2 VTI: 24.1 cm MVA(VTI): 3.2 cm2 MV dec time: 0.18 sec Ao V2 max: 131.9 cm/sec Ao max P.0 mmHg Ao V2 mean: 91.4 cm/sec Ao mean P.7 mmHg Ao V2 VTI: 23.7 cm EMY(I,D): 3.3 cm2 EMY(V,D): 3.1 cm2 LV V1 max P.8 mmHg SV(LVOT): 77.2 ml LV V1 mean P.5 mmHg LV V1 max: 109.1 cm/sec LV V1 mean: 73.5 cm/sec LV V1 VTI: 20.8 cm Med Peak E' Ama: 4.3 cm/sec Lat Peak E' Ama: 6.6 cm/sec TR max ama: 230.2 cm/sec EMY Index (I,D): 1.6 TR max P.2 mmHg EMY Index (V,D): 1.5 Dimensionless Index: 0.83 E/e' (avg): 14.3 E/e' (lat): 11.7 E/e' (sept): 18.3 Procedure Note Anahy Morton MD - 06/21/2023 Echocardiographic Report Interpretation Summary A complete two-dimensional transthoracic echocardiogram was performed (2D,M- mode, Doppler and color flow Doppler). The study was technicallyadequate and no significant change is noted compared to the previousstudy. Normal left ventricular size and systolic function. LV ejection fraction calculated using the bi-plane method of disks is 66%. The right ventricle is normal in size and function. Right ventricular systolic pressure is normal. There is no pericardial effusion. Left Ventricle: Normal left ventricular size and systolic function. LV ejection fractioncalculated using the bi-plane method of disks is 66 %. I WMSI = 1.00 % Normal = 100 Normal GLS Segments Size X - Cannot 2 - 1-2small Interpret 1 - Normal Hypokinetic 3 - Akinetic 4 - Dyskinetic3-5moderate 5 - Aneurysmal6-14 large 15-16 diffuse Cardiac Mechanics/Speckle Tracking Imaging: Normal global longitudinal peak systolic value. Strain Imaging wasperformed; GLPS avg = -19.6%. Diastology: The transmitral spectral Doppler flow pattern is suggestive of impaired LVrelaxation. Right Ventricle: The right ventricle is normal in size and function. Atria: Atria are normal in size. Mitral Valve: The mitral valve is grossly normal. Tricuspid Valve: The tricuspid valve is not well visualized, but is grossly normal. Thereis trace tricuspid regurgitation. Right ventricular systolic pressure isnormal. Aortic Valve: The aortic valve is trileaflet. The aortic valve opens well. No aorticregurgitation is present. Pulmonic Valve: The pulmonic valve is not well visualized. Trace pulmonic valvularregurgitation. Great Vessels: The aortic root is normal size. The inferior vena cava demonstrates normalsize and normal respiratory variation. Pericardium/Pleural: There is no pericardial effusion. MMode/2D Measurements IVSd: 1.0 cmLVIDd: 4.1 cm LVIDs: 3.2 cm LVPWd: 1.0 cm FS: 22.0 %Ao root diam: 3.0 cm Ao root area: 7.0 cm2 LA dimension: 3.8 cm LVOT diam: 2.2 cmEDV(MOD-A4C): 84.9 ml ESV(MOD-A4C): 29.0 ml LVOT area: 3.7 cm2EF(MOD-A4C): 65.9 % EDV(MOD-A2C): 89.5 ml ESV(MOD-A2C): 30.5 mlEDV(MOD-bp): 87.1 ml EF(MOD-A2C): 65.9 %ESV(MOD-bp): 29.8 ml EF(MOD-bp): 65.8 % LAV(MOD-A2C): 41.2 ml LAV(MOD-A4C): 52.9 mlEDV (MOD-bp) Index: 42.0 ml/m2 LAV(MOD-bp): 48.0 ml LAV(MOD-bp) Indexed: 23.1 ml/m2 ESV (MOD-bp) Index: 14.4 ml/m2RWT: 0.51 cm TAPSE (>1.6): 2.3 cm Doppler Measurements MV E max ama: 78.1 cm/secMV V2 max: 100.2 cm/sec MV A max ama: 93.2 cm/secMV max P.0 mmHg MV E/A: 0.84MV V2 mean: 56.9 cm/sec MV mean P.5 mmHg MV V2 VTI: 24.1 cm MVA(VTI): 3.2 cm2 MV dec time: 0.18 secAo V2 max: 131.9 cm/sec Ao max P.0 mmHg Ao V2 mean: 91.4 cm/sec Ao mean P.7 mmHg Ao V2 VTI: 23.7 cm EMY(I,D): 3.3 cm2 EMY(V,D): 3.1 cm2 LV V1 max P.8 mmHgSV(LVOT): 77.2 ml LV V1 mean P.5 mmHg LV V1 max: 109.1 cm/sec LV V1 mean: 73.5 cm/sec LV V1 VTI: 20.8 cm Med Peak E' Ama: 4.3 cm/secLat Peak E' Ama: 6.6 cm/sec TR max ama: 230.2 cm/secAVA Index (I,D): 1.6 TR max P.2 mmHg EMY Index (V,D): 1.5Dimensionless Index: 0.83 E/e' (avg): 14.3E/e' (lat): 11.7 E/e' (sept): 18.3 Dewayne Nowak MD CV ECHO ORDERABLES Performing Organization Address [facility] de Phone Number ISC[facility] * Dr. Prakash Prot Electrophoresis Path Review (06/10/2023 10:06 AM CDT) Pathologist [facility] SPE Path Interp The follow-up serum protein electrophoretic pattern shows barely discernible M-protein peaks in the junction of the beta and gamma regions. Please note that the small interval change between the current M-protein value and that of the previous study on 05/11/2023 falls within the expected imprecision limits of the testing methodology, consequently, these results should be correlated with other clinical findings. [facility] Comment: MD Chilo ESTRADA [id number] Dictated by: MD Chiol ESTRADA Dictated Date/Time: 06.12.2023 18:41 PM CDT Transcribed Date/Time: 06.12.2023 18:41 PM CDT Electronically Signed By: MD Chilo ESTRADA on 06.12.2023 18:41 PM Blood 06/10/2023 10:0 6 AM CDT 06/10/2023 3:18 PM CDT Halie Verduzco APRN LAB BLOOD ORDER MIREYA Performing Organization Address [facility] de Phone Number [facility] Unless otherwise noted, all lab tests performed by: Division of Pathology and Laboratory Medicine [address] [place] [phone] * Dr. Prakash MELISSA Path Review (06/10/2023 10:06 AM CDT) MELISSA Path Int The follow-up serum protein immunofixation electrophoretic patterns obtained with the use of antisera against IgG, IgA, IgM, bound [place] and bound Lambda light chain proteins are positive for an IgA lambda monoclonal gammopathy. [facility] Comment: MD Chilo ESTRADA [id number] Dictated by: MD Chilo ESTRADA [id number] Dictated Date/Time: 06.12.2023 18:41 PM CDT Transcribed Date/Time: 06.12.2023 18:41 PM CDT Electronically Signed By: MD Chilo ESTRADA [id number] on 06.12.2023 18:41 PM Blood 06/10/2023 10:0 6 AM CDT 06/10/2023 3:18 PM CDT Halie Verduzco APRN LAB BLOOD ORDER MIREYA Performing Organization Address City/[facility] Co de Phone Number [facility] Unless otherwise noted, all lab tests performed by: Division of Pathology and Laboratory Medicine [address] [place] [phone] * Interleukin-6 Final Report (06/10/2023 10:06 AM CDT) Only the most recent of3 resultswithin the time period is included. 06/10/2023 10:0 6 AM CDT Halie Verduzco APRN LAB BLOOD ORDER MIREYA Performing Organization Address City/State/[facility] Co de Phone Number [facility] Unless otherwise noted, all lab tests performed by: Division of Pathology and Laboratory Medicine [address] [place] [phone] * IR US GUIDED BIOPSY LYMPH NODE (05/24/2023 11:28 AM CDT) Anatomical Region Laterality Modality X-Ray Angiograph y, Ultrasound Narrative 05/24/2023 4:29 PM CDT Date of Procedure: 05/24/23 Attending Physician: Constantine Nowak MD Construction Laborer: None Pre Procedure Diagnosis: POEMS syndrome Post Procedure Diagnosis: Unchanged Indication: New mass / nodule for tissue diagnosis Protocol Number: N/A Title of Procedure: Percutaneous Ultrasound-Guided Biopsy Operative Findings: Percutaneous image-guided biopsy of 1.3cm right supraclavicular lymph node. Consent: The procedure, risks, indications and alternatives were explained. All questions were answered and informed consent was obtained. I have reviewed the history and physical dictated by the mid-level practitioner / fellow. Sedation/Anesthesia: None Procedure in Detail: A time out was performed prior to the start of the procedure and the correct patient, procedure, presence of consent, site, and side were confirmed with all members of the team. With the patient in the supine position, the skin overlying the area of interest was prepped and draped in the usual sterile fashion. Lidocaine 1% was used for local anesthesia. Using an anterior approach under Ultrasound image-guidance, a 17 gauge needle was advanced down to the right supraclavicular lymph node. An image was obtained and placed into the medical record. Samples were obtained for evaluation. Sampling: Cytology: A 22 gauge needle was used to obtain sample(s) for cytologic assessment. Total number of samples: 7 Core Biopsy: An 18 gauge needle used to obtain samples for surgical pathology evaluation. Total number of samples: 5 Specimens Disposition: Diagnostic Biopsy: The biopsy samples were submitted to pathology. Microbiology samples: Additional samples were obtained and submitted for microbiologic evaluation. Additional Comments: None Estimated Blood Loss: Minimal Immediate Complications: None Disposition: PACU Plan: No follow-up with Interventional Radiology required. Halie Verduzco APRN IMG IR ORDERABL ES * Fungal Culture w/ Smear (05/24/2023 11:14 AM CDT) Final Report No fungus isolated at 4 weeks. [facility] Calcofluor Stain No Fungi seen in direct smear Test performed by fluorescent stain methodology. [facility] Lymph Node 05/24/2023 11:1 4 AM CDT 05/24/2023 1:45 PM CDT Narrative [facility] - 06/21/2023 5:11 PM CDT Right cervical loose label 05/24/2023 1:02:59 PM CDT Cultures are held for 4 weeks before finalization. Constantine Nowak MD MICROBIOLOGY - GENER AL ORDERABLES [facility] Unless otherwise noted, all lab tests performed by: Division of Pathology and Laboratory Medicine [address] [place] [phone] * Tissue/FNA Culture w/ Gram Stain (05/24/2023 11:14 AM CDT) Final Report No growth [facility] Gram Stain Report No WBC's seen. No organisms seen. [facility] Lymph Node 05/24/2023 11:1 4 AM CDT 05/24/2023 1:45 PM CDT Narrative [facility] - 05/31/2023 8:04 AM CDT Right cervical loose label 05/24/2023 1:02:59 PM CDT Constantine Nowak MD MICROBIOLOGY - GENER AL ORDERABLES Performing Organization Address City/[facility]/ZIP Co de Phone Number [facility] Unless otherwise noted, all lab tests performed by: Division of Pathology and Laboratory Medicine [address] [place] [phone] * AFB Culture w/ Smear (05/24/2023 11:14 AM CDT) Final Report No acid fast bacteria isolated at 8 weeks. [facility] Acid Fast Stain Truant No Acid Fast Bacilli seen in direct smear [facility] Lymph Node 05/24/2023 11:1 4 AM CDT 05/24/2023 1:45 PM CDT Narrative [facility] - 07/20/2023 11:11 AM CDT Right cervical Cultures are held 8 weeks before finalization. Constantine Nowak MD MICROBIOLOGY - GENER AL ORDERABLES [facility] Unless otherwise noted, all lab tests performed by: Division of Pathology and Laboratory Medicine [address] [place] [id number] * Anaerobic Culture (05/24/2023 11:14 AM CDT) Final Report No Anaerobic Organisms isolated. [facility] Lymph Node 05/24/2023 11:1 4 AM CDT 05/24/2023 1:45 PM CDT Narrative [facility] - 06/03/2023 7:16 AM CDT Right cervical loose label 05/24/2023 1:02:59 PM CDT Constantine Nowak MD MICROBIOLOGY - GENER AL ORDERABLES [facility] Unless otherwise noted, all lab tests performed by: Division of Pathology and Laboratory Medicine [address] [place] [phone] * (ABNORMAL) Cytology Image-Guided FNA Interpretation (05/24/2023 10:53 AM CDT) Gross Description Specimens procured: 2 Diff Quik; 2 Pap Stain Slides 10 ml, slightly cloudy bloody fluid in RPMI 1 Cytogenetics 1 Flow 1 Cell Block Date/Time Placed in Formalin: 05/24/23 11:45 AM Size: 1.3 cm 05/27/2023 9:58 AM CDT [facility] Major Classification MALIGNANT(A) 05/27/2023 9:58 AM CDT [facility] Diagnosis Lymph node, right supraclavicular, fine needle aspiration: PLASMA CELL NEOPLASM 05/27/2023 9:58 AM CDT [facility] Comment Smears show frequent plasma cells in a background of polymorphous lymphocytes, while flow cytometry analysis shows an aberrant plasma cell population; for details, please see separate report ([id number]). Please see concurrently acquired core biopsy ([id number]) for further evaluation. 05/27/2023 9:58 AM CDT [facility] Retained/Biomark er Testing SR: 4 S, 1 CB Biomarker Testing MDL Cell Block: 300+ MD Pap: 2 MDL DQ: 0 FISH DQ: 1 05/27/2023 9:58 AM CDT [facility] Informational Points Some tests reported here may have been developed and performance characteristics determined by [facility] Pathology and Laboratory Medicine. These tests have not been specifically cleared or approved by the U.S. Food and Drug Administration. 05/27/2023 9:58 AM CDT [facility] Specimen obtained by fine needle aspiration procedure (specimen) (Lymph Node(s), Right, Supraclavicular) 05/24/2023 10:53 AM CDT 05/24/2023 11:17 AM CDT Halie Verduzco APRN LAB CYTOLOGY OR DERABLES [facility] [address] [place] [address], * Pathology Biopsy Interpretation (05/24/2023 10:53 AM CDT) Addendum 1 CD10 and BCL6 highlight B-cells in germinal centers that are negative for BCL2. The previous interpretation remains unchanged. 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 PET-CT scan from 05/11/2023 showed multiple hypermetabolic cervical and thoracic adenopathies and hypermetabolic osseous lesions (the spine, left humerus and right femur), worrisome for recurrent myeloma. Histologic sections show needle shaped fragments of lymphoid tissue with an atypical infiltrate composed of sheets of plasma cells. CD138 highlights plasma cells. [place] and lambda DANISH show lambda light chain restriction. CD20 highlights B-cells, predominantly in follicles. CD3 highlights T-cells. The overall findings are consistent with plasma cell neoplasm. 05/30/2023 12:[address] [facility] Gross Description A: Lymph node(s), right, supraclavicular, right supraclavicular lymph node biopsy: Multiple soft, lilly-white to brown tissue cores, 0.1 cm to 0.9 cm in length and 0.1 cm in diameter, entirely submitted in A1. ET 05/30/2023 12:[address] [facility] Disclaimer "Some tests reported here may have been developed and performance characteristics determined by [facility] Pathology and Laboratory Medicine. These tests have not been specifically cleared or approved by the U.S. Food and Drug Administration. If applicable, controls were reviewed and showed appropriate reactivity." 05/30/2023 12:[address] [facility] Tissue specimen (specimen) (Lymph Node(s), Right, Supraclavicular) 05/24/2023 10:53 AM CDT 05/24/2023 2:15 PM CDT Halie Verduzco APRN LAB PATHOLOGY O RDERABLES Performing Organization Address City/[facility]/ZIP Co de Phone Number [address] [id number], * FC MRD Myeloma Interpretation and Report (05/24/2023 10:53 AM CDT) Only the most recent of2 resultswithin the time period is included. 05/24/2023 10:5 3 AM CDT 05/24/2023 4:11 PM CDT Halie Verduzco APRN [facility] HP FLOW CYT OMETRY (HP FC) Performing Organization Address [facility]/ZIP Co de Phone Number [facility] Unless otherwise noted, all lab tests performed by: Division of Pathology and Laboratory Medicine [address] [place] [address] * Flow Cytometry Specimen Collection -Fine Needle Asp (05/24/2023 10:53 AM CDT) Only the most recent of2 resultswithin the time period is included. Pathologist Kristen Flow Cytometry (Received) Yes [facility] Comment: Test performed by: [facility] [address] [place] [address] Joshua Sue Link [id number] [facility] Fine Needle Asp (Lymph Node(s), Right, Supraclavicular) 05/24/2023 10:53 AM CDT 05/24/2023 4:11 PM CDT Halie Verduzco APRN, [facility] HP FC NONBL OOD COLLECTIONS Performing Organization Address City/[facility]/ZIP Co de Phone Number [facility] Unless otherwise noted, all lab tests performed by: Division of Pathology and Laboratory Medicine [address] [place] [address] * CG Myeloma FISH Tests Interpretation and Report (05/24/2023 9:16 AM CDT) Only the most recent of2 resultswithin the time period is included. 05/24/2023 9:16 AM CDT Halie Verduzco APRN, MDA HP CYTOGENE TICS (HP CG) Performing Organization Address City/[facility]/ZIP Co de Phone Number [facility] Unless otherwise noted, all lab tests performed by: Division of Pathology and Laboratory Medicine [address] [place] [address] * Cytogenetics Specimen Collection -Fine Needle Asp (05/24/2023 9:16 AM CDT) Only the most recent of2 resultswithin the time period is included. Pathologist Kristen Sue Link [id number] [phone] [facility] Cytogenetics (Received) Yes [facility] Fine Needle Asp 05/24/2023 9 :16 AM CDT 05/25/2023 9:16 AM CDT Halie Verduzco SLOOP CAPTAIN MDA HP CG NONBL OOD COLLECTIONS [facility] [place] Unless otherwise noted, all lab tests performed by: Division of Pathology and Laboratory Medicine [address] [place] [address] * Hematopathology Bone Marrow Interpretation (05/23/2023 10:48 AM CDT) Diagnosis Bone marrow, left posterior iliac crest, biopsy, clot section, touch imprint, and aspirate smears: PLASMA CELL NEOPLASM, REPRESENTING 5% OF MARROW CELLULARITY BY CD138 IMMUNOHISTOCHEMISTRY. 05/26/2023 2:17 PM CDT [facility] Comment History of POEMS syndrome diagnosed in 2019, 4 years status post transplant. Concurrent flow cytometry immunophenotypic studies show aberrant plasma cells that represent 0.3% of total analyzed events (see report [id number]). 05/26/2023 2:17 PM CDT [facility] Microscopic Description BONE MARROW BIOPSY Quality: Adequate; focal area with aspiration artifact Cellularity: 20-30% Megakaryocytes: Present in adequate numbers with normal morphology Infiltrate: Focal area with small clusters of plasma cells BONE MARROW CLOT Quality: Adequate with small particles present Cellularity: 30% Megakaryocytes: Present with normal morphology Infiltrate: None identified; scattered plasma cells BONE MARROW SMEARS/TOUCH PREPS Quality / cellularity: Limited smears with a few particles present; touch imprint with adequate cellularity Granulocytes: Complete maturation, no significant dysgranulopoiesis Erythrocytes: Complete maturation, no significant dyspoiesis Megakaryocytes: Present with unremarkable morphology Lymphocytes: Not increased with small, mature morphology Plasma cells: Not increased; scattered plasma cells with normal mature morphology 05/26/2023 2:17 PM CDT [facility] Stains on Biopsy CD138: highlight focal plasma cells clusters, representing overall 5% of marrow cellularity [place]/lambda IHC: the clusters of plasma cells are lambda positive; scattered kappa-positive plasma cells are present Congo red stain: negative for amyloid deposition 05/26/2023 2:17 PM CDT [facility] Stains on Aspirate Smear / Touch Preparation Iron stain: adequate sideroblastic iron present. No ring sideroblasts are seen. Storage iron cannot be assessed due to lack of particles 05/26/2023 2:[address] [facility] Gross Description B: Iliac crest, left posterior, biopsy Length: 0.9 cm Submitted in a single cassette for decalcification. DG C: Iliac crest, left posterior, clot Dimensions: 0.3 x 2.2 x 2.0 cm Specimen is entirely submitted in 1. DG 05/26/2023 2:[address] [facility] Disclaimer Medical necessity justification for the immunohistochemical stains that were needed in addition to the flow cytometric immunophenotypic studies for the best diagnosis possible is as follows: The flow cytometric studies are not clearly b2b sales representative of all the features requiring evaluation in this specimen. "Some tests reported here may have been developed and performance characteristics determined by [facility] Pathology and Laboratory Medicine. These tests have not been specifically cleared or approved by the U.S. Food and Drug Administration. If applicable, controls were reviewed and showed appropriate reactivity." 05/26/2023 2:[address] [facility] Peripheral Blood CBC w/ Differential 05/23/2023 WBC 8.7K/uL, hemoglobin 14.7 g/dL, MCV 89 fL, RDW 11.9 %, PLT 373 K/uL. A CBC differential reveals 66.4% neutrophils, 25.3% lymphocytes, 5.6% monocytes, 0.9% basophils, and 1.3% eosinophils. Peripheral blood smear shows normochromic normocytic red cells without significant anisopoikilocytosis. The white blood cells and platelets are normal in number and show unremarkable morphology. 05/26/2023 2:[address] [facility] Bone marrow specimen (specimen) (Iliac Crest, Left Posterior, Aspirate) Collection / Unknown 05/23/2023 10:48 AM CDT 05/23/2023 11:33 AM CDT Bone marrow specimen (specimen) (Iliac Crest, Left Posterior, Biopsy) Collection / Unknown 05/23/2023 10:48 AM CDT 05/23/2023 11:18 AM CDT Bone marrow specimen (specimen) (Iliac Crest, Left Posterior, Clot) 05/23/2023 10:48 AM CDT 05/23/2023 11:18 AM CDT Dewayne Nowak MD LAB PATHOLOGY ORDERA BLES [facility] [place] [address] [place] [address], [place] * (ABNORMAL) Hematopathology Bone Marrow Differential (05/23/2023 10:48 AM CDT) Method Touch Prep 05/26/2023 2:09 PM CDT [facility] Adequacy Satisfactory for evaluation 05/26/2023 2:09 PM CDT [facility] Total cells counted 200 05/26/2023 2:09 PM CDT [facility] BM Blast % 1 0 - 5 % 05/26/2023 2:09 PM CDT [facility] BM Progranulocyte % 1(L) 2 - 8 % 05/26/2023 2:09 PM CDT [facility] BM Myelocyte % 3(L) 5 - 20 % 05/26/2023 2:09 PM CDT [facility] BM Metamyelocyte % 11(L) 13 - 32 % 05/26/2023 2:09 PM CDT [facility] BM Granulocyte % 31(H) 7 - 30 % 05/26/20 23 2:09 PM CDT [facility] BM Eosinophil % 1 0 - 4 % 3 2:09 PM CDT [facility] BM Lymphocyte % 8 3 - 17 % 3 2:09 PM CDT [facility] BM Plasma Cell % 1 0 - 2 % 05/26/20 23 2:09 PM CDT [facility] BM Normoblast % 44(H) 7 - 32 % 3 2:09 PM CDT [facility] BM M:E Ratio 1.1(L) 3.0 - 4.0 05/26/2023 2:09 PM CDT [facility] Bone marrow specimen (specimen) (Iliac Crest, Left Posterior, Aspirate) Collection / Unknown 05/23/2023 10:48 AM CDT 05/23/2023 11:33 AM CDT Narrative [facility] - 05/26/2023 2:09 PM CDT DISCLAIMER Preliminary BM Diff may have been completed by a medical chemist or a hematopathology fellow and is subject to change. Any pathologist updates will be included on interpretation and appear in the final result. Please use caution in evaluating your patient based on preliminary results. The previously reported component Monocytes % is no longer being reported.The previously reported component Pronormoblasts % is no longer being reported. Dewayne Nowak MD LAB PATHOLOGY ORDERA BLES [facility] [place] [id number], * TP53 Collection, Nonblood (05/23/2023 10:41 AM CDT) Pathologist [facility] Molecular Diagnostics (Received) Yes [facility] Bone Marrow 05/23/2023 10:4 1 AM CDT 05/23/2023 1:09 PM CDT Narrative [facility] - 05/23/2023 1:54 PM CDT Please schedule prior to BMA/Bx Halie ROUSE MD NONBL OOD COLLECTIONS Performing Organization Address [facility] Co de Phone Number [facility] Unless otherwise noted, all lab tests performed by: Division of Pathology and Laboratory Medicine [address] [place] [id number] * KRAS Mutation Analysis Collection, Nonblood (05/23/2023 10:41 AM CDT) Pathologist [facility] Molecular Diagnostics (Received) Yes [facility] Bone Marrow 05/23/2023 10:4 1 AM CDT 05/23/2023 1:09 PM CDT Narrative [facility] - 05/23/2023 1:54 PM CDT Please schedule prior to BMA/Bx Halie ROUSE MD NONBL OOD COLLECTIONS Performing Organization Address City/[facility]/ZIP Co de Phone Number [facility] Unless otherwise noted, all lab tests performed by: Division of Pathology and Laboratory Medicine [address] [place] [id number] * BRAF Mutation Analysis Collection, Nonblood (05/23/2023 10:41 AM CDT) Pathologist [facility] Molecular Diagnostics (Received) Yes [facility] Bone Marrow 05/23/2023 10:4 1 AM CDT 05/23/2023 1:09 PM CDT Narrative [facility] - 05/23/2023 1:54 PM CDT Please schedule prior to BMA/Bx Halie Verduzco APRN, MDA HP MD NONBL OOD COLLECTIONS Performing Organization Address City/[facility]/ZIP Co de Phone Number [facility] Unless otherwise noted, all lab tests performed by: Division of Pathology and Laboratory Medicine [address] [place] [phone] * FC Myeloma Panel Collection, Nonblood (05/23/2023 10:41 AM CDT) Pathologist [facility] Flow Cytometry (Received) Yes [facility] Bone Marrow 05/23/2023 10:4 1 AM CDT 05/23/2023 11:37 AM CDT Narrative [facility] - 05/23/2023 11:39 AM CDT Please schedule prior to BMA/Bx Halie Verduzco APRN, MDA HP FC NONBL OOD COLLECTIONS Performing Organization Address City/[facility] Co de Phone Number [facility] Unless otherwise noted, all lab tests performed by: Division of Pathology and Laboratory Medicine [address] [place] [phone] * CG Myeloma FISH Panel Collection, Nonblood (05/23/2023 10:41 AM CDT) Pathologist [facility] Cytogenetics (Received) Yes [facility] Bone Marrow 05/23/2023 10:4 1 AM CDT 05/23/2023 1:18 PM CDT Narrative [facility] - 05/23/2023 1:25 PM CDT Please schedule prior to BMA/Bx Halie Verduzco APRN, MDA HP CG NONBL OOD COLLECTIONS [facility] Unless otherwise noted, all lab tests performed by: Division of Pathology and Laboratory Medicine [address] [place] [phone] * CG Chromosome Analysis Collection, Nonblood (05/23/2023 10:41 AM CDT) Pathologist [facility] Cytogenetics (Received) Yes [facility] Bone Marrow 05/23/2023 10:4 1 AM CDT 05/23/2023 1:18 PM CDT Narrative [facility] - 05/23/2023 1:25 PM CDT Please schedule prior to BMA/Bx Halie Verduzco APRN, MDA HP CG NONBL OOD COLLECTIONS Performing Organization Address City/[facility]/ZIP Co de Phone Number [facility] Unless otherwise noted, all lab tests performed by: Division of Pathology and Laboratory Medicine [address] [place] [phone] * CG Chromosome Analysis Interpretation and Report (05/23/2023 10:41 AM CDT) 05/23/2023 10:4 1 AM CDT Halie Verduzco APRN, MDA HP CYTOGENE TICS (HP CG) Performing Organization Address City/[facility]/ZIP Co de Phone Number [facility] Unless otherwise noted, all lab tests performed by: Division of Pathology and Laboratory Medicine [address] [place] [phone] * Molecular Diagnostics Specimen Collection -Bone Marrow (05/23/2023 10:41 AM CDT) Molecular Diagnostics (Received) Yes [facility] Joshua Ap Link [id number] [facility] Bone Marrow 05/23/2023 10:4 1 AM CDT 05/23/2023 1:09 PM CDT Halie Verduzco APRN, MDA HP MD NONBL OOD COLLECTIONS Performing Organization Address City/[facility]/ZIP Co de Phone Number [facility] Unless otherwise noted, all lab tests performed by: Division of Pathology and Laboratory Medicine [facility] [place] [address] * GA DIAGNOSTIC BONE MARROW BIOPSIES & ASPIRATIONS (05/23/2023 10:20 AM CDT) Bone marrow specimen (specimen) Narrative [facility] - 05/23/2023 10:20 AM CDT Zaina Mcduffie APRN 05/23/2023 1:02 PM Procedure: Bone Marrow Aspiration/Biopsy Date/Time: 05/23/2023 10:20 AM Provider Information: Performed by: Zaina Mcduffie APRN Authorized by: Halie Verduzco APRN Construction Laborer present: yes Construction Laborer: Yeimy Davis senior controller 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?: 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 not needed Patient Diagnosis: Pre-procedure diagnosis: POEMS Post-procedure diagnosis: unchanged Indication: Indication: evaluation of disease status Anesthesia: Anesthesia: local infiltration and see MAR for details Patient anesthetized by: advanced practice provider Local anesthetic: lidocaine 1% without epinephrine Anesthetic total (ml): 20 Sedation: Patient sedated?: patient not sedated Aspirate Site(s): Laterality: left Site location: posterior iliac crest Instrument(s) used: [place] needle Instruments placed by: advanced practice provider Biopsy Site(s): Laterality: left Site location: posterior iliac crest Instrument(s) used: [place] needle Instruments placed by: advanced practice provider Dressing: Dressing: compression bandage Post-Procedure Patient Assessment: Patient tolerance: well Estimated blood loss: none Complications/Observations: no complications Greater than 20ccs of Lidocaine given?: No Discharge/Disposition: Discharge instructions: verbal and patient verbalized understanding Patient discharged to: discharge to home Disposition mode: ambulatory Sample Disposition: Testing performed: flow cytometry, cytogenetics, molecular and pathology Stains performed: congo red, IHC, CD-138 and iron Research samples(s): yes Protocol #: [id number], [id number] Aspirate volume obtained (mL) - left: 25 Visual assessment for aspirate specimen adequacy - left: few particles Visual assessment for biopsy specimen adequacy (cm) - left: 1 Biopsy specimen integrity - left: whole Comments: Reviewed meds and allergies prior to procedure. Instructed the patient on the risks and post procedure instruction. Hemostasis achieved, no bleeding observed. Patient instructed to keep the area clean and dry for 48 hours, no showers or baths. The patient verbalized understanding. Dressing labeled with date, time, and my initials. Labels checked with Yeimy Davis and Zaina Mcduffie APRN Halie Verduzco APRN PROCEDURE/MINOR SURGICAL ORDERABLES Performing Organization Address [facility] Co de Phone Number [facility] Unless otherwise noted, all lab tests performed by: Division of Pathology and Laboratory Medicine [address] [place] [id number] * Peripheral Smear for Bone Marrow (05/23/2023 9:07 AM CDT) Peripheral Smear PSMEAR [facility] Blood 05/23/2023 9:07 AM CDT 05/23/2023 9:19 AM CDT Narrative [facility] - 05/23/2023 9:30 AM CDT This Lab Test should be linked to the Lab Visit Type - do not link this to a BMA visit type. The Peripheral Smear for Bone Marrow should be scheduled on the same day as the bone marrow procedure or within 48 hours of the bone marrow procedure. Please schedule prior to BMA/Bx Halie Verduzco APRN LAB BLOOD ORDER MIREYA Performing Organization Address [facility] Co de Phone Number [facility] Unless otherwise noted, all lab tests performed by: Division of Pathology and Laboratory Medicine [address] [place] [id number] * Prothrombin Time with INR (05/23/2023 9:07 AM CDT) PT 13.8 11.9 - 14.5 second(s) [facility] INR 1.05 0.87 - 1.12 [facility] Blood 05/23/2023 9:07 AM CDT 05/23/2023 9:17 AM CDT Narrative [facility] - 05/23/2023 9:48 AM CDT This lab cannot be scheduled at the following locations due to collection/proccessing restrictions: [facility] and [facility]. Melvina Swopes PA-C LAB BLOOD ORDERABLES [facility] [place] Unless otherwise noted, all lab tests performed by: Division of Pathology and Laboratory Medicine [facility] [place] [address] * PETCT Subsequent Treatment Strategy (05/11/2023 9:43 AM CDT) Anatomical Region Laterality Modality Whole Body Positron Emissio n Tomography (PET) 05/15/2023 10:3 2 PM CDT Impressions 05/15/2023 11:04 PM CDT 1. Multiple hypermetabolic cervical and thoracic adenopathies and hypermetabolic osseous lesions (the spine, left humerus and right femur) are worrisome for recurrent myeloma. Tissue diagnosis may be considered for confirmation. 2. Multiple sclerotic and lytic osseous lesions without hypermetabolism are consistent with treated myeloma. ACTIONABLE ITEMS/RECOMMENDATIONS: None. 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 He has been on observation since then Indication: Subsequent treatment strategy Comparison: 10/03/2019. Technique: Radiopharmaceutical: F-18 fluorodeoxyglucose 8.5 mCi was administered intravenously via left antecubital vein. To allow for distribution and uptake of radiotracer, the patient was asked to rest quietly for approximately 60-90 minutes. PET/CT imaging was performed from the vertex down to the feet. CT scanning was done for attenuation correction, image registration, and diagnosis with scan parameters optimized to minimize radiation exposure to the patient. SUV measurements are reported as maximum SUV based on body weight unless otherwise specified Findings: Head and Neck: There has been interval development of hypermetabolic adenopathy in the left level IIb (1.2 cm and SUV of 6.4 on image 82 and right level 5B (1.1 x 1.8 cm and SUV of 12.1 on image 95). The brain, orbits, paranasal sinuses, oropharynx, salivary glands and thyroids are unremarkable. Chest: Hypermetabolic lymphadenopathies are noted in the right infraclavicular station (1.2 cm and SUV of 7.0 on image 106), right axilla (1.1 cm and SUV of 6.0 on image 113), left paratracheal station (1 x 1.4 cm and SUV of 4.8 on image 115), the subcarina station (1.2 x 1.4 cm and SUV of 10.0 on image 131) and paraesophageal station (1 x 1.4 cm and SUV of 8.1 on image 139). No suspicious pulmonary nodule is identified. There is no pleural effusion nor pericardial effusion. Abdomen and Pelvis: There has been mild improvement of diffuse gastric uptake, likely related to gastritis. The liver, spleen, pancreas, gallbladder, adrenal glands, kidneys and prostate are unremarkable. No hypermetabolic lymphadenopathy is seen in the mesentery, retroperitoneum, iliac nor inguinal stations. Musculoskeletal: A new hypermetabolic lytic lesion with SUV of 8.1 is identified in the left humeral head on image 84. A new hypermetabolic lytic lesion in the T4 spinous process with SUV of 12.9 on image 124. Hypermetabolic right paraspinal soft tissues are also noted (1 x 2 cm and SUV of 9.5 at the right T5/T6 level on image 133). A hypermetabolic sclerotic lesion is identified at T12 with SUV of 6.1 on image 196. Focal hypermetabolism is also noted at the spinal process of L2 (SUV of 5.9 on image 209) and right proximal femur (SUV of 4.6 on image 315). These hypermetabolic lesions are worrisome for recurrence of myeloma. A stable nonhypermetabolic lytic lesion is again noted in the right temporal bone on image 39, unchanged from prior image 36. Degenerative changes are again seen in the joints of the shoulders, spine and hips. Slight improvement of nonhypermetabolic sclerotic lesions are again seen in the right posterior iliac spine and left posterior iliac bone. 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 He has been on observation sincethen Indication: Subsequent treatment strategy Comparison: 10/03/2019. Technique: Radiopharmaceutical: F-18 fluorodeoxyglucose 8.5 mCi was administeredintravenously via left antecubital vein. To allow for distribution anduptake of radiotracer, the patient was asked to rest quietly forapproximately 60-90 minutes. PET/CT imaging was performed from the vertexdown to the feet. CT scanning was done for attenuation correction, imageregistration, and diagnosis with scan parameters optimized to minimizeradiation exposure to the patient. SUV measurements are reported asmaximum SUV based on body weight unless otherwise specified Findings: Head and Neck: There has been interval development of hypermetabolic adenopathy in theleft level IIb (1.2 cm and SUV of 6.4 on image 82 and right level 5B (1.1x 1.8 cm and SUV of 12.1 on image 95). The brain, orbits, paranasal sinuses, oropharynx, salivary glands andthyroids are unremarkable. Chest: Hypermetabolic lymphadenopathies are noted in the right infraclavicularstation (1.2 cm and SUV of 7.0 on image 106), right axilla (1.1 cm and SUVof 6.0 on image 113), left paratracheal station (1 x 1.4 cm and SUV of 4.8on image 115), the subcarina station (1.2 x 1.4 cm and SUV of 10.0 onimage 131) and paraesophageal station (1 x 1.4 cm and SUV of 8.1 on [id number]). No suspicious pulmonary nodule is identified. There is no pleural effusionnor pericardial effusion. Abdomen and Pelvis: There has been mild improvement of diffuse gastric uptake, likely relatedto gastritis. The liver, spleen, pancreas, gallbladder, adrenal glands, kidneys andprostate are unremarkable. No hypermetabolic lymphadenopathy is seen in the mesentery,retroperitoneum, iliac nor inguinal stations. Musculoskeletal: A new hypermetabolic lytic lesion with SUV of 8.1 is identified in theleft humeral head on image 84. A new hypermetabolic lytic lesion in the Q4ctqqovd process with SUV of 12.9 on image 124. Hypermetabolic rightparaspinal soft tissues are also noted (1 x 2 cm and SUV of 9.5 at theright T5/T6 level on image 133). A hypermetabolic sclerotic lesion isidentified at T12 with SUV of 6.1 on image 196. Focal hypermetabolism isalso noted at the spinal process of L2 (SUV of 5.9 on image 209) and rightproximal femur (SUV of 4.6 on image 315). These hypermetabolic lesions areworrisome for recurrence of myeloma. A stable nonhypermetabolic lytic lesion is again noted in the righttemporal bone on image 39, unchanged from prior image 36. Degenerative changes are again seen in the joints of the shoulders, spineand hips. Slight improvement of nonhypermetabolic sclerotic lesions areagain seen in the right posterior iliac spine and left posterior iliacbone. IMPRESSION: 1. Multiple hypermetabolic cervical and thoracic adenopathies andhypermetabolic osseous lesions (the spine, left humerus and right femur)are worrisome for recurrent myeloma. Tissue diagnosis may be consideredfor confirmation. 2. Multiple sclerotic and lytic osseous lesions without hypermetabolismare consistent with treated myeloma. ACTIONABLE ITEMS/RECOMMENDATIONS: None. Thuy Odonnell APRN [facility] PETCT ORDERABL ES * Protein Electrophoresis Path Review (05/11/2023 7:21 AM CDT) SPE Path Interp The follow-up serum protein electrophoretic pattern shows an increase in the beta globulin fraction with a beta 2 peak measuring approximately 0.5 grams/dL. A small protein peak is also present in the gamma region, in the same location as the previously identified paraprotein 2 peak. The serum MELISSA studies are consistent with IgA lambda M-proteins in both locations. 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 Please note that due to comigration with normal beta globulins, sum total M-protein quantification may be less accurate and subject to increased inter-observer variability. [facility] Comment: MD Chilo CAMACHO [id number] Dictated by: MD Chilo CAMACHO Dictated Date/Time: 05.16.2023 20:59 PM CDT Transcribed Date/Time: 05.16.2023 20:59 PM CDT Electronically Signed By: MD Chilo CAMACHO on 05.16.2023 20:59 PM Blood 05/11/2023 7:21 AM CDT 05/11/2023 2:00 PM CDT Thuy Odonnell APRN LAB BLOOD ORDERABL ES [facility] Unless otherwise noted, all lab tests performed by: Division of Pathology and Laboratory Medicine [address] [place] [id number] * MELISSA Path Review (05/11/2023 7:21 AM CDT) MELISSA Path Int The follow-up serum protein immunofixation electrophoretic patterns obtained with the use of antisera against IgG, IgA, IgM, bound [place] and bound Lambda light chain proteins still suggest the presence of two IgA lambda bands in the beta-gamma junction region. These findings are consistent with a residual IgA lambda monoclonal gammopathy. [facility] Comment: MD Chilo [id number] Dictated by: MD Chilo CAMACHO Dictated Date/Time: 05.16.2023 20:59 PM CDT Transcribed Date/Time: 05.16.2023 20:59 PM CDT Electronically Signed By: MD Chilo CAMACHO on 05.16.2023 20:59 PM Blood 05/11/2023 7:21 AM CDT 05/11/2023 2:00 PM CDT Thuy Odonnell APRN LAB BLOOD ORDERABL ES [facility] Unless otherwise noted, all lab tests performed by: Division of Pathology and Laboratory Medicine [address] [place] [id number] after 11/03/2022 Advance Directives Latest Code Status on File Code Status Date Activated Date Inactivated Comments Full Code 04/05/2019 3:43 PM 04/09/2019 5:34 PM Code Status History Code Status Date Activated Date Inactivated Comments Full Code 04/04/2019 10:24 PM 04/05/2019 3:42 PM Full Code 03/11/2019 11:20 AM 03/26/2019 7:12 PM Care Teams Transportation Dispatch Manager Relationship Specialty Start Date End Date Jennie Rivera PCP - External Referring Hematology and Oncology 12/27/18 Dewayne Nowak MD [address] [place] [address] [id number] PCP - General Lymphoma and Myeloma 09/16/20 Daniel Rowe DDS [address] [place] [id number] Consulting Physician Dental Oncology 02/23/19 Jailene Gray MD [address] [place] [address] [id number] Consulting Physician Pain Management 03/07/19 Grant Bangura MD [address] [place] [address] [id number] Consulting Physician Cardiology 02/09/19
[2023-11-03 06:26] LABS: Absolute Lymphocytes (CBC) 2.3 K/uL (0.7-4.9); Hematocrit 41.2 % (39.6-49.0); Lymphocytes % 12.9 % (15.3-44.8); MCV 89.7 fL (80-100); MPV 6.6 fL (7.6-11.3); Platelets 286 thou/uL (152-406); RBC Red Blood Cell Count 4.59 M/uL (4.33-5.43)
[2023-11-03 06:41] LABS: ALT/SGPT 21 U/L (16-61); Albumin 3.8 g/dL (3.4-5.0); Alkaline Phosphatase 89 U/L (45-117); BUN Blood Urea Nitrogen 23 mg/dL (7-18); Bicarbonate 25 mEq/L (21-32); Bilirubin Total 0.5 mg/dL (0.2-1.0); Glomerular Filtration Rate 86 ml/min (=/>90); Glucose Level 100 mg/dL (74-106); Potassium 3.6 mEq/L (3.5-5.1); Protein, Total 6.9 g/dL (6.4-8.2); Sodium Level 138 mEq/L (136-145)
[2023-11-03 06:42] LABS: AST/SGOT < 4 U/L (15-37)
--- NOTE | 2023-11-03 06:55 | EDPHYS ---
Physician Documentation [facility] Name: Jose Murphy Jr Age: 58 yrs Sex: Male : 1965 Arrival Date: 11/03/2023 Time: 05:39 Bed 5 Private MD: ED Physician Miko Villarreal HPI: 11/03 05:57 This 58 yrs old Male presents to ER via Unassigned with complaints of Rash. ec2 05:57 Patient arrives today for evaluation of a rash. States that he has noted a rash for the ec2 past several days, is notable to the bilateral palms as well as bilateral feet, bilateral elbows. No eye or mouth involvement. No fevers or chills, no nausea or vomiting, no cough or cold symptoms. He also reports a history of multiple myeloma, not on immunosuppressive agents. He states that he was seen for this problem several days ago by his primary care doctor and started on prednisone as well as hydrocortisone cream and fluticasone. Patient reports minimal improvement in symptoms. States he is also been taking some Benadryl some improvement in symptoms.. Historical: - Allergies: 06:09 No Known Allergies; vc1 - PMHx: 06:09 Multiple Myeloma (Poems syndrome); vc1 - PSHx: 06:09 None; vc1 - Immunization history:: Client reports receiving the 2nd dose of the Covid vaccine, Flu vaccine is up to date. - Social history:: Smoking status: Patient denies any tobacco usage or history of. ROS: 05:57 Constitutional: as per hpi ec2 Exam: 05:57 Constitutional: GEN: NAD Head: atraumatic Eyes: EOMI Ears: External ears are ec2 normal. CV: regular rate LUNGS: no respiratory distress ABD: non-distended SKIN: Erythematous rash that is blanchable to the bilateral palms and soles of the feet, no ocular or oropharyngeal involvement MSK: no evidence of trauma NEURO: moves all extremities equally Vital Signs: 06:04 BP 142 / 83; Pulse 82; Resp 18; Temp 98.8; Pulse Ox 100% ; Weight 93.89 kg; Height 5 vc1 ft. 9 in. ; 07:01 BP 137 / 81; Pulse 79; Resp 17 S; Pulse Ox 100% on R/A; lg3 06:04 Body Mass Index 30.57 (93.89 kg, 175.26 cm) vc1 MDM: 05:43 Patient medically screened. ec2 05:57 Data reviewed: vital signs. ED course: Patient arrives today for evaluation of L ec2 blanchable erythematous rash. Examination remarkable for skin findings as above. Will obtain basic lab work to evaluate for organ dysfunction. . 06:28 ED course: On further discussion with patient, patient reports that he has a ec2 dermatology appointment in 1 week.. 06:34 ED course: CBC shows leukocytosis, consistent with the patient's recent prednisone ec2 administration and usage. I have a low clinical index suspicion for acute bacterial infection given the distribution and the appearance of the rash.. 06:48 ED course: Metabolic profile is reassuring. On reassessment patient remains ec2 well-appearing. I will have the patient follow-up with his insurance verification clerk, I have a low suspicion for process such as vasculitis given the distribution of it I have a low suspicion for scleroderma or rheumatologic process.. 11/03 05:56 Order name: CBC with Diff; Complete Time: 06:34 ec2 11/03 05:56 Order name: CMP; Complete Time: 06:48 ec2 Administered Medications: 06:55 Drug: diphenhydrAMINE IM 50 mg IM once Route: IM; Site: right deltoid; ha1 Disposition Summary: 11/03/23 06:55 Discharge Ordered Notes: Location: Home ec2 Condition: Stable ec2 Diagnosis - Dermatitis, unspecified ec2 Followup: ec2 - With: Private Physician - When: - Reason: Recheck today's complaints Discharge Instructions: - Discharge Summary Sheet ec2 - Rash, Adult ec2 Forms: - Medication Reconciliation Form ec2 - Thank You Letter ec2 - Antibiotic Education ec2 - Prescription Opioid Use ec2 - Patient Portal Instructions ec2 - Leadership Thank You Letter ec2 Signatures: Dispatcher [employer] EDMS Darleen Valentino RN RN vc1 Adelina Orozco RN RN ha1 Miko Villarreal MD MD ec2 Corrections: (The following items were deleted from the chart) 06:00 05:57 Patient arrives today for evaluation of a rash. States that he has noted a rash ec2 for the past several days, is notable to the bilateral palms as well as bilateral feet, bilateral elbows. No eye or mouth involvement. No fevers or chills, no nausea or vomiting, no cough or cold symptoms.. ec2
--- NOTE | 2023-11-03 06:55 | ER ---
Nurse's Notes [facility] Name: Jose Murphy Jr Age: 58 yrs Sex: Male : 1965 Arrival Date: 11/03/2023 Time: 05:39 Bed 5 Private MD: Diagnosis: Dermatitis, unspecified Presentation: 11/03 06:04 Chief complaint: Patient states: Had a rash on left hand, bilateral feet, elbow, groin, vc1 and buttock since Tuesday. Say PCP and was prescribed steroids and hydrocortisone cream, was told to take Benadryl every 6 hours. Benadryl takes the edge off and calms it down. The rash will go away for a little but then come back. Coronavirus screen: Vaccine status: Patient reports receiving the 2nd dose of the covid vaccine. At this time, the client does not indicate any symptoms associated with coronavirus-19. Ebola Screen: Patient negative for fever greater than or equal to 101.5 degrees Fahrenheit, and additional compatible Ebola Virus Disease symptoms Patient denies exposure to infectious person. Patient denies travel to an Ebola-affected area in the 21 days before illness onset. No symptoms or risks identified at this time. Initial Sepsis Screen: Does the patient meet any 2 criteria? No. Patient's initial sepsis screen is negative. Does the patient have a suspected source of infection? No. Patient's initial sepsis screen is negative. Risk Assessment: Do you want to hurt yourself or someone else? Patient reports no desire to harm self or others. Onset of symptoms was October 30, 2022. 06:04 Method Of Arrival: Ambulatory vc1 06:04 Acuity: SEA 4 vc1 Triage Assessment: 06:13 General: Appears in no apparent distress. uncomfortable, Behavior is calm, cooperative, vc1 appropriate for age. Pain: Complains of pain in left hand. EENT: No deficits noted. No signs and/or symptoms were reported regarding the EENT system. Neuro: Level of Consciousness is awake, alert, obeys commands, Oriented to person, place, time, situation, Appropriate for age. Cardiovascular: No deficits noted. Respiratory: Airway is patent Respiratory effort is even, unlabored, Respiratory pattern is regular, symmetrical. GI: No deficits noted. No signs and/or symptoms were reported involving the gastrointestinal system. : No deficits noted. No signs and/or symptoms were reported regarding the genitourinary system. Derm: Rash noted that is itchy, red, painful. Musculoskeletal: No deficits noted. No signs and/or symptoms reported regarding the musculoskeletal system. Historical: - Allergies: 06:09 No Known Allergies; vc1 - PMHx: 06:09 Multiple Myeloma (Poems syndrome); vc1 - PSHx: 06:09 None; vc1 - Immunization history:: Client reports receiving the 2nd dose of the Covid vaccine, Flu vaccine is up to date. - Social history:: Smoking status: Patient denies any tobacco usage or history of. Screenin:16 [facility] ED Fall Risk Assessment (Adult) History of falling in the last 3 months, vc1 including since admission No falls in past 3 months (0 pts) Confusion or Disorientation No (0 pts) Intoxicated or Sedated No (0 pts) Impaired Gait No (0 pts) Mobility Assist Device Used No (0 pt) Altered Elimination No (0 pt). Abuse screen: Denies threats or abuse. Nutritional screening: No deficits noted. Tuberculosis screening: No symptoms or risk factors identified. Assessment: 06:17 General: Appears in no apparent distress. comfortable, Behavior is calm, cooperative. lg3 Pain: Complains of pain in groin, right hand, left hand, right foot and left foot. Neuro: No deficits noted. [place]ron Agitation-Sedation Scale (RASS): 0 - Alert and Calm Level of Consciousness is awake, alert, obeys commands, Oriented to person, place, time, situation. Cardiovascular: No deficits noted. Denies chest pain, shortness of breath, Capillary refill < 3 seconds Clubbing of nail beds is absent JVD is absent Patient's skin is warm and dry. Respiratory: No deficits noted. Airway is patent Respiratory effort is even, unlabored, Respiratory pattern is regular, symmetrical. GI: No deficits noted. No signs and/or symptoms were reported involving the gastrointestinal system. : No deficits noted. No signs and/or symptoms were reported regarding the genitourinary system. EENT: No deficits noted. No signs and/or symptoms were reported regarding the EENT system. Derm: Skin is intact, is healthy with good turgor, Skin is dry, Skin is normal, Skin temperature is warm Rash noted that is on right hand, left hand, right foot and left foot. Musculoskeletal: No deficits noted. No signs and/or symptoms reported regarding the musculoskeletal system. Circulation, motion, and sensation intact. Range of motion: intact in all extremities. 07:01 Reassessment: Patient appears in no apparent distress at this time. No changes from lg3 previously documented assessment. Patient and/or family updated on plan of care and expected duration. Pain level reassessed. Patient is alert, oriented x 3, equal unlabored respirations, skin warm/dry/pink. Vital Signs: 06:04 BP 142 / 83; Pulse 82; Resp 18; Temp 98.8; Pulse Ox 100% ; Weight 93.89 kg; Height 5 vc1 ft. 9 in. ; 07:01 BP 137 / 81; Pulse 79; Resp 17 S; Pulse Ox 100% on R/A; lg3 06:04 Body Mass Index 30.57 (93.89 kg, 175.26 cm) vc1 ED Course: 05:43 Patient arrived in ED. [id number] 05:43 Miko Villarreal MD is Attending Physician. ec2 06:09 Triage completed. vc1 06:13 Arm band placed on right wrist. vc1 06:17 Patient has correct armband on for positive identification. Placed in gown. Bed in low lg3 position. Call light in reach. Side rails up X 1. Client placed on continuous cardiac and pulse oximetry monitoring. NIBP monitoring applied. Door closed. Noise minimized. Warm blanket given. Family accompanied patient. 06:17 Inserted saline lock: 22 gauge in left antecubital area, using aseptic technique. Blood lg3 collected. 06:19 Deborah Breen RN is Primary Nurse. lg3 06:19 CMP Sent. lg3 06:19 CBC with Diff Sent. lg3 07:01 No provider procedures requiring assistance completed. IV discontinued, intact, lg3 bleeding controlled, No redness/swelling at site. Pressure dressing applied. Administered Medications: 06:55 Drug: diphenhydrAMINE IM 50 mg IM once Route: IM; Site: right deltoid; ha1 Medication: 06:16 VIS not applicable for this client. vc1 Outcome: 06:55 Discharge ordered by . ec2 07:01 Discharged to home ambulatory, with significant other, lg3 07:01 Condition: stable 07:01 Discharge instructions given to patient, Instructed on discharge instructions, follow up and referral plans. Demonstrated understanding of instructions, follow-up care, 07:02 Patient left the ED. lg3 Signatures: Deborah Breen RN RN lg3 Leisa Burch [id number] Darleen Valentino RN RN vc1 Adelina Orozco RN RN ha1 Miko Villarreal MD MD ec2
[2023-11-03 11:32] VITALS: TEMP 98.8; O2SAT 100
[2023-11-03 11:46] VITALS: BP 137/81
== END ==
LOC: ER 05:39
DX: L30.9 Dermatitis, unspecified (principal); Z85.79 Personal history of other malignant neoplasms of lymphoid, hematopoietic and related tissues
CPT/HCPCS: 85025; 36415; 80053; 96372; 99284; J1200